=== PATIENT | female | born 1935 | race Caucasian/White ===

== ENCOUNTER → 2019-06-27 12:32 | Outpatient (CLI) | payer MEDICARE, MEDICAID, SELFPAY ==
--- NOTE | ~2019-06-27 | CT_ITS ---
EXAMINATION: CT abdomen pelvis wo con EXAM DATE: 06/27/2019 12:57 INDICATION: Right lower quadrant pain. History of colon resection. Constipation. TECHNIQUE: Spiral CT of the abdomen and pelvis was performed without contrast. Axial, coronal and s agittal images were reviewed. The dose-length product (DLP) for this examination was 960.87 mGy-cm. The exposure was tailored according to patient size (auto mA exposure control), and iterative recons truction (ASIR) was used as additional dose reduction technique. There is no prior study for compari son. FINDINGS: The liver, spleen, adrenal glands and pancreas are unremarkable. Gallbladder is unremarkab le. No biliary obstruction. There is no nephrolithiasis or hydronephrosis. The uterus is antevert ed and morphologically normal. The bladder is unremarkable. There is no retroperitoneal or pelvic lymphadenopathy. There is mild to moderate scattered arteriosclerotic disease. Anterior abdominal w all mesh. Probable cecal resection. There are surgical changes from intact gastric bypass surgery. There is e xpected amount of colonic stool. No free intraperitoneal gas. Cardiomegaly. The lung bases are u nremarkable. There are no osteoblastic or osteolytic lesions identified. Chronic L5 bilateral spondy lolysis with 50% anterolisthesis L5 on S1. Advanced thoracolumbar disc disease. Mild to moderate scol iosis. IMPRESSION: 1. No acute intra-abdominal findings. 2. Surgical changes. 3. Cardiomegaly. Reviewed, dictated and finalized at location B. RAL ASSISTANT
== END ==
PROVIDERS: Visit Provider Surgery
DX: R10.31 Right lower quadrant pain (principal); I51.7 Cardiomegaly
CPT/HCPCS: 74176

== ENCOUNTER 2019-11-05 10:40 | Outpatient (CLI) | payer MEDICARE, MEDICAID, SELFPAY ==
[2019-11-05 11:20] LABS: Hematocrit 33.3 % (37.0-47.0); Hemoglobin 11.2 g/dL (12.0-15.0); Mean Corpuscular HGB Conc 33.6 g/dl (32-36); Mean Corpuscular Hemoglobin 34.4 pg (26-34); Mean Corpuscular Volume 102.1 fl (80-100); Mean Platelet Volume 10.8 fl (7.4-10.4); Platelet Count Result 150 k/mm3 (150-375); Red Blood Count 3.26 M/mm3 (4.2-5.4); Red Cell Distribution Width 16.4 % (11.5-14.5); White Blood Count 6.3 K/mm3 (4.5-10.0)
[2019-11-05 11:32] LABS: Albumin Level 4.4 g/dL (3.5-5.1); Blood Urea Nitrogen 42 mg/dL (7-17); Calcium 9.4 mg/dL (8.4-10.2); Carbon Dioxide 28 mmol/L (22-30); Chloride 92 mmol/L (98-107); Eosinophils Absolute Manual 0.06 K/mm3 (0.02-0.5); Eosinophils Percent Manual 1 % (0-4); Estimated Glomerular Filt Rate 47; Glucose 95 mg/dL (65-105); Lymphocytes Absolute Manual 1.44 K/mm3 (1.1-4.5); Monocytes Absolute Manual 1.07 K/mm3 (0.1-0.90); Monocytes Percent Manual 17 % (3-9); Neutrophils Percent Manual 59 % (46-73); Phosphorus 3.8 mg/dL (2.5-4.5); Platelet Estimate Adequate (Adequate); Potassium 3.9 mmol/L (3.4-5.0); Sodium 129 mmol/L (137-145); Total Cells Counted 100
[2019-11-05 11:33] LABS: Hypochromasia 1+ (NORMAL); Stomatocytes 1+ (NORMAL)
[2019-11-05 11:34] LABS: Alanine Aminotransferase 25 U/L (4-35); Albumin Level 4.3 g/dL (3.5-5.1); Alkaline Phosphatase 133 U/L (38-126); Aspartate Amino Transferase 41 U/L (14-36); Bilirubin,Total 1.1 mg/dL (0.2-1.3); Blood Urea Nitrogen 45 mg/dL (7-17); Calcium 9.3 mg/dL (8.4-10.2); Carbon Dioxide 27 mmol/L (22-30); Chloride 93 mmol/L (98-107); Cholesterol 120 mg/dL (0-200); Estimated Glomerular Filt Rate 47; Glucose 94 mg/dL (65-105); HDL Direct 61 mg/dL; Magnesium 1.6 mg/dL (1.6-2.3); Sodium 129 mmol/L (137-145); Triglycerides 56 mg/dL (<150)
[2019-11-05 11:44] LABS: Parathyroid Intact 141.2 pg/mL (7.5-53.5)
[2019-11-05 11:45] LABS: LDL Cholesterol Direct 45 mg/dL
[2019-11-05 12:17] LABS: Free T4 Free Thyroxine 2.09 ng/mL (0.78-2.19); Vitamin D 25 Hydroxy 54.5 ng/mL
[2019-11-08 05:51] LABS: Ionized Calcium 4.9 mg/dL (4.8-5.6)
== END 2019-11-05 10:41 | disposition home or self-care (01) ==
PROVIDERS: PCP Family Medicine; Referring Provider Internal Medicine Cardiovascular Disease; Visit Provider Internal Medicine Endocrinology, Diabetes & Metabolism
DX: G89.29 Other chronic pain (principal); M54.5 Low back pain; I10 Essential (primary) hypertension; E03.9 Hypothyroidism, unspecified; E21.3 Hyperparathyroidism, unspecified; E83.42 Hypomagnesemia
CPT/HCPCS: 36415; 80053; 80061; 80069; 82306; 82330; 83735; 83970; 84100; 84439; 84443; 85025; 99212; G0463

== ENCOUNTER 2019-11-26 08:06 | Outpatient (CLI) | payer MEDICARE, MEDICAID, SELFPAY ==
--- NOTE | ~2019-11-26 | NM_ITS ---
EXAMINATION: NM parathyroid w imaging DATE: 11/26/2019 15:12 INDICATION: Hypothyroidism TECHNIQUE: 21.1 mCi Tc99m Cardiolite (sestamibi) was administered by intravenous route. Anterior imag es of the neck were obtained at 10 minutes and 2 hours. COMPARISON: None. FINDINGS/IMPRESSION: There is no focus of persistent activity in the area of the thyroid or mediastinum to suggest parathy roid adenoma. Reviewed, dictated and finalized at location A.
== END 2019-11-26 08:07 | disposition home or self-care (01) ==
PROVIDERS: PCP Family Medicine; Visit Provider Internal Medicine Endocrinology, Diabetes & Metabolism
DX: E03.9 Hypothyroidism, unspecified (principal); E21.3 Hyperparathyroidism, unspecified
CPT/HCPCS: 78070; A9500

== ENCOUNTER 2019-12-09 13:26 | Outpatient (CLI) | payer MEDICARE, MEDICAID, SELFPAY ==
--- NOTE | ~2019-12-09 | DEXA_ITS ---
Bone Density Report Name: Radha Knox Age: 83 Sex: Female Ethnicity: White Date of : 1935 Indication: osteopenia; monitoring treatment; hyperparathyroidism; height loss; hysterectomy; rheumatoid arthritis; postmenopausal Referring Provider: Guera Stewart Study: Bone densitometry was performed. Exam Date: December 09, 2019 Accession number: [id number] Bone Density: Region BMD T-score Z-score Classification AP Spine (L1, L2, L3) 0.919 -0.9 1.9 Normal Femoral Neck (Left) 0.557 -2.6 -0.1 Osteoporosis Total Hip (Left) 0.763 -1.5 0.9 Osteopenia Total Hip Bilateral Avg 0.746 -1.7 0.8 Osteopenia Femoral Neck (Right) 0.543 -2.8 -0.2 Osteoporosis Total Hip (Right) 0.727 -1.8 0.6 Osteopenia World Health Organization criteria for BMD impression classify patients as: Normal (T-score at or above -1.0), Osteopenia (T-score between -1.0 and -2.5), or Osteoporosis (T-score at or below -2.5). 10-year Fracture Risk: FRAX not reported because: Some T-score for Spine Total or Hip Total or Femoral Neck at or below -2.5 Treated for osteoporosis Previous Exams: Region Exam Age BMD T-score BMD Change BMD Change Date g/cm2 vs Baseline vs Previous AP Spine(L1, L2, L3) 12/09/2019 83 0.919 -0.9 0.052(6.0%)# 0.047(5.4%)# 09/07/2005 69 0.872 -1.3 0.005(0.5%) 0.005(0.5%) 12/04/2002 66 0.868 -1.4 Total Hip(Left) 12/09/2019 83 0.763 -1.5 0.002(0.3%)# 0.003(0.3%)# 09/07/2005 69 0.761 -1.5 0.000(0.0%) 0.000(0.0%) 12/04/2002 66 0.761 -1.5 Total Hip(Right) 12/09/2019 83 0.727 -1.8 -0.032(-4.2%)# 0.058(8.6%)# 09/07/2005 69 0.669 -2.2 -0.090(-11.8%) -0.090(-11.8%) 12/04/2002 66 0.759 -1.5 *Denotes significance at 95% confidence level, LSC for AP Spine = 0.022 g/cm2, LSC for Total Hip = 0.027 g/cm2 Clinical Information Provided by Patient: Has rheumatoid arthritis Is being treated for osteoporosis Has used the following medications: Fosamax (i.e. alendronate), Vitamin D, Calcium Has the following medical conditions: Hyperparathyroidism, Hysterectomy Patient maximum height was 63 Menopause Age: 49 Drinks caffeinated beverages Onset of menses at age 13 Number of children 6 Impression: The patient has osteoporosis, based on the Right Femoral Neck T-score. No significant bone loss was observed. Discussion: PATIENT UNDER TREATMENT WITH NO SIGNIFICANT BMD LOSS SINCE LAST EXAM. In an untreated patient, BMD typi
== END 2019-12-09 13:27 | disposition home or self-care (01) ==
PROVIDERS: PCP Family Medicine; Visit Provider Internal Medicine Endocrinology, Diabetes & Metabolism
DX: E21.3 Hyperparathyroidism, unspecified (principal); M81.0 Age-related osteoporosis without current pathological fracture; M85.852 Other specified disorders of bone density and structure, left thigh; M85.851 Other specified disorders of bone density and structure, right thigh
CPT/HCPCS: 77080

== ENCOUNTER 2020-02-23 10:53 | Outpatient (CLI) | payer MEDICARE, MEDICAID, SELFPAY ==
[2020-02-23 12:29] LABS: Anion Gap 7 mmol/L (8-16); Blood Urea Nitrogen 38 mg/dL (7-17); Calcium 9.5 mg/dL (8.4-10.2); Carbon Dioxide 32 mmol/L (22-30); Chloride 95 mmol/L (98-107); Estimated Glomerular Filt Rate 47; Glucose 95 mg/dL (65-105); Magnesium 1.7 mg/dL (1.6-2.3); Sodium 134 mmol/L (137-145)
== END 2020-02-23 10:54 | disposition home or self-care (01) ==
LOC: ANHLAB 11:01 → ANHVASCINF 11:10
PROVIDERS: Referring Provider Family Medicine; Visit Provider Internal Medicine Cardiovascular Disease
DX: I50.32 Chronic diastolic (congestive) heart failure (principal); E83.42 Hypomagnesemia
CPT/HCPCS: 36415; 80048; 83735; 99212; G0463

== ENCOUNTER 2020-05-10 14:16 | Outpatient (CLI) | payer MEDICARE, MEDICAID, SELFPAY ==
[2020-05-10 15:17] LABS: Anion Gap 6 mmol/L (8-16); Blood Urea Nitrogen 57 mg/dL (7-17); Calcium 9.8 mg/dL (8.4-10.2); Carbon Dioxide 32 mmol/L (22-30); Chloride 99 mmol/L (98-107); Estimated Glomerular Filt Rate 43; Glucose 89 mg/dL (65-105); Magnesium 1.9 mg/dL (1.6-2.3); Potassium 4.5 mmol/L (3.4-5.0); Sodium 137 mmol/L (137-145)
== END 2020-05-10 14:17 | disposition home or self-care (01) ==
LOC: ANHLAB 14:21
PROVIDERS: Visit Provider Internal Medicine Cardiovascular Disease
DX: I50.32 Chronic diastolic (congestive) heart failure (principal)
CPT/HCPCS: 36415; 80048; 83735

== ENCOUNTER 2020-08-24 09:18 | Inpatient (IN) | payer MEDICARE, MEDICAID, SELFPAY ==
[2020-08-24] VITALS (46 sets, daily range): BP systolic 74–126; BP diastolic 34–75; PULSE 60–94; RESP 13–21; TEMP 36.2–36.8; O2SAT 95–100; BMI 43.4
--- NOTE | ~2020-08-24 | CT_ITS ---
EXAMINATION: CT cervical spine [facility] EXAM DATE: 08/25/2020 13:37 INDICATION: Neck pain. TECHNIQUE: Spiral CT of the cervical spine was performed without contrast. Axial images were reviewe d. Coronal and sagittal reformatted images were also reviewed. The dose-length product (DLP) for thi s examination was 450.33 mGy-cm. The exposure was tailored according to patient size (auto mA exposu re control), and iterative reconstruction (ASIR) was used as additional dose reduction technique. ere is no prior study for comparison. FINDINGS: There is calcified pannus posterior to the odontoid process. The vertebral bodies are al igned in the AP dimension. There is moderate to severe loss of the disc height at C5-6 and 6-7. The odontoid process is intact. The lateral masses of C1 line up with C2. Prevertebral soft tissue a nd pre-dens space are within normal limits. There are no acute fractures identified. Level by level evaluation: C2-C3: Disc does not extend beyond the endplate margin. Uncovertebral joint arthropathy: None. Facet joint arthropathy: Moderate right, mild left. Neural foraminal stenosis: No stenosis. Central canal stenosis: No stenosis. C3-C4: Disc does not extend beyond the endplate margin. Uncovertebral joint arthropathy: None. Facet joint arthropathy: Mild to moderate bilateral. Neural foraminal stenosis: No stenosis. Central canal stenosis: No stenosis. C4-C5: There is a mild diffuse disc bulge. Uncovertebral joint arthropathy: Mild bilateral. Facet joint arthropathy: Mild to moderate bilateral. Neural foraminal stenosis: No stenosis. Central canal stenosis: No stenosis. C5-C6: There is a mild diffuse disc bulge. Uncovertebral joint arthropathy: Mild to moderate bilateral. Facet joint arthropathy: Mild to moderate bilateral. Neural foraminal stenosis: Mild to moderate right, mild left. Central canal stenosis: No stenosis. C6-C7: There is a mild diffuse disc bulge. Uncovertebral joint arthropathy: Mild to moderate bilateral. Facet joint arthropathy: Mild to moderate bilateral. Neural foraminal stenosis: Mild bilateral. Central canal stenosis: No stenosis. C7-T1: Disc does not extend beyond the endplate margin. Uncovertebral joint arthropathy: None. Facet joint arthropathy: Moderate bilateral. Neural foraminal stenosis: No stenosis. Central canal stenosis: No stenosis. IMPRESSION: 1. Cervical spondylosis most advanced C5-6 and 6-7. 2. No central canal stenosis or acute findings. Reviewed, dictated and finalized at location A.
--- NOTE | ~2020-08-24 | CT_ITS ---
EXAMINATION: CTA chest DATE: 08/24/2020 10:44 CDT INDICATION: Sudden chest pain in the arm for 3 days TECHNIQUE: Computed tomographic angiography (CTA) of the chest was performed with 100 mL Omnipaque-35 0 intravenous contrast. The dose-length product was 857.55 mGy-cm. Maximum intensity projection 3D-re constructions of the aorta and other arteries were constructed by the technologist on a separate work station. Automated exposure control and iterative reconstruction technique were employed. COMPARISON: Chest x-ray dated 10/18/2017. FINDINGS: There is no evidence for aortic aneurysm or dissection. There is atherosclerosis of the aor ta and coronary arteries. Small amount of gas in the heart, consistent with recent injection. Cardiom egaly. No significant pleural or pericardial effusion. No thoracic lymphadenopathy. No evidence for p ulmonary embolism. No endobronchial lesions. Calcified granuloma right lower lobe. Bibasilar dependen t atelectasis. No pneumothorax identified. There is dependent atelectasis. Dextroscoliosis with moder ate thoracic spondylosis. No suspicious pulmonary nodules or masses. IMPRESSION: 1. No findings to account for patient's symptoms. No evidence for aortic aneurysm, dissection or pulm onary embolism. Reviewed, dictated and finalized at location B. IMPRESSION: 1. No findings to account for patient's symptoms. No evidence for aortic aneury sm, dissection or pulmonary embolism.
--- NOTE | ~2020-08-24 | CT_ITS ---
EXAMINATION: CT thoracic spine w con DATE: 08/24/2020 17:08 INDICATION: Back pain. TECHNIQUE: Computed tomography (CT) of the thoracic spine was performed with 100 mL Omnipaque 350 int ravenous contrast. Automated exposure control and iterative reconstruction technique were employed. T he dose-length product was 858 mGy-cm. COMPARISON: None FINDINGS: There is 21 degrees dextroscoliosis of thoracic spine. There is mild chronic anterior wedgi ng of multiple vertebral bodies. No acute fracture. There is decreased disc height at multiple levels including severely decreased disc height from T2-T3 through T5-T6 and T8-T9 through L1-L2. There is a healing fracture right 11th rib. The discs are bulging from T4-T5 through T12-L1 with mild central canal stenosis. There is multilevel facet joint osteoarthritis, mild to moderate at most levels. Ther e is mild neural foraminal stenosis at multiple levels bilaterally. On the right, there is moderate n eural foraminal stenosis at T2-T3, T3-T4, and T10-T11. On the left, there is moderate neural foramina l stenosis at T2-T3 and T8-T9 and severe neural foraminal stenosis at T9-T10 and T10-T11. IMPRESSION: 1. Severe thoracic spondylosis. 2. Thoracic dextroscoliosis. Reviewed, dictated and finalized at location A.
--- NOTE | ~2020-08-24 | US_ITS ---
EXAMINATION: US venous doppler LE EXAM DATE: 08/24/2020 15:42 INDICATION: Bilateral leg edema. Swelling. TECHNIQUE: Multiple grayscale, color flow and Doppler images of the lower extremity deep venous syste ms bilaterally were obtained and reviewed. Comparison is made to prior examination from 06/11/2012. FINDINGS: Right side: The right common femoral, femoral and profunda veins demonstrate normal color flow, respi ratory variation, augmentation and compressibility. Compressibility, color flow confirmed within the right popliteal, posterior tibial, peroneal, and greater saphenous veins. Cystic mass in the poplit eal fossa measuring 2.0 x 4.8 x 2.7 cm, Sanchez's cyst. Left side: The left common femoral, femoral and profunda veins demonstrate normal color flow, respira tory variation, augmentation and compressibility. Compressibility, color flow confirmed within the l eft popliteal, posterior tibial, peroneal, and greater saphenous veins. IMPRESSION: 1. No lower extremity deep venous thrombosis bilaterally. 2. 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 Reviewed, dictated and finalized at location A.
--- NOTE | 2020-08-24 10:05 | ECG_ITS ---
Measurements Intervals [place] Rate: 86 P: DC: 0 QRS: 176 QRSD: 101 T: 9 QT: 359 QTc: 431 Interpretive Statements ATRIAL FIBRILLATION RIGHT AXIS DEVIATION INCOMPLETE RIGHT BUNDLE BRANCH BLOCK LOW VOLTAGE- PRECORDIAL LEADS CANNOT RULE OUT SEPTAL INFARCT, AGE INDETERMINATE BORDERLINE ST-T WAVE ABNORMALITY- INFERIOR LEADS BASELINE ARTIFACT- I, III, AVR, AVL, AVF, V5-V6 ABNORMAL ECG Electronically Signed On 08-24-2020 10:28:42 CDT by Jf Melvin D.O.
[2020-08-24 10:18] LABS: Basophils Percent Auto 0.7 % (0.2-1.2); Eosinophils Absolute Auto 0.1 K/mm3 (0-0.3); Eosinophils Percent Auto 1.8 % (0-4.4); Hematocrit 36.9 % (37.0-47.0); Hemoglobin 12.2 g/dL (12.0-15.0); Immature Granulocyte Absolute 0.02 K/mm3 (0.00-0.031); Immature Granulocyte Percent A 0.3 % (0-0.5); Lymphocytes Absolute Auto 2.34 K/mm3 (0.9-3.2); Lymphocytes Percent Auto 38.2 % (18.3-44.2); Mean Corpuscular HGB Conc 33.1 g/dl (32-36); Mean Corpuscular Hemoglobin 35.8 pg (26-34); Mean Corpuscular Volume 108.2 fl (80-100); Mean Platelet Volume 12.6 fl (7.4-10.4); Monocytes Absolute Auto 1.4 K/mm3 (0.1-0.6); Monocytes Percent Auto 22.7 % (2.6-8.5); Neutrophils Absolute Auto 2.2 K/mm3 (1.3-6.7); Neutrophils Percent Auto 36.3 % (45.5-73.1); Nucleated Red Blood Cells Absolute Auto 0.1 K/mm3 (0.0-0.012); Nucleated Red Blood Cells Perc 2.1 % (0.0-0.2); Platelet Count Result 114 k/mm3 (150-375); Red Blood Count 3.41 M/mm3 (4.2-5.4); Red Cell Distribution Width 18.4 % (11.5-14.5); White Blood Count 6.1 K/mm3 (4.5-10.0)
[2020-08-24 10:21] LABS: Estimated CRCL calculation 30 ml/min; Estimated Glomerular Filt Rate 39
[2020-08-24 10:28] LABS: INR 1.4; Prothrombin Time 18.1 Seconds (11.1-14.7)
[2020-08-24 10:30] LABS: Anisocytosis 1+ (NORMAL); Ovalocytes 1+ (NORMAL); Poikilocytosis 1+ (NORMAL); Stomatocytes 1+ (NORMAL); Target Cells 1+ (NORMAL)
[2020-08-24 11:08] LABS: Add Urine Microscopic? YES; Appearance Urine Cloudy (Clear); Bacteria Urine Trace /hpf; Bilirubin Urine Negative (Negative); Color Urine Yellow (Yellow); Glucose Urine UA Negative (Negative); Ketones Urine Negative (Negative); Leukocyte Esterase Ur 1+ LEU/UL (Negative); Mucus Urine Rare /lpf; Nitrate Urine Positive (Negative); Protein Urine Negative (Negative); RBC Urine 0-2 /hpf (0-2); Specific Grav Ur 1.017 (1.001-1.035); Urobilinogen Urine Negative mg/dL (<2.0)
[2020-08-24 11:15] LABS: Blood Urine Negative (Negative)
--- NOTE | 2020-08-24 11:38 | PC.NURSE ---
1115 - This Rn assumed care of patient, bedside shift report obtained from WILLIAMS Boggs. Patient reporting pain and requesting pain medicine. 1130 - Hydromorphone order cancelled due to blood pressure of 97/60 per MD. Patient requesting Tramadol as she takes this at home per her POA at bedside. MD Cheng informed.
[2020-08-24 12:03] LABS: Alanine Aminotransferase 30 U/L (4-35); Albumin Level 3.7 g/dL (3.5-5.1); Alkaline Phosphatase 125 U/L (38-126); Anion Gap 6 mmol/L (8-16); Aspartate Amino Transferase 45 U/L (14-36); Bilirubin,Total 1.2 mg/dL (0.2-1.3); Blood Urea Nitrogen 52 mg/dL (7-17); Calcium 9.2 mg/dL (8.4-10.2); Carbon Dioxide 28 mmol/L (22-30); Chloride 96 mmol/L (98-107); Estimated CRCL calculation 30 ml/min; Estimated Glomerular Filt Rate 39; Glucose 90 mg/dL (65-105); Potassium 4.9 mmol/L (3.4-5.0); Sodium 130 mmol/L (137-145)
[2020-08-24 12:13] LABS: Troponin I < 0.012 ng/mL (0.000-0.034)
[2020-08-24 12:17] LABS: NT Pro B Type Natriuretic Pept 2290 PG/ML (5-100)
[2020-08-24] MEDS: traMADol/ACETAMINOPHEN (*CRX) (ULTRACET) 37.5/325 MG TABLET 1 TAB PO (12:18)
--- NOTE | 2020-08-24 13:02 | PC.NURSE ---
1302 - Meal tray ordered for patient. sterile technician at bedside for 2 hour troponin blood draw.
--- NOTE | 2020-08-24 13:16 | PC.NURSE ---
1310 - MD Cheng informed of patient's blood pressure of 88/50, no new orders at this time. Per MD no fluids ordered due to potential fluid overload. 1315 - MD Cheng informed of patient's blood pressure of 78/56, no new orders at this time.
--- NOTE | 2020-08-24 13:37 | PC.NURSE ---
1330 -JANET Aguilera updated on patient's blood pressures. Manual blood pressure 80/60, patient remains alert but drowsy and is conversing with this RN. Family at bedside. Patient repositioned in bed and is now being assisted with eating meal tray by family.
[2020-08-24 13:41] LABS: Troponin I < 0.012 ng/mL (0.000-0.034)
--- NOTE | 2020-08-24 14:40 | PC.NURSE ---
Chrissy, Hospitalist [employer]IT[employer] REPAIRER at bedside, aware of persistent hypotension and current blood pressure of 86/52. Patient remains alert, conversing with RN. Daughter at bedside updated on plan of care by RANDY Lowe.
--- NOTE | 2020-08-24 14:45 | PC.NURSE ---
1430 - This RN checking with RANDY Lowe and MD Cheng regarding fluid order due to BLE edema and CHF hx.
--- NOTE | 2020-08-24 14:53 | ED.CHESTPAIN ---
HPI - Chest Pain General Chief Complaint: Chest Pain Stated Complaint: chest pain/leg swelling/weakness Time Seen by Provider: 08/24/20 09:25 Source: patient and family Mode of arrival: ambulatory Limitations: no limitations History of Present Illness HPI narrative: 84-year-old female Patient complains of a 3-day history of severe pain in her left upper chest She notes that this pain began suddenly while she was simply sitting and at rest and has not improved, if anything it is a little worse She does not notice anything that relieves or exacerbates this pain In addition to the pain she notes that her legs are bilaterally much more swollen than usual, and that she feels like she is urinating less than usual She does not have any particular shortness of breath, she is not diaphoretic, she does not have a cough or a fever, she does not have abdominal pain or vomiting Her past history is notable for atrial fibrillation and she takes Eliquis for this, aortic stenosis, and diastolic heart failure and is on Lasix for that Her most recent appointment with Dr. Schulz was in April, she says she has been taking her medications Related Data Home Medications Medication Instructions Recorded Confirmed apixaban 5 mg tablet 5 mg PO BID 05/29/19 08/02/20 ascorbic acid (vitamin C) 500 mg mg PO 05/29/19 08/02/20 capsule thiamine HCl (vitamin B1) 50 mg 50 mg PO BID tablet 08/27/19 08/02/20 tablet magnesium oxide 800 mg PO BID tablet 10/22/19 08/02/20 potassium chloride 10 mEq 20 meq PO DAILY tablet 01/26/20 08/02/20 tablet,extended release vitamin B complex 1 tablet PO DAILY 01/26/20 08/02/20 bumetanide 0.5 mg tablet 0.5 mg PO BID tablet 08/02/20 08/02/20 Allergies Allergy/AdvReac Type Severity Reaction Status Date / Time adhesive Allergy Unknown rash Verified 08/24/20 10:52 ciprofloxacin Allergy Unknown Upset Verified 08/24/20 10:52 stomach codeine Allergy Unknown Unknown Verified 08/24/20 10:52 diazepam Allergy Unknown Unknown Verified 08/24/20 10:52 fenoprofen Allergy Unknown Unknown Verified 08/24/20 10:52 lorazepam Allergy Unknown Unknown Verified 08/24/20 10:52 Sulfa (Sulfonamide Allergy Unknown Unknown Verified 08/24/20 10:52 Antibiotics) Review of Systems Review of Systems: All systems reviewed & are unremarkable except as noted in HPI and below Constitutional: Constitutional: Denies chills, Reports fatigue, Denies fever(s), Denies headache(s) and Reports weakness Eyes: Eyes: Reports no additional eye complaints and Denies change in vision ENT: Denies headache(s), Denies epistaxis, Denies nasal congestion and Denies sore throat Cardiovascular: Cardiovascular: Reports chest pain, Denies leg edema, Denies palpitations and Denies dyspnea Respiratory: Respiratory: Denies cough and Denies dyspnea Gastrointestinal: Gastrointestinal: Denies abdominal pain, Denies diarrhea, Denies nausea and Denies vomiting Genitourinary: Genitourinary: Denies hematuria, Denies urinary frequency and Denies dysuria Musculoskeletal: Musculoskeletal: Reports myalgias, Denies deformity, Denies arthralgias, Denies joint swelling, Denies muscle weakness and Denies numbness Integumentary/Breasts: Skin/Breast: Denies rash and Denies wounds Neurologic: Denies headache(s), Denies focal weakness, Denies numbness and Denies weakness Psychiatric: Psychiatric: Reports no additional psychiatric complaints Endocrine: Endocrine: Reports fatigue and Denies palpitations Hematologic/Lymphatic: Hematologic/Lymphatic: Denies easy bleeding and Reports easy bruising PMFSH Past Medical History Medical History Anxiety Aortic stenosis, moderate Chronic atrial fibrillation Chronic diastolic heart failure Chronic low back pain without sciatica CKD (chronic kidney disease) stage 3, GFR 30-59 ml/min Essential (primary) hypertension History of colon cancer History of colon cancer His
--- NOTE | 2020-08-24 14:59 | PM.IMHP ---
H&P: HPI History of Present Illness Date/Time: 08/24/20 14:59Thikaylin is a 84-year-old female patient with diastolic congestive heart failure, chronic atrial fibrillation. Chronic back pain. 3 day history of severe pain to the left upper chest. When I palpated her upper chest she did have a reducible pain. The patient does have severe osteoporosis without any pathological fracture. She also has osteoarthritis. The patient does take Ultram at home. The patient also has chronic renal failure and takes Bumex at home. The patient denies any shortness of breath. She stated that her a chest pain does not radiate down her left arm or upper left neck. It does not radiate to her back. She does not have any nausea vomiting. She has no fever. The patient stated that she has been taking her Eliquis. Patient's last echo was on 11/12/2018 and her EF was between 60 and 65%. Diastolic dysfunction. Severe aortic stenosis peak gradient of 44 mm/hg. Aortic Rosy appears severely restricted. Still shows no findings to account for patient's symptoms. No evidence of aortic aneurysm dissection or pulmonary embolism. Blood pressure was low at 70 8/56 and 80/60. The granddaughter also reported that the patient had low urinary output as well. The patient is also complaining of having motility issues. The patient had been given and Ultram in the emergency room for the pain. The patient has 4+ pitting edema. Services on 08/24/2020. Chief Complaint: Chest pain Review of Systems Review of Systems: All systems reviewed & are unremarkable except as noted in HPI and below Constitutional: Constitutional: Reports as per HPI and Reports no additional constitutional complaints Eyes: Eyes: Reports as per HPI and Reports no additional eye complaints ENT: Reports system reviewed and no additional complaints, except as documented and Reports Normal hearing present Cardiovascular: Cardiovascular: Reports no additional cardiovascular complaints Respiratory: Respiratory: Reports no additional respiratory complaints and Reports no additional respiratory complaints Gastrointestinal: Gastrointestinal: Reports as per HPI and Reports no additional gastrointestinal complaints Musculoskeletal: Musculoskeletal: Reports no additional musculoskeletal complaints Integumentary/Breasts: Skin/Breast: Reports system reviewed and no additional complaints, except as docu and Reports as per HPI Neurologic: Reports system reviewed and no additional complaints, except as documented, Reports as per HPI and Reports Normal hearing present Psychiatric: Psychiatric: Reports no additional psychiatric complaints and Reports as per HPI Endocrine: Endocrine: Reports no additional endocrine complaints Hematologic/Lymphatic: Hematologic/Lymphatic: Reports no additional hematologic/lymphatic complaints Allergic/Immunologic: Allergic/Immunologic: Reports no additional allergic/immunologic complaints FOR[facility]LY [facility] Past Medical History Medical History Anxiety Aortic stenosis, moderate Chronic atrial fibrillation Chronic diastolic heart failure Chronic low back pain without sciatica CKD (chronic kidney disease) stage 3, GFR 30-59 ml/min Essential (primary) hypertension History of colon cancer History of colon cancer History of small bowel obstruction Hyperparathyroidism Hypomagnesemia Hypothyroidism (acquired) Insomnia Osteoarthritis Osteoporosis without current pathological fracture RLS (restless legs syndrome) Urinary incontinence in female Vitamin D deficiency Surgical History Surgical History H/O gastric bypass (~1959) History of abdominal surgery History of x6 1953, 1955, 1958, 1960, 1962,1964 History of carpal tunnel release (~2014) History of colon resection (~2003) History of exploratory laparotomy massive adhesiolysis removal mesh foreign body release of small bowel
[2020-08-24] MEDS: SODIUM CHLORIDE 0.9% IV 1,000 ML 30 ML IV CONT (15:14)
--- NOTE | 2020-08-24 15:18 | PC.NURSE ---
1518 - NS 500 mL bolus started per MD Cheng, then infuse remaining 500mL of NS at 30/mL after reassessment of patient per MD Cheng.
--- NOTE | 2020-08-24 16:15 | PC.NURSE ---
1548 - Report called to WILLIAMS Baez by JANET Aguilera.
--- NOTE | 2020-08-24 16:27 | PM.CNCAR ---
Assessment and Plan Assessment and plan (1) Aortic stenosis, moderate: Code(s): I35.0 - Nonrheumatic aortic (valve) stenosis Status: Acute Assessment and Plan: History of moderate aortic stenosis. 2D echocardiogram with Dopplers ordered and will be reviewed. (2) Chronic atrial fibrillation: Code(s): I48.20 - Chronic atrial fibrillation, unspecified Status: Acute Assessment and Plan: On anticoagulation heart rate is controlled. Continue metoprolol for rate control as long as blood pressure allows (3) Hypotension: Code(s): I95.9 - Hypotension, unspecified Status: Acute Assessment and Plan: I have already given her verbal order for 500 cc fluid bolus with some improvement in her blood pressure. Avoid over use of pain medications. Hold lisinopril for now. (4) Nonspecific chest pain: Code(s): R07.9 - Chest pain, unspecified Status: Acute Assessment and Plan: Her chest pain is constant in nature and severe. It is radiating to her back and her back pain is highly reproducible by pushing on her spine. She also has sub mammary left-sided chest pain which is also reproducible by pushing on her chest. The fact her troponins are negative despite this longstanding and severe chest pain most likely indicates that this is not coronary in etiology. Other possibilities are most likely musculoskeletal or even GI/ulcer disease versus other (5) Chronic anticoagulation: Code(s): Z79.01 - senior care (current) use of anticoagulants Status: Acute Assessment and Plan: On Eliquis I did discuss this case over with Wendi Oliver. Consider CT scan of abdomen or other evaluation of her thoracic spine with a plain x-ray to ensure there is no fracture. History of Present Illness History of Present Illness Consult date/time: 08/24/20 16:27 Requesting physician: Antwon Cheng MD Consult reason: chest pain Reason For Visit: chf, atypical chest pain Narrative: Date of service 08/24/2020 Reason for consultation chest pain History patient is an 84-year-old female who has a history of aortic stenosis. She follows with Dr. Schulz for her aortic stenosis as well as her atrial fibrillation. She came to hospital because of severe epigastric/chest pain which radiating to the left and right sides and into the back. Her symptoms started about 4 days ago and has essentially been constant throughout that entire time frame. Initially her granddaughter states that it did wax and wane initially but has become essentially constant. Improved with Librium and tramadol. She has been able to sleep a little bit here there with these medications. She describes it as a heaviness and a pressure sensation. She denies any shortness of breath but does have dyspnea with activity. No syncope, presyncope, palpitations, paroxysmal nocturnal dyspnea or orthopnea. She came to the hospital because of these symptoms and a CT scan of chest was performed. CT scan did not show any aortic dissection or any pulmonary embolism. Her chest pain is not pleuritic. She was also hypotensive in the emergency department but she was receiving tramadol and pain medications although this isn't new for her and typically she is not hypotensive. Her swelling is worse than usual. Review of Systems Review of Systems: All systems reviewed & are unremarkable except as noted in HPI and below Constitutional: Constitutional: Reports weakness Eyes: Eyes: Denies blurry vision ENT: Reports Normal hearing present Cardiovascular: Cardiovascular: Reports chest pain, Reports pedal edema and Reports leg edema Respiratory: Respiratory: Reports dyspnea on exertion Gastrointestinal: Gastrointestinal: Denies abdominal pain and Reports melena Genitourinary: Genitourinary: Denies flank pain Musculoskeletal: Musculoskeletal: Reports back pain Integumentary/Breasts: Skin/Breast: Reports dry skin Neurologic: Denies
[2020-08-24 17:17] LABS: Troponin I < 0.012 ng/mL (0.000-0.034)
--- NOTE | 2020-08-24 17:23 | ADMGEN ---
This patient, Radha Knox, was admitted to IMU Room 206-02 at 1555. Patient/family oriented to hospital policies and general routines including ID bracelet, bed and alarms, visiting hours, pain management, procedures, bathroom and other care routines, personal items, smoking policy, room service/diet, and visiting hours. Information on how to activate the Rapid Response Team has been discussed. Patient/Family are encouraged to report perceived risks to care and to ask questions if they do not understand what they are told or what they should do.
[2020-08-24] MEDS: HYDROcodone/acetaminophen (*CRX) 5-325 MG TABLET 1 TAB PO (21:08)
[2020-08-25] VITALS (10 sets, daily range): BP systolic 100–122; BP diastolic 60–82; PULSE 64–86; RESP 12–18; TEMP 35.9–36.6; O2SAT 94–100
[2020-08-25] MEDS: HYDROcodone/acetaminophen (*CRX) 5-325 MG TABLET 1 TAB PO ×3 (01:29→12:58)
[2020-08-25 06:00] LABS: Basophils Percent Auto 0.5 % (0.2-1.2); Eosinophils Absolute Auto 0.1 K/mm3 (0-0.3); Eosinophils Percent Auto 1.6 % (0-4.4); Hematocrit 35.3 % (37.0-47.0); Hemoglobin 11.6 g/dL (12.0-15.0); Immature Granulocyte Absolute 0.03 K/mm3 (0.00-0.031); Immature Granulocyte Percent A 0.5 % (0-0.5); Lymphocytes Absolute Auto 1.69 K/mm3 (0.9-3.2); Lymphocytes Percent Auto 27.6 % (18.3-44.2); Mean Corpuscular HGB Conc 32.9 g/dl (32-36); Mean Corpuscular Hemoglobin 34.9 pg (26-34); Mean Corpuscular Volume 106.3 fl (80-100); Mean Platelet Volume 12.4 fl (7.4-10.4); Monocytes Absolute Auto 1.5 K/mm3 (0.1-0.6); Monocytes Percent Auto 24.1 % (2.6-8.5); Neutrophils Absolute Auto 2.8 K/mm3 (1.3-6.7); Neutrophils Percent Auto 45.7 % (45.5-73.1); Nucleated Red Blood Cells Absolute Auto 0.2 K/mm3 (0.0-0.012); Nucleated Red Blood Cells Perc 3.1 % (0.0-0.2); Platelet Count Result 103 k/mm3 (150-375); Red Blood Count 3.32 M/mm3 (4.2-5.4); White Blood Count 6.1 K/mm3 (4.5-10.0)
--- NOTE | 2020-08-25 06:00 | ECHO_ITS ---
Patient Info Name: Radha Knox Age: 84 years : 1935 Gender: Female Ht: 59 in Wt: 214 lbs BSA: 2.07 m2 HR: 77 bpm BP: 104 / 77 mmHg Heart Rhythm: Atrial Fibrillation Technical Quality: Good Exam Date: 08/25/2020 10:27 AM Exam Location: [facility] Patient Status: Inpatient Admit Date: 08/24/2020 Staff Ordering Physician: Antwon Cheng MD Saute Chef: Saud Davenport RDCS, RT Attending Provider: Myla Hendrix MD Referring Physician: Prosper RAMIREZ; Exam Type: CA echo doppler color flow Study Info Indications I50.9 - Heart failure, unspecified Complete two-dimensional, color flow and Doppler transthoracic echocardiogram is performed. Summary 1. Complete two-dimensional, color flow and Doppler transthoracic echocardiogram is performed. 2. Left ventricular chamber dimension is normal. 3. Left ventricular systolic function is normal, estimated at 60-65%. 4. There is mildly increased left ventricular wall thickness. 5. The left ventricular diastolic function is abnormal. 6. Right ventricular chamber dimension is mildly enlarged. 7. There is severe aortic valve stenosis with a peak velocity of 378 cm/s, mean gradient of 29 mmHg, and aortic valve area of 0.4 cm2. 8. There is moderate aortic valve regurgitation. 9. There is severe aortic valve calcification. 10. There is severe aortic stenosis but I think the calculated aortic valve area of 0.4 centimeters squared is more stenotic than it really is. 11. The mitral valve has thickened leaflets and calcified annulus. 12. There is moderate mitral valve regurgitation. 13. There is moderate tricuspid valve regurgitation. 14. Moderate pulmonary hypertension, estimated pulmonary arterial systolic pressure is 54 mmHg. 15. There is mild pulmonic regurgitation. Left Ventricle Left ventricular chamber dimension is normal. Left ventricular systolic function is normal, estimated at 60-65%. There is mildly increased left ventricular wall thickness. The left ventricular diastolic function is abnormal. Right Ventricle Right ventricular chamber dimension is mildly enlarged. Right ventricular systolic function is normal. Left Atria Left atrial chamber dimension is severely enlarged. Right Atria Right atrial chamber dimension is severely enlarged. Atrial Septum Intact interatrial septum visualized by color flow imaging. Aortic Valve The aortic valve is trileaflet. There is severe aortic valve stenosis with a peak velocity of 378 cm/s, mean gradient of 29 mmHg, and aortic valve area of 0.4 cm2. There is moderate aortic valve regurgitation. There is severe aortic valve calcification. There is severe aortic stenosis but I think the calculated aortic valve area of 0.4 centimeters squared is more stenotic than it really is. Pulmonic Valve The pulmonic valve is normal. There is no pulmonic valve stenosis. There is mild pulmonic regurgitation. Mitral Valve The mitral valve has thickened leaflets and calcified annulus. There is no mitral valve stenosis. There is moderate mitral valve regurgitation. Tricuspid Valve The tricuspid valve leaflets are normal. There is no significant tricuspid valve stenosis. There is moderate tricuspid valve regurgitation. Moderate pulmonary hypertension, estimated pulmonary arterial systolic pressure is 54 mmHg. Pericardium/Pleural The pericardium appears normal. There is no pericardial effusion. Inferior Vena Cava Dilated inferior vena cava with <50% collapse
[2020-08-25 06:02] LABS: Alanine Aminotransferase 33 U/L (4-35); Alkaline Phosphatase 121 U/L (38-126); Anion Gap 6 mmol/L (8-16); Aspartate Amino Transferase 47 U/L (14-36); Bilirubin,Total 1.3 mg/dL (0.2-1.3); Blood Urea Nitrogen 46 mg/dL (7-17); Calcium 9.4 mg/dL (8.4-10.2); Carbon Dioxide 29 mmol/L (22-30); Chloride 98 mmol/L (98-107); Estimated Glomerular Filt Rate 43; Glucose 85 mg/dL (65-105); Magnesium 2.1 mg/dL (1.6-2.3); Potassium 5.2 mmol/L (3.4-5.0); Sodium 133 mmol/L (137-145)
[2020-08-25 06:34] LABS: Anisocytosis 1+ (NORMAL); Macrocytosis 1+ (NORMAL); Stomatocytes 1+ (NORMAL); Target Cells 1+ (NORMAL)
[2020-08-25 06:38] LABS: Thyroid Stimulating Hormone Reflex 0.335 uIU/mL (0.465-4.68)
[2020-08-25 07:22] LABS: Free T4 Free Thyroxine Reflex 1.48 ng/dL (0.78-2.19)
[2020-08-25 08:32] LABS: Total Triiodothyronine (T3) 0.67 NG/ML (0.97-1.69)
[2020-08-25] MEDS: SODIUM CHLORIDE 0.9% IV 1,000 ML 30 ML IV CONT (08:55)
[2020-08-25] MEDS: traMADol/ACETAMINOPHEN (*CRX) (ULTRACET) 37.5/325 MG TABLET 1 TAB PO ×2 (10:35→16:52)
[2020-08-25] MEDS: METOPROLOL SUCCINATE EXT REL 100 MG TABCR PO (10:36)
[2020-08-25] MEDS: BUMETANIDE 1 MG TABLET PO (10:37)
[2020-08-25] MEDS: LEVOTHYROXINE SODIUM 100 MCG TABLET PO (10:37)
[2020-08-25] MEDS: lisinopriL 10 MG TABLET PO (10:37)
[2020-08-25] MEDS: PERFLUTREN LIPID MICROSPHERES 1.5 ML VIAL DILUTED TO 10 ML TOTAL VOLUME IV PUSH (11:07)
--- NOTE | 2020-08-25 12:24 | PM.PNCARD ---
Progress Note: A&P Assessment and Plan (1) Aortic stenosis, moderate: Code(s): I35.0 - Nonrheumatic aortic (valve) stenosis Status: Acute Assessment and Plan: History of moderate aortic stenosis. 2D echocardiogram is pending (2) Chronic atrial fibrillation: Code(s): I48.20 - Chronic atrial fibrillation, unspecified Status: Acute Assessment and Plan: On anticoagulation heart rate is controlled. Continue metoprolol for rate control as long as blood pressure allows (3) Hypotension: Code(s): I95.9 - Hypotension, unspecified Status: Acute Assessment and Plan: stable . Will DC IV fluids now. (4) Nonspecific chest pain: Code(s): R07.9 - Chest pain, unspecified Status: Acute Assessment and Plan: chest pain is noncardiac. (5) Chronic anticoagulation: Code(s): Z79.01 - in process inspector (current) use of anticoagulants Status: Acute Assessment and Plan: On Eliquis Subjective Date/time seen: 08/25/20 12:24 Interval history: 84-year-old with chest pain, back pain Date of service 08/25/2020: Her symptoms are much better with pain medications. She states that her daughter was not giving her pain pills . No shortness of breath or chest pain at this point Review of Systems Review of Systems: All systems reviewed & are unremarkable except as noted in HPI and below Constitutional: Constitutional: Denies fatigue, Denies headache(s) and Reports weakness Eyes: Eyes: Denies blurry vision ENT: Reports Normal hearing present and Denies headache(s) Cardiovascular: Cardiovascular: Reports chest pain, Reports pedal edema, Reports leg edema and Reports dyspnea on exertion Respiratory: Respiratory: Reports dyspnea on exertion Gastrointestinal: Gastrointestinal: Denies abdominal pain and Reports melena Genitourinary: Genitourinary: Denies flank pain Musculoskeletal: Musculoskeletal: Reports back pain Integumentary/Breasts: Skin/Breast: Reports dry skin Neurologic: Reports Normal hearing present, Denies confusion, Denies headache(s) and Reports weakness Psychiatric: Psychiatric: Denies anxiety and Denies confusion Endocrine: Endocrine: Denies fatigue Hematologic/Lymphatic: Hematologic/Lymphatic: Denies easy bleeding Allergic/Immunologic: Allergic/Immunologic: Denies GI upset with certain foods Exam Narrative: Exam Narrative: Patient is awake alert. Appears to be in distress. Appears stated age Const: General: in distress and uncomfortable; No confusion Orientation/consciousness: No confusion HENMT: General nose exam: Normal nares present Eyes: Sclera: sclerae normal Neck: Neck: supple and no JVD Chest: Other: Patient has reproducible left sided chest pain as well as reproducible pain to palpate over her spine in her mid thorax Resp: Auscultation: diminished lung sounds Cardio: Rate: regular rate Rhythm: regular rhythm Heart sounds: Murmur heart sound present (2/6 systolic ejection murmur) Skin: General skin exam: normal color Neuro: General: No confusion Cranial nerves: Yes Normal hearing present Cognition (Neuro): normal cognition Speech: normal speech Extrem: General: edema (3+ bilateral lower extremity edema) Psych: Mental Status: mental status grossly normal Objective Data Vital Signs Vital Signs: Vital Signs - 24 hr 08/24/20 12:41 08/24/20 12:45 08/24/20 12:46 Temperature Pulse Rate 75 68 69 Respiratory Rate 21 H 20 18 Blood Pressure 90/53 L Pulse Oximetry 08/24/20 13:00 08/24/20 13:01 08/24/20 13:03 Temperature Pulse Rate 63 63 69 Respiratory Rate 17 16 17 Blood Pressure 88/34 L Pulse Oximetry 08/24/20 13:07 08/24/20 13:16 08/24/20 13:17 Temperature Pulse Rate 71 68 63 Respiratory Rate 17 16 16 Blood Pressure 87/58 L 78/56 L 80/60 L Pulse Oximetry 08/24/20 13:23 08/24/20 13:24 08/24/20 13:40 Temperature Pulse Rate 63 60 75 Respirat
[2020-08-25] MEDS: PANTOPRAZOLE 40 MG TABLET PO (12:58)
[2020-08-25] MEDS: rOPINIRole HCL 1 MG TABLET PO ×2 (12:58→18:09)
--- NOTE | 2020-08-25 14:41 | PM.IMPN ---
Progress Note: A&P Assessment and Plan (1) Chest pain: Code(s): R07.9 - Chest pain, unspecified Status: Acute Assessment and Plan: Pain is reproduced by palpation Cardiology has been consulted Echocardiogram has been reviewed Does not seem to be acute coronary syndrome (2) Localized swelling of both lower legs: Code(s): R22.43 - Localized swelling, mass and lump, lower limb, bilateral Status: Acute Assessment and Plan: Likely secondary to peripheral venous insufficiency Compression stockings (3) Essential (primary) hypertension: Code(s): I10 - Essential (primary) hypertension Status: Acute Assessment and Plan: Continue home meds (4) Osteoporosis without current pathological fracture: Qualifiers: Osteoporosis type: unspecified Qualified Code(s): M81.0 - Age-related osteoporosis without current pathological fracture Code(s): M81.0 - Age-related osteoporosis without current pathological fracture Status: Acute Assessment and Plan: CT of cervical and thoracic spine with no acute fractures On alendronate (5) Osteoarthritis: Qualifiers: Osteoarthritis location: unspecified site Osteoarthritis type: unspecified Qualified Code(s): M19.90 - Unspecified osteoarthritis, unspecified site Code(s): M19.90 - Unspecified osteoarthritis, unspecified site Status: Acute Assessment and Plan: Continue tramadol (6) Hypothyroidism (acquired): Code(s): E03.9 - Hypothyroidism, unspecified Status: Acute Assessment and Plan: Continue levothyroxine Stable (7) Chronic diastolic heart failure: Code(s): I50.32 - Chronic diastolic (congestive) heart failure Status: Acute Assessment and Plan: Appears to be compensated Will obtain a brain natriuretic peptide Echocardiogram has been reviewed (8) Chronic atrial fibrillation: Code(s): I48.20 - Chronic atrial fibrillation, unspecified Status: Acute Assessment and Plan: Anticoagulant Rate controlled (9) Aortic stenosis, moderate: Code(s): I35.0 - Nonrheumatic aortic (valve) stenosis Status: Acute Assessment and Plan: Severe aortic stenosis Continue to monitor (10) Nonspecific chest pain: Code(s): R07.9 - Chest pain, unspecified Status: Acute Assessment and Plan: Doubtful of acute coronary syndrome Reproducible on physical exam with palpation Subjective Date/time seen: 08/25/20 14:41 I FEEL FINE Review of Systems Review of Systems: Narrative: Patient has been in her usual state of health she was brought to the hospital after she had muscle spasm and sharp chest pain Constitutional: Comments: No fevers no rigors no chills ENT: Comments: No nasal congestion, no ear ache,no throat pain Cardiovascular: Comments: Sharp chest pain Respiratory: Comments: No cough no shortness of breath no sputum present Gastrointestinal: Comments: No nausea no vomiting no diarrhea no abdominal pain Musculoskeletal: Comments: Back spasm Integumentary/Breasts: Comments: No rashes Neurologic: Comments: Patient has bilateral carpal tunnel decreased sensation in fingers i,ii,iii bilateraly Exam Narrative: Exam Narrative: Sitting in chair Const: General: comfortable, no acute distress, well developed, alert and awake Nutritional Appearance: overweight Orientation/consciousness: patient oriented x3 HENMT: Head: normal to inspection, normocephalic and atraumatic Ears: hearing grossly normal bilaterally Face and sinus: normal facial exam Eyes: General: appearance normal, both eyes and all related structures Pupils: Equal, round and reactive pupils present EOM: EOMs intact bilaterally Neck: Neck: full ROM, no lymphadenopathy and no JVD Thyroid: thyroid normal Lymphatic: no lymphadenopathy noted Resp: Effort & Inspection: normal respiratory effort and able to speak in complete sent
[2020-08-25] MEDS: HYDROcodone/acetaminophen (*CRX) 10-325 MG TABLET 1 TAB PO ×2 (18:02→22:02)
[2020-08-25] MEDS: APIXABAN 5 MG TABLET PO (18:10)
[2020-08-25] MEDS: MAGNESIUM OXIDE 400 MG TABLET 800 MG PO (18:10)
--- NOTE | 2020-08-25 21:27 | PC.NURSE ---
This patient, Radha Knox, was transferred to [ ] on 08/25/20 at 2128. Personal belongings sent with patient. Report given to [3rd ]. Appropriate documentation sent with patient.
[2020-08-25] MEDS: ZOLPIDEM TARTRATE (*CRX) 5 MG TABLET 10 MG PO (22:02)
[2020-08-26] MEDS: HYDROcodone/acetaminophen (*CRX) 10-325 MG TABLET 1 TAB PO (02:14)
[2020-08-26 05:46] VITALS: BP 94/72; PULSE 84; RESP 20; TEMP 36.7; O2SAT 95
[2020-08-26] MEDS: LEVOTHYROXINE SODIUM 100 MCG TABLET PO (06:51)
[2020-08-26] MEDS: APIXABAN 5 MG TABLET PO ×2 (08:30→16:36)
[2020-08-26 08:31] VITALS: PULSE 68
[2020-08-26] MEDS: MAGNESIUM OXIDE 400 MG TABLET 800 MG PO ×2 (08:31→16:36)
[2020-08-26] MEDS: BUMETANIDE 0.5 MG TABLET 1.5 MG PO (08:31)
[2020-08-26] MEDS: lisinopriL 10 MG TABLET PO (08:31)
[2020-08-26] MEDS: METOPROLOL SUCCINATE EXT REL 100 MG TABCR PO (08:31)
[2020-08-26] MEDS: TIZANIDINE HCL 2 MG TABLET BY MOUTH (08:33)
[2020-08-26] MEDS: POTASSIUM CHLORIDE 10 MEQ TABLET.ER 20 MEQ PO (08:33)
[2020-08-26] MEDS: PANTOPRAZOLE 40 MG TABLET PO (08:33)
[2020-08-26] MEDS: rOPINIRole HCL 1 MG TABLET PO ×3 (08:33→16:36)
--- NOTE | 2020-08-26 13:23 | PM.PNCARD ---
Progress Note: A&P Assessment and Plan (1) Aortic stenosis, moderate: Code(s): I35.0 - Nonrheumatic aortic (valve) stenosis Status: Acute Assessment and Plan: Now severe aortic stenosis. Gentle diuresis. Will give 20 mg IV furosemide x1 (2) Chronic atrial fibrillation: Code(s): I48.20 - Chronic atrial fibrillation, unspecified Status: Acute Assessment and Plan: On anticoagulation heart rate is controlled. Continue metoprolol for rate control as long as blood pressure allows (3) Hypotension: Code(s): I95.9 - Hypotension, unspecified Status: Acute Assessment and Plan: stable . (4) Nonspecific chest pain: Code(s): R07.9 - Chest pain, unspecified Status: Acute Assessment and Plan: chest pain is noncardiac. (5) Chronic anticoagulation: Code(s): Z79.01 - USP (current) use of anticoagulants Status: Acute Assessment and Plan: On Eliquis Subjective Date/time seen: 08/26/20 13:23 Interval history: 84-year-old with chest pain, back pain Date of service 08/25/2020: Her symptoms are much better with pain medications. She states that her daughter was not giving her pain pills . No shortness of breath or chest pain at this point Date of service 08/26/2020: She is still somnolent. She has less pain though. Swelling is still present but a little better. No shortness of breath. Review of Systems Review of Systems: All systems reviewed & are unremarkable except as noted in HPI and below Constitutional: Constitutional: Denies fatigue, Denies headache(s) and Reports weakness Eyes: Eyes: Denies blurry vision ENT: Reports Normal hearing present and Denies headache(s) Cardiovascular: Cardiovascular: Reports chest pain, Reports pedal edema, Reports leg edema and Reports dyspnea on exertion Respiratory: Respiratory: Reports dyspnea on exertion Gastrointestinal: Gastrointestinal: Denies abdominal pain and Reports melena Genitourinary: Genitourinary: Denies flank pain Musculoskeletal: Musculoskeletal: Reports back pain Integumentary/Breasts: Skin/Breast: Reports dry skin Neurologic: Reports Normal hearing present, Denies confusion, Denies headache(s) and Reports weakness Psychiatric: Psychiatric: Denies anxiety and Denies confusion Endocrine: Endocrine: Denies fatigue Hematologic/Lymphatic: Hematologic/Lymphatic: Denies easy bleeding Allergic/Immunologic: Allergic/Immunologic: Denies GI upset with certain foods Exam Narrative: Exam Narrative: Patient is awake alert. Appears to be in distress. Appears stated age Const: General: in distress and uncomfortable; No confusion Orientation/consciousness: No confusion HENMT: General nose exam: Normal nares present Eyes: Sclera: sclerae normal Neck: Neck: supple and no JVD Chest: Other: Patient has reproducible left sided chest pain as well as reproducible pain to palpate over her spine in her mid thorax Resp: Auscultation: diminished lung sounds Cardio: Rate: regular rate Rhythm: regular rhythm Heart sounds: Murmur heart sound present (2/6 systolic ejection murmur) Skin: General skin exam: normal color Neuro: General: No confusion Cranial nerves: Yes Normal hearing present Cognition (Neuro): normal cognition Speech: normal speech Extrem: General: edema (3+ bilateral lower extremity edema) Psych: Mental Status: mental status grossly normal Objective Data Vital Signs Vital Signs: Vital Signs - 24 hr 08/25/20 16:00 08/25/20 20:16 08/25/20 22:05 Temperature 35.9 C L 36.6 C 36.4 C Pulse Rate 82 79 82 Respiratory Rate 17 16 18 Blood Pressure 113/72 122/68 104/60 Pulse Oximetry 94 96 97 08/26/20 05:46 08/26/20 08:31 Temperature 36.7 C Pulse Rate 84 68 Respiratory Rate 20 Blood Pressure 94/72 L Pulse Oximetry 95 Intake/Output Intake/Output: Intake & Output 08/23/20 08/24/20 08/25/20 08/26/20 23:59 23:59 23:59
[2020-08-26 14:00] VITALS: BP 95/46; PULSE 62; RESP 20; TEMP 36.3; O2SAT 97
[2020-08-26] MEDS: FUROSEMIDE INJ 40 MG/4 ML VIAL 20 MG IV PUSH (14:19)
--- NOTE | 2020-08-26 16:30 | PM.IMPN ---
Progress Note: A&P Assessment and Plan (1) Chest pain: Code(s): R07.9 - Chest pain, unspecified Status: Acute Assessment and Plan: patient denied any chest pain stated that it was her back hurting doubt acute coronary syndrome continue to monitor (2) Essential (primary) hypertension: Code(s): I10 - Essential (primary) hypertension Status: Acute Assessment and Plan: continue home meds continue to monitor (3) RLS (restless legs syndrome): Code(s): G25.81 - Restless legs syndrome Status: Acute Assessment and Plan: continue her ropinirole (4) Hypothyroidism (acquired): Code(s): E03.9 - Hypothyroidism, unspecified Status: Acute Assessment and Plan: continue levothyroxine continue to monitor (5) Chronic low back pain without sciatica: Qualifiers: Back pain laterality: unspecified Qualified Code(s): M54.5 - Low back pain; G89.29 - Other chronic pain Code(s): M54.5 - Low back pain; G89.29 - Other chronic pain Status: Acute Assessment and Plan: continue pain management caution with overly sedating patient (6) Chronic diastolic heart failure: Code(s): I50.32 - Chronic diastolic (congestive) heart failure Status: Acute Assessment and Plan: gentle diuresis appreciate cardiology Note (7) Chronic atrial fibrillation: Code(s): I48.20 - Chronic atrial fibrillation, unspecified Status: Acute Assessment and Plan: rate control anticoagulated (8) CKD (chronic kidney disease) stage 3, GFR 30-59 ml/min: Code(s): N18.3 - Chronic kidney disease, stage 3 (moderate) Status: Acute Assessment and Plan: continue to monitor (9) Aortic stenosis, moderate: Code(s): I35.0 - Nonrheumatic aortic (valve) stenosis Status: Acute Assessment and Plan: on beta-blockade continue to monitor (10) Localized swelling of both lower legs: Code(s): R22.43 - Localized swelling, mass and lump, lower limb, bilateral Status: Acute Assessment and Plan: likely component of peripheral vascular venous insufficiency compression stockings Subjective Date/time seen: 08/26/20 16:30 I'm getting very sleepy Review of Systems Review of Systems: Narrative: patient states that she is getting very sleepy due to her pain medication Exam Narrative: Exam Narrative: patient is sitting in bed Const: General: comfortable, no acute distress, well developed, alert, awake and other ( drowsy) Nutritional Appearance: overweight Orientation/consciousness: patient oriented x3 HENMT: Head: normal to inspection, normocephalic and atraumatic Ears: hearing grossly normal bilaterally Face and sinus: normal facial exam Eyes: General: appearance normal, both eyes and all related structures Pupils: Equal, round and reactive pupils present EOM: EOMs intact bilaterally Neck: Neck: full ROM, no lymphadenopathy and no JVD Thyroid: thyroid normal Lymphatic: no lymphadenopathy noted Resp: Effort & Inspection: normal respiratory effort and able to speak in complete sentences Auscultation: clear to auscultation bilaterally Cardio: Jugular venous distension: no JVD Rate: regular rate Rhythm: regular rhythm Heart sounds: S1 normal heart sound present and S2 normal heart sound present GI: GI Palp: Yes Soft to palpation and Yes No hepatosplenomegaly present : General: Yes deferred Skin: Rashes: no rashes Wounds: no wounds Neuro: General: patient oriented x3 and CN's II-XI intact bilaterally Cranial nerves: Yes CN's II-XII intact bilaterally and Yes Equal, round and reactive pupils present Cognition (Neuro): normal cognition Speech: normal speech Gait exam (Neuro): Normal gait present Motor exam (neuro): 5/5 motor strength present throughout Extrem: General: normal to inspection, full ROM, no joint enlargement and no pedal edema Objective D
[2020-08-26] MEDS: traMADol/ACETAMINOPHEN (*CRX) (ULTRACET) 37.5/325 MG TABLET 1 TAB PO (16:35)
[2020-08-26] MEDS: ZOLPIDEM TARTRATE (*CRX) 5 MG TABLET 10 MG PO (20:54)
[2020-08-26] MEDS: ACETAMINOPHEN 325 MG TABLET 650 MG PO (20:54)
[2020-08-26 21:51] VITALS: BP 106/58; PULSE 86; RESP 20; TEMP 36.2; O2SAT 91
[2020-08-27] MEDS: traMADol/ACETAMINOPHEN (*CRX) (ULTRACET) 37.5/325 MG TABLET 1 TAB PO ×2 (01:05→09:33)
[2020-08-27 05:47] VITALS: BP 100/49; PULSE 60; RESP 20; TEMP 36.4; O2SAT 96
[2020-08-27] MEDS: LEVOTHYROXINE SODIUM 100 MCG TABLET PO (05:51)
[2020-08-27] MEDS: ACETAMINOPHEN 325 MG TABLET 650 MG PO (06:15)
[2020-08-27 06:41] LABS: Potassium 4.8 mmol/L (3.4-5.0)
[2020-08-27 09:13] VITALS: PULSE 61
[2020-08-27] MEDS: APIXABAN 5 MG TABLET PO ×2 (09:16→16:54)
[2020-08-27] MEDS: MAGNESIUM OXIDE 400 MG TABLET 800 MG PO ×2 (09:16→16:54)
[2020-08-27] MEDS: PANTOPRAZOLE 40 MG TABLET PO (09:16)
[2020-08-27] MEDS: rOPINIRole HCL 1 MG TABLET PO ×3 (09:16→16:54)
[2020-08-27] MEDS: TIZANIDINE HCL 2 MG TABLET BY MOUTH (09:17)
[2020-08-27] MEDS: POTASSIUM CHLORIDE 10 MEQ TABLET.ER 20 MEQ PO (09:17)
[2020-08-27] MEDS: BUMETANIDE 1 MG TABLET PO (09:18)
[2020-08-27 09:27] LABS: Basophils Percent Auto 0.9 % (0.2-1.2); Eosinophils Absolute Auto 0.2 K/mm3 (0-0.3); Eosinophils Percent Auto 3.3 % (0-4.4); Hemoglobin 11.6 g/dL (12.0-15.0); Immature Granulocyte Absolute 0.02 K/mm3 (0.00-0.031); Immature Granulocyte Percent A 0.4 % (0-0.5); Immature Platelet Fraction Pct 6.7 % (0.9-11.2); Lymphocytes Absolute Auto 1.33 K/mm3 (0.9-3.2); Lymphocytes Percent Auto 29.3 % (18.3-44.2); Mean Corpuscular HGB Conc 33.1 g/dl (32-36); Mean Corpuscular Hemoglobin 35.4 pg (26-34); Mean Corpuscular Volume 106.7 fl (80-100); Mean Platelet Volume 11.3 fl (7.4-10.4); Monocytes Absolute Auto 1.1 K/mm3 (0.1-0.6); Monocytes Percent Auto 23.3 % (2.6-8.5); Neutrophils Absolute Auto 1.9 K/mm3 (1.3-6.7); Neutrophils Percent Auto 42.8 % (45.5-73.1); Nucleated Red Blood Cells Absolute Auto 0.1 K/mm3 (0.0-0.012); Nucleated Red Blood Cells Perc 2.6 % (0.0-0.2); Platelet Count Result 96 k/mm3 (150-375); Red Blood Count 3.28 M/mm3 (4.2-5.4); Red Cell Distribution Width 17.9 % (11.5-14.5); White Blood Count 4.5 K/mm3 (4.5-10.0)
[2020-08-27 09:41] LABS: Anion Gap 5 mmol/L (8-16); Blood Urea Nitrogen 46 mg/dL (7-17); Calcium 9.4 mg/dL (8.4-10.2); Carbon Dioxide 29 mmol/L (22-30); Chloride 97 mmol/L (98-107); Estimated Glomerular Filt Rate 36; Glucose 79 mg/dL (65-105); Potassium 4.9 mmol/L (3.4-5.0); Sodium 131 mmol/L (137-145)
--- NOTE | 2020-08-27 11:15 | PM.PNCARD ---
Progress Note: A&P Assessment and Plan (1) Aortic stenosis, moderate: Code(s): I35.0 - Nonrheumatic aortic (valve) stenosis Status: Acute Assessment and Plan: Now severe aortic stenosis. Gentle diuresis. Furosemide 20 mg IV x1 (2) Chronic atrial fibrillation: Code(s): I48.20 - Chronic atrial fibrillation, unspecified Status: Acute Assessment and Plan: On anticoagulation heart rate is controlled. Continue metoprolol for rate control as long as blood pressure allows (3) Hypotension: Code(s): I95.9 - Hypotension, unspecified Status: Acute Assessment and Plan: stable . (4) Nonspecific chest pain: Code(s): R07.9 - Chest pain, unspecified Status: Acute Assessment and Plan: chest pain is noncardiac. (5) Chronic anticoagulation: Code(s): Z79.01 - rat exterminator (current) use of anticoagulants Status: Acute Assessment and Plan: On [employer] DC planning Subjective Date/time seen: 08/27/20 11:15 Interval history: 84-year-old with chest pain, back pain Date of service 08/25/2020: Her symptoms are much better with pain medications. She states that her daughter was not giving her pain pills . No shortness of breath or chest pain at this point Date of service 08/26/2020: She is still somnolent. She has less pain though. Swelling is still present but a little better. No shortness of breath. Date of service 08/27/2020: She is working with therapy. Denies any chest pain, back pain, shortness of breath. Still has swelling but seems a little better than yesterday. Review of Systems Review of Systems: All systems reviewed & are unremarkable except as noted in HPI and below Constitutional: Constitutional: Denies fatigue, Denies headache(s) and Reports weakness Eyes: Eyes: Denies blurry vision ENT: Reports Normal hearing present and Denies headache(s) Cardiovascular: Cardiovascular: Reports chest pain, Reports pedal edema, Reports leg edema and Reports dyspnea on exertion Respiratory: Respiratory: Reports dyspnea on exertion Gastrointestinal: Gastrointestinal: Denies abdominal pain and Reports melena Genitourinary: Genitourinary: Denies flank pain Musculoskeletal: Musculoskeletal: Reports back pain Integumentary/Breasts: Skin/Breast: Reports dry skin Neurologic: Reports Normal hearing present, Denies confusion, Denies headache(s) and Reports weakness Psychiatric: Psychiatric: Denies anxiety and Denies confusion Endocrine: Endocrine: Denies fatigue Hematologic/Lymphatic: Hematologic/Lymphatic: Denies easy bleeding Allergic/Immunologic: Allergic/Immunologic: Denies GI upset with certain foods Exam Narrative: Exam Narrative: Patient is awake alert. Appears to be in distress. Appears stated age Const: General: in distress and uncomfortable; No confusion Orientation/consciousness: No confusion HENMT: General nose exam: Normal nares present Eyes: Sclera: sclerae normal Neck: Neck: supple and no JVD Chest: Other: Patient has reproducible left sided chest pain as well as reproducible pain to palpate over her spine in her mid thorax Resp: Auscultation: diminished lung sounds Cardio: Rate: regular rate Rhythm: regular rhythm Heart sounds: Murmur heart sound present (2/6 systolic ejection murmur) Skin: General skin exam: normal color Neuro: General: No confusion Cranial nerves: Yes Normal hearing present Cognition (Neuro): normal cognition Speech: normal speech Extrem: General: edema (3+ bilateral lower extremity edema) Psych: Mental Status: mental status grossly normal Objective Data Vital Signs Vital Signs: Vital Signs - 24 hr 08/26/20 14:00 08/26/20 21:51 08/27/20 05:47 Temperature 36.3 C L 36.2 C L 36.4 C L Pulse Rate 62 86 60 Respiratory Rate 20 20 20 Blood Pressure 95/46 L 106/58 L 100/49 L Pulse Oximetry 97 91 96 08/27/20 09:13 Temperature Pulse Rate 61 Respiratory Ra
[2020-08-27] MEDS: FUROSEMIDE INJ 40 MG/4 ML VIAL 20 MG IV PUSH (12:08)
[2020-08-27] MEDS: SODIUM CHLORIDE 0.9% IV 500 ML 999 ML IV CONT (13:36)
[2020-08-27 14:00] VITALS: BP 83/39; PULSE 55; RESP 18; TEMP 36.9; O2SAT 96
[2020-08-27 17:55] VITALS: BP 97/35
--- NOTE | 2020-08-27 18:01 | PM.IMPN ---
Progress Note: A&P Assessment and Plan (1) Hypotension: Code(s): I95.9 - Hypotension, unspecified Status: Acute Assessment and Plan: patient received a bolus of NS blood pressure is better continue to monitor (2) Edema: Code(s): R60.9 - Edema, unspecified Status: Acute Assessment and Plan: will do Lucian wraps to bilateral lower extremities (3) Essential (primary) hypertension: Code(s): I10 - Essential (primary) hypertension Status: Acute Assessment and Plan: holding BP meds due to low blood pressure (4) RLS (restless legs syndrome): Code(s): G25.81 - Restless legs syndrome Status: Acute Assessment and Plan: continue ropinirole (5) Chronic low back pain without sciatica: Qualifiers: Back pain laterality: unspecified Qualified Code(s): M54.5 - Low back pain; G89.29 - Other chronic pain Code(s): M54.5 - Low back pain; G89.29 - Other chronic pain Status: Acute Assessment and Plan: continue tramadol caution with over-sedation and hypotension (6) Chronic diastolic heart failure: Code(s): I50.32 - Chronic diastolic (congestive) heart failure Status: Acute Assessment and Plan: stable continue to monitor on beta blockade (7) Chronic atrial fibrillation: Code(s): I48.20 - Chronic atrial fibrillation, unspecified Status: Acute Assessment and Plan: on beta-blockade anticoagulated (8) UTI (urinary tract infection): Code(s): N39.0 - Urinary tract infection, site not specified Status: Acute Assessment and Plan: continue Rocephin urinalysis culture growing E coli sensitive to Rocephin Subjective Date/time seen: 08/27/20 18:01 I feel fine Review of Systems Review of Systems: Narrative: the patient denies any issues at this time Exam Narrative: Exam Narrative: patient is sitting in bed eating dinner Const: General: comfortable, no acute distress, well developed, alert and awake Nutritional Appearance: average body habitus Orientation/consciousness: patient oriented x3 HENMT: Head: normal to inspection, normocephalic and atraumatic Ears: hearing grossly normal bilaterally Face and sinus: normal facial exam Eyes: General: appearance normal, both eyes and all related structures Pupils: Equal, round and reactive pupils present EOM: EOMs intact bilaterally Neck: Neck: full ROM, no lymphadenopathy and no JVD Thyroid: thyroid normal Lymphatic: no lymphadenopathy noted Resp: Effort & Inspection: normal respiratory effort and able to speak in complete sentences Auscultation: clear to auscultation bilaterally Cardio: Jugular venous distension: no JVD Rate: regular rate Rhythm: regular rhythm Heart sounds: S1 normal heart sound present and S2 normal heart sound present GI: GI Palp: Yes Soft to palpation and Yes No hepatosplenomegaly present : General: Yes deferred Skin: Rashes: no rashes Wounds: no wounds Neuro: General: patient oriented x3 and CN's II-XI intact bilaterally Cranial nerves: Yes CN's II-XII intact bilaterally and Yes Equal, round and reactive pupils present Cognition (Neuro): normal cognition Speech: normal speech Gait exam (Neuro): Normal gait present Motor exam (neuro): 5/5 motor strength present throughout Extrem: General: normal to inspection, full ROM, no joint enlargement and pedal edema bilaterally 3+ Objective Data Vital Signs Vital Signs: Vital Signs - 24 hr 08/26/20 21:51 08/27/20 05:47 08/27/20 09:13 Temperature 97.2 F L 97.5 F L Pulse Rate 86 60 61 Respiratory Rate 20 20 Blood Pressure 106/58 L 100/49 L Pulse Oximetry 91 96 08/27/20 14:00 08/27/20 17:55 Temperature 98.4 F Pulse Rate 55 L Respiratory Rate 18 Blood Pressure 83/39 L 97/35 L Pulse Oximetry 96 Intake/Output Intake/Output: Intake & Output 08/24/20 08/25/20 08/26/20 08/27/20 23:59 23:59 23:59 23:59 I
[2020-08-27] MEDS: chlordiazePOXIDE (*CRX) 10 MG CAPSULE PO (18:36)
[2020-08-27 20:30] VITALS: PULSE 77; RESP 18; O2SAT 98
[2020-08-27] MEDS: ZOLPIDEM TARTRATE (*CRX) 5 MG TABLET 10 MG PO (21:51)
[2020-08-27 22:00] VITALS: BP 128/60; PULSE 77; RESP 18; TEMP 35.8; O2SAT 98
[2020-08-28] MEDS: HYDROcodone/acetaminophen (*CRX) 10-325 MG TABLET 1 TAB PO ×2 (02:05→23:53)
[2020-08-28 06:00] VITALS: BP 92/46; PULSE 80; RESP 18; TEMP 35.9; O2SAT 98
[2020-08-28] MEDS: LEVOTHYROXINE SODIUM 100 MCG TABLET PO (06:34)
[2020-08-28 06:49] VITALS: BP 115/62
[2020-08-28] MEDS: traMADol/ACETAMINOPHEN (*CRX) (ULTRACET) 37.5/325 MG TABLET 1 TAB PO ×2 (06:52→16:50)
[2020-08-28 08:00] VITALS: PULSE 80; RESP 18; O2SAT 98
[2020-08-28] MEDS: APIXABAN 5 MG TABLET PO ×2 (09:19→16:53)
[2020-08-28] MEDS: MAGNESIUM OXIDE 400 MG TABLET 800 MG PO ×2 (09:19→16:53)
[2020-08-28] MEDS: rOPINIRole HCL 1 MG TABLET PO ×3 (09:19→16:53)
[2020-08-28] MEDS: lisinopriL 10 MG TABLET PO (09:19)
[2020-08-28] MEDS: BUMETANIDE 0.5 MG TABLET 1.5 MG PO (09:19)
[2020-08-28] MEDS: TIZANIDINE HCL 2 MG TABLET BY MOUTH (09:20)
[2020-08-28] MEDS: PANTOPRAZOLE 40 MG TABLET PO (09:20)
[2020-08-28] MEDS: POTASSIUM CHLORIDE 10 MEQ TABLET.ER 20 MEQ PO (09:20)
--- NOTE | 2020-08-28 13:33 | PM.PNCARD ---
Progress Note: A&P Additional Plan 84-year-old lady presenting with noncardiac chest pain. She does have critical aortic valve stenosis for which she has declined to consider aggressive treatment in the way of either surgical or catheter based aortic valve replacement. As stated when Dr. Olivera is notes her chief complaint that brought her into the hospital is not really related to her valve disease and at this point I do not see any further need for cardiac follow-up during this hospitalization. I will see that Dr. Keller has follow-up with her in the office whenever she is discharged. Disposition is per the primary team. Daquan Valderrama MD [facility] Subjective Date/time seen: Date of service: 08/28/20 13:33 Interval history: 84-year-old with chest pain, back pain Date of service 08/25/2020: Her symptoms are much better with pain medications. She states that her daughter was not giving her pain pills . No shortness of breath or chest pain at this point Date of service 08/26/2020: She is still somnolent. She has less pain though. Swelling is still present but a little better. No shortness of breath. Date of service 08/27/2020: She is working with therapy. Denies any chest pain, back pain, shortness of breath. Still has swelling but seems a little better than yesterday. Date of service 08/28/2020: Patient is very somnolent appears to have been sedated or treated with analgesics. Upon awakening offers no cardiovascular symptoms. The patient states that she and Dr. Katz have discussed her aortic valve disease in the past and she has elected not to pursue any treatment of this because of her advanced age and frail condition. Exam Narrative: Exam Narrative: Patient is awake alert. Appears to be in distress. Appears stated age Const: General: in distress and uncomfortable; No confusion Orientation/consciousness: No confusion HENMT: General nose exam: Normal nares present Eyes: Sclera: sclerae normal Neck: Neck: supple and no JVD Chest: Other: Patient has reproducible left sided chest pain as well as reproducible pain to palpate over her spine in her mid thorax Resp: Auscultation: diminished lung sounds Cardio: Rate: regular rate Rhythm: regular rhythm Heart sounds: Murmur heart sound present (2/6 systolic ejection murmur) Skin: General skin exam: normal color Neuro: General: No confusion Cranial nerves: Yes Normal hearing present Cognition (Neuro): normal cognition Speech: normal speech Extrem: General: edema (3+ bilateral lower extremity edema) Psych: Mental Status: mental status grossly normal Objective Data Vital Signs Vital Signs: Vital Signs - 24 hr 08/27/20 14:00 08/27/20 17:55 08/27/20 20:30 Temperature 36.9 C Pulse Rate 55 L 77 Respiratory Rate 18 18 Blood Pressure 83/39 L 97/35 L Pulse Oximetry 96 98 08/27/20 22:00 08/28/20 06:00 08/28/20 06:49 Temperature 35.8 C L 35.9 C L Pulse Rate 77 80 Respiratory Rate 18 18 Blood Pressure 128/60 92/46 L 115/62 Pulse Oximetry 98 98 08/28/20 08:00 Temperature Pulse Rate 80 Respiratory Rate 18 Blood Pressure Pulse Oximetry 98 Intake/Output Intake/Output: Intake & Output 08/25/20 08/26/20 08/27/20 08/28/20 23:59 23:59 23:59 23:59 Intake Total 0326 675 1887 240 Output Total 3921 695 6374 1000 Balance 650 -185 60 -760 Meds/Results Medications: Active Medications Generic Name Dose Route Start Last Admin Trade Name Freq PRN Reason Stop Dose Admin Acetaminophen 650 mg 08/24/20 14:20 08/27/20 06:15 Acetaminophen 325 Mg Tablet PO 650 mg Q4H PRN Administration Mild Pain (1-3) or Fever Hydrocodone Bitart/Acetaminophen 1 tab 08/25/20 17:18 08/28/20 02:05 Hydrocodone/Acetaminophen (*Crx) 10-325 Mg Tablet PO 1 tab Q4H PRN Administration Pain Rated 7-10 Apixaban 5 mg 08/25/20 17:00 08/28/20 09:19 Apixaban 5 Mg Tablet PO 5 mg BID SYBIL Administration Bumetanide 1
--- NOTE | 2020-08-28 13:45 | PM.IMPN ---
Progress Note: A&P Assessment and Plan (1) UTI (urinary tract infection): Code(s): N39.0 - Urinary tract infection, site not specified Status: Acute Assessment and Plan: currently on ceftriaxone urine culture growing E coli sensitive to it supportive care continue to monitor (2) Essential (primary) hypertension: Code(s): I10 - Essential (primary) hypertension Status: Acute Assessment and Plan: patient with episode of hypotension currently holding BP meds continue to monitor (3) RLS (restless legs syndrome): Code(s): G25.81 - Restless legs syndrome Status: Acute Assessment and Plan: continue ropinirole (4) Hypothyroidism (acquired): Code(s): E03.9 - Hypothyroidism, unspecified Status: Acute Assessment and Plan: continue levothyroxine (5) Chronic low back pain without sciatica: Qualifiers: Back pain laterality: unspecified Qualified Code(s): M54.5 - Low back pain; G89.29 - Other chronic pain Code(s): M54.5 - Low back pain; G89.29 - Other chronic pain Status: Acute Assessment and Plan: Tylenol p.r.n. (6) Chronic atrial fibrillation: Code(s): I48.20 - Chronic atrial fibrillation, unspecified Status: Acute Assessment and Plan: rate control anticoagulated (7) CKD (chronic kidney disease) stage 3, GFR 30-59 ml/min: Code(s): N18.3 - Chronic kidney disease, stage 3 (moderate) Status: Acute Assessment and Plan: continue to monitor (8) Aortic stenosis, moderate: Code(s): I35.0 - Nonrheumatic aortic (valve) stenosis Status: Acute Assessment and Plan: stable continue to monitor (9) Localized swelling of both lower legs: Code(s): R22.43 - Localized swelling, mass and lump, lower limb, bilateral Status: Acute Assessment and Plan: status post Lucian wrap bilateral (10) CHF (congestive heart failure): Code(s): I50.9 - Heart failure, unspecified Status: Acute Assessment and Plan: appears to be compensated use Lasix as needed caution with diuretics Subjective Date/time seen: 08/28/20 13:45 I feel much better Review of Systems Review of Systems: Narrative: denies any complaints at this time Constitutional: Comments: no rigors no chills no fevers Cardiovascular: Comments: no chest pain no PND no orthopnea Respiratory: Comments: no shortness of breath no cough no sputum production Gastrointestinal: Comments: no nausea no vomiting no diarrhea Genitourinary: Comments: no pain or burning with urination Musculoskeletal: Comments: pedal edema Integumentary/Breasts: Comments: no rashes Neurologic: Comments: no sensorimotor deficit Exam Narrative: Exam Narrative: patient is sitting in bed eating breakfast Const: General: comfortable, no acute distress, well developed, alert and awake Nutritional Appearance: average body habitus Orientation/consciousness: patient oriented x3 HENMT: Head: normal to inspection, normocephalic and atraumatic Ears: hearing grossly normal bilaterally Face and sinus: normal facial exam Eyes: General: appearance normal, both eyes and all related structures Pupils: Equal, round and reactive pupils present EOM: EOMs intact bilaterally Neck: Neck: full ROM, no lymphadenopathy and no JVD Thyroid: thyroid normal Lymphatic: no lymphadenopathy noted Resp: Effort & Inspection: normal respiratory effort and able to speak in complete sentences Auscultation: clear to auscultation bilaterally Cardio: Jugular venous distension: no JVD Rate: regular rate Rhythm: regular rhythm Heart sounds: S1 normal heart sound present and S2 normal heart sound present GI: GI Palp: Yes Soft to palpation and Yes No hepatosplenomegaly present : General: Yes deferred Skin: Rashes: no rashes Wounds: no wounds Neuro: General: patient oriented x3 and CN's II-XI intact bi
[2020-08-28 14:00] VITALS: BP 92/56; PULSE 73; RESP 20; TEMP 36.3; O2SAT 98
[2020-08-28 20:00] VITALS: PULSE 68; RESP 20; O2SAT 100
[2020-08-28] MEDS: ZOLPIDEM TARTRATE (*CRX) 5 MG TABLET 10 MG PO (20:37)
[2020-08-28 22:00] VITALS: BP 108/68; PULSE 68; RESP 20; TEMP 35.8; O2SAT 100
[2020-08-28] MEDS: BISACODYL 5 MG TABLET EC PO (22:50)
[2020-08-29] MEDS: LEVOTHYROXINE SODIUM 100 MCG TABLET PO (05:44)
[2020-08-29] MEDS: traMADol/ACETAMINOPHEN (*CRX) (ULTRACET) 37.5/325 MG TABLET 1 TAB PO ×2 (05:51→14:28)
[2020-08-29 06:00] VITALS: BP 101/59; PULSE 84; RESP 18; TEMP 36.3; O2SAT 96
[2020-08-29 06:18] LABS: Potassium 4.9 mmol/L (3.4-5.0)
[2020-08-29] MEDS: lisinopriL 10 MG TABLET PO (09:04)
[2020-08-29] MEDS: POTASSIUM CHLORIDE 10 MEQ TABLET.ER 20 MEQ PO (09:04)
[2020-08-29] MEDS: APIXABAN 5 MG TABLET PO (09:04)
[2020-08-29] MEDS: TIZANIDINE HCL 2 MG TABLET BY MOUTH (09:04)
[2020-08-29] MEDS: rOPINIRole HCL 1 MG TABLET PO ×2 (09:04→14:27)
[2020-08-29] MEDS: BUMETANIDE 1 MG TABLET PO (09:04)
[2020-08-29] MEDS: PANTOPRAZOLE 40 MG TABLET PO (09:04)
[2020-08-29 09:05] VITALS: PULSE 92
[2020-08-29] MEDS: METOPROLOL SUCCINATE EXT REL 100 MG TABCR PO (09:05)
[2020-08-29] MEDS: MAGNESIUM OXIDE 400 MG TABLET 800 MG PO (09:05)
[2020-08-29] MEDS: ALENDRONATE SODIUM 70 MG TABLET PO (11:43)
--- NOTE | 2020-08-29 11:53 | PM.DS ---
DS: Admitting Diagnosis Admitting Diagnosis Admitting Diagnosis: (1) Chest pain: (2) CHF (congestive heart failure): (3) Edema: (4) Essential (primary) hypertension: (5) Hypothyroidism (acquired): (6) Aortic stenosis, moderate: (7) CKD (chronic kidney disease) stage 3, GFR 30-59 ml/min: (8) Chronic atrial fibrillation: (9) Chronic diastolic heart failure: (10) Anxiety: DS: Discharge Diagnosis Discharge Diagnosis (1) UTI (urinary tract infection): Code(s): N39.0 - Urinary tract infection, site not specified Status: Acute Assessment and Plan: pansensitive will complete 4 days of ciprofloxacin (2) Chronic anticoagulation: Code(s): Z79.01 - FPC (current) use of anticoagulants Status: Acute Assessment and Plan: continue anticoagulation (3) Hypotension: Code(s): I95.9 - Hypotension, unspecified Status: Acute Assessment and Plan: resolved likely a combination of pain medication and dehydration (4) Chest pain: Code(s): R07.9 - Chest pain, unspecified Status: Acute (5) Localized swelling of both lower legs: Code(s): R22.43 - Localized swelling, mass and lump, lower limb, bilateral Status: Acute Assessment and Plan: Lucian wraps as needed (6) Essential (primary) hypertension: Code(s): I10 - Essential (primary) hypertension Status: Acute Assessment and Plan: continue home med continue to monitor (7) Vitamin D deficiency: Code(s): E55.9 - Vitamin D deficiency, unspecified Status: Acute Assessment and Plan: continue vitamin (8) RLS (restless legs syndrome): Code(s): G25.81 - Restless legs syndrome Status: Acute Assessment and Plan: continue ropinirole (9) Chronic atrial fibrillation: Code(s): I48.20 - Chronic atrial fibrillation, unspecified Status: Acute Assessment and Plan: rate controlled anticoagulated (10) Chronic diastolic heart failure: Code(s): I50.32 - Chronic diastolic (congestive) heart failure Status: Acute Assessment and Plan: stable follow-up in the outpatient setting (11) Chronic low back pain without sciatica: Qualifiers: Back pain laterality: unspecified Qualified Code(s): M54.5 - Low back pain; G89.29 - Other chronic pain Code(s): M54.5 - Low back pain; G89.29 - Other chronic pain Status: Acute Assessment and Plan: Tylenol as needed DS: Summary Hospital Course Reason for hospitalization: chest pain Hospital Course: this is an 84-year-old female with past medical history significant for atrial free we fibrillation chronic back pain degenerative joint disease osteoporosis hypertension restless leg seems. Patient presented to the emergency room after she had received chest pain upon further interrogation patient is stresses that is actually her back what is hurting, preliminary studies were significant for urinary tract infection patient has been treated with IV antibiotics for the urinalysis culture was significant for E coli pansensitive. Patient was ruled out for acute PE as well. patient was seen in consultation with Cardiology for severe aortic stenosis patient has declined aggressive management of these in the past and will follow-up in the outpatient setting. patient participated with PT OT in therapy sessions. consults obtained: Cardiology procedures done: No perceived Status at Discharge Cognitive/behavioral status at discharge: AAOX3 Functional status at discharge: uses cane/walker Overall status at discharge: patient is progressing back to baseline Time Spent with Patient Time attestation: Total time spent providing and/or coordinating discharge services: Time spent: Greater than 30 minutes DS: Data Data Completed and Pending Labs on day of discharge: Labs
[2020-08-29 14:00] VITALS: BP 132/53; PULSE 68; RESP 20; TEMP 36.2; O2SAT 98
[2020-08-29] MEDS: WITCH HAZEL 40 PADS 1 PAD TOPICAL (15:24)
--- NOTE | 2020-08-29 15:59 | PC.NURSE ---
08-29-[address] Mullen patient had been straining to have a bowel movement and was not dripping bright red blood when attempting to continue to have a bm as well as when ambulating back to bed. Dr Mullen stated patient was okay to still discharge and to have her return to the ED if the bleeding continued or worsened.
== END 2020-08-29 16:15 | disposition home health service (06) | DRG 690 ==
LOC: ANHED 15:06 → ANHIMU 15:51 → ANH3MEDSUR 08-26 15:20 → ANH2MED 08-31 12:47 → ANH3MEDSUR 08-31 12:47 → ANHIMU 08-31 12:47
PROVIDERS: Nurse Practitioner; Admitting Provider Family Medicine; Emergency Provider Emergency Medicine; PCP Family Medicine; Visit Provider Internal Medicine
DX: N39.0 Urinary tract infection, site not specified (principal); I13.0 Hypertensive heart and chronic kidney disease with heart failure and stage 1 through stage 4 chronic kidney disease, or unspecified chronic kidney disease; I50.32 Chronic diastolic (congestive) heart failure; I48.20 Chronic atrial fibrillation, unspecified; B96.20 Unspecified Escherichia coli [E. coli] as the cause of diseases classified elsewhere; R07.89 Other chest pain; I95.9 Hypotension, unspecified; N18.30 Chronic kidney disease, stage 3 unspecified; I35.0 Nonrheumatic aortic (valve) stenosis; E03.9 Hypothyroidism, unspecified; G25.81 Restless legs syndrome; M54.5 Low back pain; G89.29 Other chronic pain; R22.43 Localized swelling, mass and lump, lower limb, bilateral; E55.9 Vitamin D deficiency, unspecified; M81.0 Age-related osteoporosis without current pathological fracture; M19.90 Unspecified osteoarthritis, unspecified site; F41.9 Anxiety disorder, unspecified; Z28.21 Immunization not carried out because of patient refusal; Z79.01 Long term (current) use of anticoagulants; Z79.899 Other long term (current) drug therapy; Z85.038 Personal history of other malignant neoplasm of large intestine
CPT/HCPCS: 36415; 71275; 72125; 72129; 80048; 80053; 81001; 83735; 83880; 84132; 84439; 84443; 84480; 84484; 85025; 85055; 85610; 87077; 87086; 87088; 87186; 93005; 93970; 97110; 97116; 97161; 97165; 97530; 97535; 99285; A9270; C8929; J0696; J1940; J7030; Q9957; Q9967

== ENCOUNTER 2020-09-18 16:39 | Emergency (ER) | payer MEDICARE, MEDICAID, SELFPAY ==
--- NOTE | ~2020-09-18 | CT_ITS ---
EXAMINATION: CT brain wo con DATE: 09/18/2020 17:42 INDICATION: Status post fall. Headache. TECHNIQUE: Computed tomography (CT) of the head was performed without intravenous contrast. The dose- length product was 681.00 mGy-cm. The mA was adjusted according to patient size. Iterative reconstruction technique was employed. COMPARISON: None FINDINGS: There is a right frontal scalp hematoma. Mild generalized atrophy. There are scattered mild periventricular and subcortical white matter changes, most likely related to small vessel ischemic d isease (microangiopathy). No ventriculomegaly or midline shift. No acute intracranial hemorrhage, inf arction, mass or mass effect. No depressed skull fractures. Paranasal sinuses are unremarkable. Masto ids are pneumatized. IMPRESSION: 1. No acute intracranial abnormality. Reviewed, dictated and finalized at location A.
--- NOTE | ~2020-09-18 | CT_ITS ---
EXAMINATION: CT facial & cervical spine wo DATE: 09/18/2020 17:42 INDICATION: Status post fall. Facial and neck pain. TECHNIQUE: Computed tomography (CT) of the maxillofacial region and cervical spine was performed with out intravenous contrast. The dose-length product was 418.47 mGy-cm. Automated exposure control and i terative reconstruction technique were employed. COMPARISON: CT cervical spine dated 08/25/2020 FINDINGS: MAXILLOFACIAL CT: No acute maxillofacial fracture. Orbits and paranasal sinuses intact. There is a right frontal scalp hematoma. No depressed skull fracture. There is carotid atherosclerosis. Osteopenia. CERVICAL SPINE CT: Straightening of cervical lordosis. There is disc narrowing at C5-6 and C6-7. Odontoid process within normal limits. There is degenerative anterolisthesis at C2-3. There are chronic fracture deformities of the T1 and T2 spinous processes. Craniovertebral junction is normal. No acute fracture or traumat ic malalignment. IMPRESSION: 1. No acute abnormality of the facial bones or cervical spine. Reviewed, dictated and finalized at location A.
[2020-09-18 16:46] VITALS: BP 149/77; PULSE 90; RESP 17; TEMP 36.8; O2SAT 96
[2020-09-18 18:19] LABS: Basophils Percent Auto 0.7 % (0.2-1.2); Eosinophils Absolute Auto 0.2 K/mm3 (0-0.3); Eosinophils Percent Auto 2.6 % (0-4.4); Hematocrit 35.9 % (37.0-47.0); Hemoglobin 11.8 g/dL (12.0-15.0); Immature Granulocyte Absolute 0.04 K/mm3 (0.00-0.031); Immature Granulocyte Percent A 0.7 % (0-0.5); Lymphocytes Absolute Auto 1.56 K/mm3 (0.9-3.2); Lymphocytes Percent Auto 27.5 % (18.3-44.2); Mean Corpuscular HGB Conc 32.9 g/dl (32-36); Mean Corpuscular Hemoglobin 36.2 pg (26-34); Mean Corpuscular Volume 110.1 fl (80-100); Mean Platelet Volume 12.1 fl (7.4-10.4); Monocytes Absolute Auto 1.5 K/mm3 (0.1-0.6); Monocytes Percent Auto 26.5 % (2.6-8.5); Neutrophils Absolute Auto 2.4 K/mm3 (1.3-6.7); Nucleated Red Blood Cells Absolute Auto 0.2 K/mm3 (0.0-0.012); Nucleated Red Blood Cells Perc 3.5 % (0.0-0.2); Platelet Count Result 134 k/mm3 (150-375); Red Blood Count 3.26 M/mm3 (4.2-5.4); Red Cell Distribution Width 18.5 % (11.5-14.5); White Blood Count 5.7 K/mm3 (4.5-10.0)
[2020-09-18 18:31] LABS: Anion Gap 8 mmol/L (8-16); Blood Urea Nitrogen 55 mg/dL (7-17); Calcium 9.9 mg/dL (8.4-10.2); Carbon Dioxide 34 mmol/L (22-30); Chloride 97 mmol/L (98-107); Estimated Glomerular Filt Rate 36; Glucose 88 mg/dL (65-105); Sodium 139 mmol/L (137-145)
[2020-09-18 20:04] LABS: Add Urine Microscopic? NO; Appearance Urine Clear (Clear); Bilirubin Urine Negative (Negative); Blood Urine Negative (Negative); Color Urine Yellow (Yellow); Glucose Urine UA Negative (Negative); Ketones Urine Negative (Negative); Leukocyte Esterase Ur Negative LEU/UL (Negative); Nitrate Urine Negative (Negative); Protein Urine Negative (Negative); Specific Grav Ur 1.011 (1.001-1.035); Urobilinogen Urine Negative mg/dL (<2.0)
--- NOTE | 2020-09-18 20:23 | ED.GENADULT ---
HPI - General Adult General Chief complaint: Fall Stated complaint: Fall Sunday, Request Head CT Time Seen by Provider: 09/18/20 16:49 History of Present Illness HPI narrative: Patient is a 4-year-old female who presents ER with bruising to her face. Patient fell 5 days ago while sitting in her rolling chair. She struck her face on the ground. This actually woke her up from sleep and she did not actually lose consciousness. She takes Coumadin. She has developed a lot of bruising since then. Patient has had no decline in mental status according to family. Patient has waxing waning orientation thinks she gets confused at times which is why she is moved into the assisted living center. Patient has no reports of pain. Related Data Home Medications Medication Instructions Recorded Confirmed apixaban 5 mg tablet 5 mg PO BID 05/29/19 08/24/20 ascorbic acid (vitamin C) 500 mg 500 mg PO DAILY 05/29/19 08/24/20 capsule thiamine HCl (vitamin B1) 50 mg 50 mg PO BID tablet 08/27/19 08/24/20 tablet magnesium oxide 800 mg PO BID tablet 10/22/19 08/24/20 potassium chloride 10 mEq 20 meq PO DAILY tablet 01/26/20 08/24/20 tablet,extended release bumetanide 0.5 mg tablet 0.5 mg PO DAILY tablet 08/02/20 08/24/20 levothyroxine 100 mcg PO DAILY 08/24/20 08/24/20 metoprolol succinate 100 mg PO DAILY 08/24/20 08/24/20 omeprazole 20 mg PO DAILY 08/24/20 08/24/20 ropinirole 1 mg PO TID 08/24/20 08/24/20 Allergies Allergy/AdvReac Type Severity Reaction Status Date / Time adhesive Allergy Unknown rash Verified 09/18/20 16:50 ciprofloxacin Allergy Unknown Upset Verified 09/18/20 16:50 stomach codeine Allergy Unknown Chest Pain Verified 09/18/20 16:50 diazepam Allergy Unknown Not Verified 09/18/20 16:50 Entered,Anxiety fenoprofen Allergy Unknown Unknown Verified 09/18/20 16:50 lorazepam Allergy Unknown Anxiety Verified 09/18/20 16:50 Sulfa (Sulfonamide Allergy Unknown THROAT Verified 09/18/20 16:50 Antibiotics) SWELLING , RASH,Hives escitalopram [From Lexapro] AdvReac Mild Nausea Verified 09/18/20 16:50 Review of Systems Review of Systems: All systems reviewed & are unremarkable except as noted in HPI and below Constitutional: Constitutional: Denies chills, Denies fever(s) and Denies weakness ENT: Denies nasal congestion and Denies sore throat Cardiovascular: Cardiovascular: Denies chest pain and Denies radiating jaw, neck or arm pain Respiratory: Respiratory: Denies cough and Denies dyspnea Musculoskeletal: Musculoskeletal: Denies back pain, Denies myalgias, Denies arthralgias and Denies joint swelling Integumentary/Breasts: Comments: Ecchymosis of the face [facility] Past Medical History Medical History (Updated 09/18/20 @ 20:29 by Petar Post MD) Anxiety Aortic stenosis, moderate Chronic anticoagulation Chronic atrial fibrillation Chronic diastolic heart failure Chronic low back pain without sciatica CKD (chronic kidney disease) stage 3, GFR 30-59 ml/min Essential (primary) hypertension History of colon cancer History of colon cancer History of small bowel obstruction Hyperparathyroidism Hypomagnesemia Hypothyroidism (acquired) Insomnia Osteoarthritis Osteoporosis without current pathological fracture RLS (restless legs syndrome) Urinary incontinence in female Vitamin D deficiency Surgical History Surgical History H/O gastric bypass (~1959) History of abdominal surgery History of x6 3, 5, 8, 1960, 1962,1964 History of carpal tunnel release (~2015) History of colon resection (~2003) History of exploratory laparotomy massive adhesiolysis removal mesh foreign body release of small bowel obstruction History of gastric stapling (~1957) History of surgical procedure on eye proper using laser (~06/2020) History of ventral hernia repair (~2004) Hx of appendectomy (~1958) Hx of cholecystectomy (~1958) Family History
[2020-09-18 20:52] VITALS: BP 105/65; PULSE 80; RESP 16; O2SAT 99
== END 2020-09-18 20:53 ==
PROVIDERS: Emergency Provider Emergency Medicine; PCP Family Medicine
DX: S00.83XA Contusion of other part of head, initial encounter (principal); S00.33XA Contusion of nose, initial encounter; S00.12XA Contusion of left eyelid and periocular area, initial encounter; S00.11XA Contusion of right eyelid and periocular area, initial encounter; I48.20 Chronic atrial fibrillation, unspecified; Z79.01 Long term (current) use of anticoagulants; I13.0 Hypertensive heart and chronic kidney disease with heart failure and stage 1 through stage 4 chronic kidney disease, or unspecified chronic kidney disease; N18.30 Chronic kidney disease, stage 3 unspecified; I50.32 Chronic diastolic (congestive) heart failure; Z85.038 Personal history of other malignant neoplasm of large intestine; E21.3 Hyperparathyroidism, unspecified; E03.9 Hypothyroidism, unspecified; M19.90 Unspecified osteoarthritis, unspecified site; M81.0 Age-related osteoporosis without current pathological fracture; G25.81 Restless legs syndrome; E55.9 Vitamin D deficiency, unspecified; Z98.84 Bariatric surgery status; Z90.49 Acquired absence of other specified parts of digestive tract; W05.0XXA Fall from non-moving wheelchair, initial encounter
CPT/HCPCS: 36415; 51701; 70450; 70486; 72125; 80048; 81003; 85025; 99284

== ENCOUNTER 2020-09-21 00:46 | Observation (INO) | payer MEDICARE, MEDICAID, SELFPAY ==
[2020-09-21] VITALS (16 sets, daily range): BP systolic 91–118; BP diastolic 47–69; PULSE 54–79; RESP 16–20; TEMP 35.7–36.6; O2SAT 91–98; BMI 40.5
--- NOTE | ~2020-09-21 | CT_ITS ---
EXAMINATION: CT facial & cervical spine wo DATE: 09/21/2020 01:39 INDICATION: Face and neck injury. TECHNIQUE: Computed tomography (CT) of the maxillofacial region and cervical spine was performed with out intravenous contrast. Automated exposure control and iterative reconstruction technique were empl oyed. The dose-length product was 442.77 mGy-cm. COMPARISON: CT maxillofacial and cervical spine 09/18/2020 FINDINGS: MAXILLOFACIAL CT: There is a right frontal scalp hematoma. There are likely changes of ocular lens replacement surgerie s. Bone alignment is normal. No fracture. CERVICAL SPINE CT: There is 2 mm retrolisthesis of C5 on C6. Vertebral body heights are normal. There is mildly decrease d disc height at C4-C5, severely decreased disc height at C5-C6 and C6-C7, and mildly decreased disc height at C7-T1. The following disc levels are specifically discussed: C2-C3: There is no uncovertebral joint osteoarthritis. There is severe right and mild left facet join t osteoarthritis. There is no neural foraminal stenosis. There is no central canal stenosis. C3-C4: There is no uncovertebral joint osteoarthritis. There is mild bilateral facet joint osteoarthr itis. There is no neural foraminal stenosis. There is no central canal stenosis. C4-C5: There is no uncovertebral joint osteoarthritis. There is no facet joint osteoarthritis. There is no neural foraminal stenosis. There is no central canal stenosis. C5-C6: There is severe bilateral uncovertebral joint osteoarthritis. There is mild bilateral facet itzel int osteoarthritis. There is mild bilateral neural foraminal stenosis. There is mild central canal st enosis. C6-C7: There is severe bilateral uncovertebral joint osteoarthritis. There is moderate bilateral face t joint osteoarthritis. There is mild bilateral neural foraminal stenosis. There is no central canal stenosis. C7-T1: There is no uncovertebral joint osteoarthritis. There is severe bilateral facet joint osteoart hritis. There is no neural foraminal stenosis. There is no central canal stenosis. IMPRESSION: 1. No fracture. 2. Severe cervical spondylosis. Reviewed, dictated and finalized at location A.
--- NOTE | ~2020-09-21 | XR_ITS ---
EXAMINATION: XR chest 1V DATE: 09/21/2020 01:41 INDICATION: Weakness. TECHNIQUE: A single frontal view of the chest was obtained. COMPARISON: Chest single view 10/18/2017 FINDINGS: Again seen is discoid atelectasis in left midlung zone. No pleural effusion or pneumothorax . Cardiomegaly is noted. There are surgical clips and staple lines in right abdomen. IMPRESSION: 1. Discoid atelectasis in left midlung zone. 2. Cardiomegaly. Reviewed, dictated and finalized at location A.
--- NOTE | ~2020-09-21 | CT_ITS ---
EXAMINATION: CT brain wo con DATE: 09/21/2020 01:39 INDICATION: Head injury. Loss of consciousness. TECHNIQUE: Computed tomography (CT) of the head was performed without intravenous contrast. The mA wa s adjusted according to patient size. Iterative reconstruction technique was employed. The dose-lengt h product was 681.00 mGy-cm. COMPARISON: Head CT 09/18/2020 FINDINGS: There are scattered areas of low attenuation in the cerebral white matter. There is no intr acranial hemorrhage, acute infarction, or abnormal intracranial mass lesion. The ventricles are henny l in size. There is a right frontal scalp hematoma. There are likely changes of ocular lens replaceme nt surgeries. The paranasal sinuses are clear. The mastoid air cells are normal. IMPRESSION: 1. Mild nonspecific cerebral white matter disease, which likely represents chronic small vessel ische federico disease. Reviewed, dictated and finalized at location A. IMPRESSION: 1. Mild nonspecific cerebral white matter disease, which likely represents retail reset merchandiser fay small vessel ischemic disease.
[2020-09-21 00:53] LABS: Glucose Point of Care 32 (65-105)
--- NOTE | 2020-09-21 00:55 | ECG_ITS ---
Measurements Intervals [place] Rate: 70 P: [place]: 0 QRS: 169 QRSD: 117 T: 4 QT: 435 QTc: 471 Interpretive Statements ATRIAL FIBRILLATION RIGHT AXIS DEVIATION INCOMPLETE RIGHT BUNDLE BRANCH BLOCK POOR R WAVE PROGRESSION, ANTERIOR LEADS CONSIDER INFERIOR INFARCT, AGE INDETERMINATE BASELINE ARTIFACT- II, III, AVR, AVL, AVF, V1, V3-V5 ABNORMAL ECG Electronically Signed On 09-21-2020 6:56:52 CDT by Jf Melvin D.O.
[2020-09-21 01:17] LABS: Alveolar/Arterial O2 Gradient 21.8 mmHg; Base Excess ABG 3.8 mEq/l (+/-2.0); Fractional Inspired Oxygen 21 %; HCO3 ABG 28.9 mEq/l (22.0-26.0); Oxygen Content ABG 15.8 %vol (16.0-22.0); Oxygen Saturation ABG 94.9 % (95.0-100.0); Oxyhemoglobin 92.5 % THb (90.0-100.0); PCO2 ABG 45.5 mmHg (35.0-45.0); PO2 ABG 73.4 mmHg (80.0-100.0); Total Hemoglobin 12.1 g/dL (12.0-18.0)
[2020-09-21 01:18] LABS: Device ROOM AIR; Modified Allen's Test Pass; Site Drawn RIGHT RADIAL
[2020-09-21 01:22] LABS: Hematocrit 34.6 % (37.0-47.0); Hemoglobin 11.2 g/dL (12.0-15.0); Mean Corpuscular HGB Conc 32.4 g/dl (32-36); Mean Corpuscular Hemoglobin 35.4 pg (26-34); Mean Corpuscular Volume 109.5 fl (80-100); Platelet Count Result 140 k/mm3 (150-375); Red Blood Count 3.16 M/mm3 (4.2-5.4); Red Cell Distribution Width 18.4 % (11.5-14.5); White Blood Count 4.9 K/mm3 (4.5-10.0)
[2020-09-21] MEDS: DEXTROSE 50% 25 GM/50 ML SYRINGE (01:22)
[2020-09-21 01:25] LABS: Glucose Point of Care 261 (65-105)
[2020-09-21 01:29] LABS: Alanine Aminotransferase 23 U/L (4-35); Albumin Level 3.9 g/dL (3.5-5.1); Alkaline Phosphatase 100 U/L (38-126); Anion Gap 8 mmol/L (8-16); Aspartate Amino Transferase 41 U/L (14-36); Bilirubin,Total 1.6 mg/dL (0.2-1.3); Blood Urea Nitrogen 50 mg/dL (7-17); Calcium 9.1 mg/dL (8.4-10.2); Carbon Dioxide 30 mmol/L (22-30); Chloride 97 mmol/L (98-107); Estimated Glomerular Filt Rate 36; Glucose 319 mg/dL (65-105); Lactic Acid Reflex 1.2 mmol/L (0.7-2.1); Magnesium 2.4 mg/dL (1.6-2.3); Potassium 3.9 mmol/L (3.4-5.0); Sodium 135 mmol/L (137-145)
[2020-09-21 01:35] LABS: Prothrombin Time 22.9 Seconds (11.1-14.7)
[2020-09-21 01:40] LABS: Troponin I < 0.012 ng/mL (0.000-0.034)
[2020-09-21 01:52] LABS: Anisocytosis 1+ (NORMAL); Eosinophils Absolute Manual 0.04 K/mm3 (0.02-0.5); Eosinophils Percent Manual 1 % (0-4); Lymphocytes Absolute Manual 1.37 K/mm3 (1.1-4.5); Monocytes Absolute Manual 0.83 K/mm3 (0.1-0.90); Monocytes Percent Manual 17 % (3-9); Neutrophils Percent Manual 54 % (46-73); Platelet Estimate Adequate (Adequate); Total Cells Counted 100
[2020-09-21 02:17] LABS: Add Urine Microscopic? YES; Appearance Urine Clear (Clear); Bilirubin Urine Negative (Negative); Blood Urine Negative (Negative); Color Urine Yellow (Yellow); Glucose Urine UA 1+ mg/dL (Negative); Ketones Urine Negative (Negative); Leukocyte Esterase Ur Negative LEU/UL (Negative); Mucus Urine Rare /lpf; Nitrate Urine Negative (Negative); Protein Urine 1+ mg/dL (Negative); RBC Urine 0-2 /hpf (0-2); Specific Grav Ur 1.017 (1.001-1.035); Urobilinogen Urine Negative mg/dL (<2.0); WBC Urine 0-3 /hpf
[2020-09-21 02:58] LABS: Glucose Point of Care 128 (65-105)
--- NOTE | 2020-09-21 03:14 | ED.GENADULT ---
HPI - General Adult General Chief complaint: Fall Stated complaint: fall Time Seen by Provider: 09/21/20 00:48 History of Present Illness HPI narrative: Patient is a 84-year-old female who presents the emergency department with chief complaint of altered mental status. Per the EMS service the patient was brought in from a local [facility] after she was found unresponsive. Initial Accu-Chek showed a blood sugar of 65 upon arrival to the emergency department she had an Accu-Chek of 35 that was treated with IV dextrose. The patient did respond somewhat after receiving dextrose but is still confused worse than her baseline. Patient was seen in the emergency department recently after she had had a ground-level fall and a large forehead contusion. The patient is currently on an anticoagulant being on apixaban. Patient has no prior history of diabetes and is not on insulin. Per the patient's family a face timed with her on Sunday and had a phone conversation with her on Sunday. 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 Related Data Home Medications Medication Instructions Recorded Confirmed apixaban 5 mg tablet 5 mg PO BID 05/29/19 08/24/20 ascorbic acid (vitamin C) 500 mg 500 mg PO DAILY 05/29/19 08/24/20 capsule thiamine HCl (vitamin B1) 50 mg 50 mg PO BID tablet 08/27/19 08/24/20 tablet magnesium oxide 800 mg PO BID tablet 10/22/19 08/24/20 potassium chloride 10 mEq 20 meq PO DAILY tablet 01/26/20 08/24/20 tablet,extended release bumetanide 0.5 mg tablet 0.5 mg PO DAILY tablet 08/02/20 08/24/20 levothyroxine 100 mcg PO DAILY 08/24/20 08/24/20 metoprolol succinate 100 mg PO DAILY 08/24/20 08/24/20 omeprazole 20 mg PO DAILY 08/24/20 08/24/20 ropinirole 1 mg PO TID 08/24/20 08/24/20 Allergies Allergy/AdvReac Type Severity Reaction Status Date / Time adhesive Allergy Unknown rash Verified 09/18/20 16:50 ciprofloxacin Allergy Unknown Upset Verified 09/18/20 16:50 stomach codeine Allergy Unknown Chest Pain Verified 09/18/20 16:50 diazepam Allergy Unknown Not Verified 09/18/20 16:50 Entered,Anxiety fenoprofen Allergy Unknown Unknown Verified 09/18/20 16:50 lorazepam Allergy Unknown Anxiety Verified 09/18/20 16:50 Sulfa (Sulfonamide Allergy Unknown THROAT Verified 09/18/20 16:50 Antibiotics) SWELLING , RASH,Hives escitalopram [From Lexapro] AdvReac Mild Nausea Verified 09/18/20 16:50 Review of Systems Review of Systems: Narrative: A 10 system review of systems was completed on the patient and is negative except for what is stated in the HPI. Nursing and ancillary documentation was reviewed. [facility] Past Medical History Medical History Anxiety Aortic stenosis, moderate Chronic anticoagulation Chronic atrial fibrillation Chronic diastolic heart failure Chronic low back pain without sciatica CKD (chronic kidney disease) stage 3, GFR 30-59 ml/min Essential (primary) hypertension History of colon cancer History of colon cancer History of small bowel obstruction Hyperparathyroidism Hypomagnesemia Hypothyroidism (acquired) Insomnia Osteoarthritis Osteoporosis without current pathological fracture RLS (restless legs syndrome) Urinary incontinence in female Vitamin D deficiency Surgical History Surgical History H/O gastric bypass (~1959) History of abdominal surgery History of x6 1953, 1955, 1958, 1960, 1962,1964 History of carpal tunnel release (~2015) History of colon resection (~2003) History of exploratory laparotomy massive adhesiolysis removal mesh foreign body release of small bowel obstruction History of gastric stapling (~1957) History of surgical procedure on eye proper using laser (~06/2020) History of ventral hernia repair (~2004) Hx of appende
[2020-09-21] MEDS: SODIUM CHLORIDE 0.9% IV 1,000 ML 999 ML IV CONT (03:35)
[2020-09-21] MEDS: SODIUM CHLORIDE 0.9% IV 1,000 ML 125 ML IV CONT (05:04)
[2020-09-21 05:27] LABS: Glucose Point of Care 81 (65-105)
--- NOTE | 2020-09-21 05:37 | ADMGEN ---
This patient, Radha Knox, was admitted to Medical Room 245-01. Patient/family oriented to hospital policies and general routines including ID bracelet, bed and alarms, visiting hours, pain management, procedures, bathroom and other care routines, personal items, smoking policy, room service/diet, and visiting hours. Information on how to activate the Rapid Response Team has been discussed. Patient/Family are encouraged to report perceived risks to care and to ask questions if they do not understand what they are told or what they should do. Admit time [id number]
[2020-09-21 06:53] LABS: Troponin I < 0.012 ng/mL (0.000-0.034)
[2020-09-21] MEDS: DEXTROSE 5%/0.45% SOD CHL 1,000 ML 75 ML IV CONT (07:38)
[2020-09-21 08:18] LABS: Anion Gap 10 mmol/L (8-16); Blood Urea Nitrogen 50 mg/dL (7-17); Calcium 9.4 mg/dL (8.4-10.2); Carbon Dioxide 30 mmol/L (22-30); Chloride 101 mmol/L (98-107); Estimated Glomerular Filt Rate 36; Glucose 86 mg/dL (65-105); Sodium 141 mmol/L (137-145)
[2020-09-21 08:34] LABS: Cortisol Random 8.31 ug/dL
[2020-09-21] MEDS: GLUCOSE ORAL GEL 15 GM OF GLUCSE IN 37.5 GM TUBE PO (09:26)
[2020-09-21] MEDS: ASCORBIC ACID 500 MG TABLET PO (09:30)
[2020-09-21] MEDS: METOPROLOL SUCCINATE EXT REL 100 MG TABCR PO (09:30)
[2020-09-21] MEDS: LEVOTHYROXINE SODIUM 100 MCG TABLET PO (09:30)
[2020-09-21] MEDS: THIAMINE HCL 50 MG TABLET PO ×2 (09:30→17:04)
[2020-09-21] MEDS: CHOLECALCIFEROL 1,000 UNITS TABLET 2000 UNITS PO (09:31)
[2020-09-21 09:44] LABS: Troponin I < 0.012 ng/mL (0.000-0.034)
--- NOTE | 2020-09-21 10:21 | PM.IMHP ---
H&P: HPI History of Present Illness Date/Time: 09/21/20 10:21 Chief Complaint: Poor responsiveness Narrative: Date of admission: 09/21/2020 Date of service: 09/21/2020 Angie Knox is an 84-year-old female with history of atrial fibrillation on chronic anticoagulation, diastolic heart failure, stage 3 chronic kidney disease, hypertension, remote history of colon cancer s/p colon resection, hypothyroidism, and several other comorbidities who presented to the emergency department on 09/21/2020 after being found down at her assisted living facility. The patient herself is a fair historian, but states that she cannot recall why she came to the hospital. I spoke with her granddaughter who provided most of the history. Her granddaughter states that she was found face down on the floor in her room at her assisted living facility. It is assumed that she fell out of her wheelchair. The fall was unwitnessed and it is unclear if there was any loss of consciousness. Unknown how long she was down for. When staff found her, she was poorly responsive and unable to answer any questions, therefore she was transferred to the emergency department. Upon presentation, she was oriented to self only, blood pressure was slightly decreased at 118/50 with additional vital signs stable, her blood sugar was 35, H&H slightly decreased, BUN and creatinine slightly elevated with additional electrolytes stable, troponin negative, head CT negative for acute findings, CXR with discoid atelectasis and cardiomegaly, and maxillofacial CT demonstrated right frontal scalp hematoma with no evidence of fracture. Her granddaughter also notes that approximately 1 week ago, she also fell out of her wheelchair. At that time there was no loss of consciousness. She was evaluated in the ED several days later with a negative head CT. She is being admitted for observation to the hospitalist service. Supervising physician for this history and physical is Dr. Myla Hendrix. Review of Systems Review of Systems: Narrative: All systems reviewed with pertinent positives and negatives as per HPI. Additionally, patient states that her appetite has been very poor lately and she has barely eaten over the past week. She feels that she has slowly lost weight over the past couple of months due to poor intake. She also complains of constipation, which is a chronic issue for her. Her last bowel movement was 2-3 days ago. Denies melena or hematochezia. She denies dysphagia. She has occasional GERD symptoms. Denies chest pain or palpitations. She recently had cataract surgery. She denies any visual changes at this time. She does complain of pain in her legs related to her rather severe restless leg syndrome. She denies any urinary symptoms. She denies headache or body aches. She denies confusion. She does have trouble recalling some of the details regarding her hospitalization and states that she can be forgetful. Her granddaughter notes that she has been more somnolent lately, and they actually had a PCP appointment scheduled for today to discuss adjusting her sedating medications. [facility] Past Medical History Medical History (Updated 09/21/20 @ 11:25 by Nai White PA-C) Anxiety Aortic stenosis, moderate Chronic anticoagulation Chronic atrial fibrillation Chronic diastolic heart failure Chronic low back pain without sciatica CKD (chronic kidney disease) stage 3, GFR 30-59 ml/min Essential (primary) hypertension History of colon cancer History of small bowel obstruction Hyperparathyroidism Hypomagnesemia Hypothyroidism (acquired) Insomnia Osteoarthritis Osteoporosis without current pathological fracture RLS (restless legs syndrome) Urinary incontinence in female Vitamin D deficiency Surgical History Surgical History H/O gastric bypass (~1959) History of abdominal surgery History of x6 3, 1954, 1957, 196
[2020-09-21 10:55] LABS: Creatine Kinase 31 U/L (30-135)
[2020-09-21 11:55] LABS: Glucose Point of Care 62 (65-105)
[2020-09-21 11:55] LABS: Glucose Point of Care 92 (65-105)
[2020-09-21 12:23] LABS: Folic Acid > 20.0 ng/mL (2.76->20); Vitamin B12 > 1000.0 pg/mL (239-931)
--- NOTE | 2020-09-21 12:24 | PC.NURSE ---
On 09/21/20, the student, [MADDIE MENDOSA], provided care and completed [facility] documentation on this patient. I have reviewed the student's documentation and agree with the findings.
--- NOTE | 2020-09-21 12:24 | PC.NURSE ---
On 09/21/20, the student, [AMY MORRISON], provided care and completed [facility] documentation on this patient. I have reviewed the student's documentation and agree with the findings.
[2020-09-21 12:49] LABS: Free T4 Free Thyroxine Reflex 1.75 ng/dL (0.78-2.19)
[2020-09-21] MEDS: rOPINIRole HCL 1 MG TABLET PO ×3 (13:03→20:25)
[2020-09-21] MEDS: polyethylene glycoL 3350 17 GM POWD.PACK PO (13:10)
--- NOTE | 2020-09-21 14:59 | PCPTNOTE ---
Attempted PT eval. Daughter refused due to low BP and pt in bed sleeping. Will try again tomorrow.
[2020-09-21 17:14] LABS: Glucose Point of Care 86 (65-105)
[2020-09-21 20:20] LABS: Glucose Point of Care 94 (65-105)
[2020-09-21] MEDS: SENNA/DOCUSATE SODIUM TABLET 1 TAB PO (20:24)
[2020-09-21] MEDS: DOCUSATE SODIUM 100 MG CAPSULE PO (20:25)
--- NOTE | 2020-09-21 21:19 | PC.NURSE ---
Pt very confused and states she will not take medicine because the nurse turned off the phone. Dialed phone for pt and she spoke with her daughter, pt very paranoid and states if she takes her meds she will not be here in the morning. Family finally talked pt into taking her medication. Will continue to observe pt closely, pt remains on the phone with her family.
[2020-09-21 23:33] LABS: Glucose Point of Care 103 (65-105)
[2020-09-22] VITALS (7 sets, daily range): BP systolic 114–142; BP diastolic 64–92; PULSE 59–92; RESP 16–22; TEMP 36.3–37; O2SAT 96–99; BMI 40.5
[2020-09-22] MEDS: HALOPERIDOL LACTATE 5 MG/ML VIAL IM
--- NOTE | 2020-09-22 04:57 | PC.NURSE ---
Pt very agitated and screaming for nurse multiple nurses in room Pt remains very suspicious and yells we are going to kill her. Hospitalist called and received orders for Haldol.
[2020-09-22] MEDS: LEVOTHYROXINE SODIUM 100 MCG TABLET PO (05:44)
[2020-09-22 05:47] LABS: Basophils Percent Auto 0.4 % (0.2-1.2); Eosinophils Absolute Auto 0.1 K/mm3 (0-0.3); Eosinophils Percent Auto 0.7 % (0-4.4); Hematocrit 39.2 % (37.0-47.0); Hemoglobin 12.7 g/dL (12.0-15.0); Immature Granulocyte Absolute 0.04 K/mm3 (0.00-0.031); Immature Granulocyte Percent A 0.6 % (0-0.5); Lymphocytes Absolute Auto 1.29 K/mm3 (0.9-3.2); Lymphocytes Percent Auto 18.7 % (18.3-44.2); Mean Corpuscular HGB Conc 32.4 g/dl (32-36); Mean Corpuscular Hemoglobin 35.4 pg (26-34); Mean Corpuscular Volume 109.2 fl (80-100); Monocytes Absolute Auto 1.4 K/mm3 (0.1-0.6); Monocytes Percent Auto 19.6 % (2.6-8.5); Neutrophils Absolute Auto 4.1 K/mm3 (1.3-6.7); Nucleated Red Blood Cells Absolute Auto 0.1 K/mm3 (0.0-0.012); Nucleated Red Blood Cells Perc 1.7 % (0.0-0.2); Platelet Count Result 144 k/mm3 (150-375); Red Blood Count 3.59 M/mm3 (4.2-5.4); Red Cell Distribution Width 18.6 % (11.5-14.5); White Blood Count 6.9 K/mm3 (4.5-10.0)
[2020-09-22 05:55] LABS: Anion Gap 8 mmol/L (8-16); Blood Urea Nitrogen 42 mg/dL (7-17); Carbon Dioxide 29 mmol/L (22-30); Chloride 99 mmol/L (98-107); Estimated Glomerular Filt Rate 43; Glucose 114 mg/dL (65-105); Potassium 4.2 mmol/L (3.4-5.0); Sodium 136 mmol/L (137-145)
[2020-09-22 08:22] LABS: Glucose Point of Care 95 (65-105)
[2020-09-22] MEDS: rOPINIRole HCL 1 MG TABLET PO ×2 (08:58→12:19)
[2020-09-22] MEDS: THIAMINE HCL 50 MG TABLET PO ×2 (08:58→16:30)
[2020-09-22] MEDS: METOPROLOL SUCCINATE EXT REL 100 MG TABCR PO (08:58)
[2020-09-22] MEDS: DOCUSATE SODIUM 100 MG CAPSULE PO ×2 (08:58→20:04)
[2020-09-22] MEDS: CHOLECALCIFEROL 1,000 UNITS TABLET 2000 UNITS PO (08:59)
[2020-09-22] MEDS: ASCORBIC ACID 500 MG TABLET PO (08:59)
[2020-09-22] MEDS: polyethylene glycoL 3350 17 GM POWD.PACK PO (08:59)
--- NOTE | 2020-09-22 13:15 | PM.IMPN ---
Progress Note: A&P Assessment and Plan (1) Frequent falls: Code(s): R29.6 - Repeated falls Status: Acute Assessment and Plan: Fall from wheelchair at assisted living facility on 09/13/20 without LOC. She struck her head. Head CT 09/18 negative. Another fall at facility on 09/20, unwitnessed, unclear if LOC. Found face down on floor for unknown duration and was subsequently poorly responsive. CK wnl. Fall precautions in place Appreciate PT/OT eval Care coordination following. She may benefit from SNF placement given frequent falls. (2) Hypoglycemia: Code(s): E16.2 - Hypoglycemia, unspecified Status: Acute Assessment and Plan: Blood sugar upon arrival was 65. Prior to that she had reported Accu-Chek of 35, for which she was treated with dextrose. She has no history of diabetes. I suspect this episode was due to lack of PO intake. This was likely the reason for her poor responsiveness at presentation, which has improved and her mental status is at baseline. Cortisol is wnl. Blood sugars stable today. Accuchecks and hypoglycemic protocol Continue dietary supplements TID and encourage adequate PO intake. (3) Chronic anticoagulation: Code(s): Z79.01 - rat exterminator (current) use of anticoagulants Status: Acute Assessment and Plan: Patient is on Eliquis for atrial fibrillation. She is established with change management expert Dr. Schulz. She is a high fall risk. She has significant facial bruising from prior fall. [id number] score is 5. HASBLED score is 2. Resume eliquis. Risks vs benefits discussed with granddaughter/POA and she verbalizes understanding. Patient has an upcoming appointment with Dr. Schulz and granddaughter plans to discuss need for continuation of anticoagulation. (4) Essential (primary) hypertension: Code(s): I10 - Essential (primary) hypertension Status: Acute Assessment and Plan: Blood pressure reviewed and are stable. Last BP 130/64. Resume lisinopril Continue metoprolol succinate Monitor BP daily (5) Chronic atrial fibrillation: Code(s): I48.20 - Chronic atrial fibrillation, unspecified Status: Acute Assessment and Plan: Rate is controlled. Telemetry reviewed. Continue metoprolol succinate Resume eliquis Discontinue telemetry (6) CKD (chronic kidney disease) stage 3, GFR 30-59 ml/min: Code(s): N18.3 - Chronic kidney disease, stage 3 (moderate) Status: Acute Assessment and Plan: Baseline creatinine appears to be around 1.2-1.4. Creatinine is remaining consistent with baseline. Monitor renal function closely. Renally dose medications and avoid nephrotoxins. (7) Hematoma of frontal scalp: Code(s): S00.03XA - Contusion of scalp, initial encounter Status: Acute Assessment and Plan: Secondary to fall. Maxillofacial CT on 09/18 and 09/21 was negative for any fracture. Right frontal scalp hematoma noted on imaging and is apparent on physical exam. Area is nontender. H&H is stable. Analgesics available as needed for pain Monitor clinically (8) RLS (restless legs syndrome): Code(s): G25.81 - Restless legs syndrome Status: Acute Assessment and Plan: Patient complains of leg pain. Her granddaughter notes that ropinirole makes her drowsy and has been less helpful. Discontinue ropinirole Transition to pramipexole. Start at 0.125 mg 2-3 hours before bed. She will likely need further uptitration. Will continue this dose for 14 days (based on renal function) prior to any titration. Supportive care (9) Agitation: Code(s): R45.1 - Restlessness and agitation Status: Acute Assessment and Plan: She was noted to be agitated and restless last night. She stated she had a bad dream and als felt that hospital staff was planning to harm her. Unclear etiology for this. May be related to being hospitalized or medication ad
--- NOTE | 2020-09-22 13:36 | PC.NURSE ---
On 09/22/20, the student, [Mynor Bowser ], provided care and completed [facility] documentation on this patient. I have reviewed the student's documentation and agree with the findings.
[2020-09-22] MEDS: traMADol HCL (*CRX) 25 MG TABLET PO (14:33)
[2020-09-22 16:59] LABS: Glucose Point of Care 110 (65-105)
[2020-09-22] MEDS: SENNA/DOCUSATE SODIUM TABLET 1 TAB PO (20:04)
[2020-09-22] MEDS: ZOLPIDEM TARTRATE (*CRX) 5 MG TABLET PO (20:04)
[2020-09-22] MEDS: PRAMIPEXOLE 0.125 MG TABLET PO (20:04)
[2020-09-22] MEDS: APIXABAN 5 MG TABLET PO (20:04)
[2020-09-22 21:25] LABS: Glucose Point of Care 110 (65-105)
[2020-09-22] MEDS: chlordiazePOXIDE (*CRX) 5 MG CAPSULE PO (22:57)
[2020-09-23 05:04] VITALS: BP 128/64; PULSE 98; RESP 20; TEMP 36.6; O2SAT 93
[2020-09-23] MEDS: LEVOTHYROXINE SODIUM 100 MCG TABLET PO (05:26)
[2020-09-23 06:03] LABS: Hematocrit 38.8 % (37.0-47.0); Hemoglobin 12.6 g/dL (12.0-15.0); Mean Corpuscular HGB Conc 32.5 g/dl (32-36); Mean Corpuscular Hemoglobin 35.2 pg (26-34); Mean Corpuscular Volume 108.4 fl (80-100); Platelet Count Result 138 k/mm3 (150-375); Red Blood Count 3.58 M/mm3 (4.2-5.4); Red Cell Distribution Width 18.6 % (11.5-14.5)
[2020-09-23 06:46] LABS: Anion Gap 9 mmol/L (8-16); Blood Urea Nitrogen 35 mg/dL (7-17); Calcium 9.3 mg/dL (8.4-10.2); Carbon Dioxide 28 mmol/L (22-30); Chloride 98 mmol/L (98-107); Estimated Glomerular Filt Rate 53; Glucose 102 mg/dL (65-105); Potassium 4.4 mmol/L (3.4-5.0); Sodium 135 mmol/L (137-145)
[2020-09-23] MEDS: lisinopriL 10 MG TABLET PO (09:02)
[2020-09-23] MEDS: ASCORBIC ACID 500 MG TABLET PO (09:02)
[2020-09-23] MEDS: THIAMINE HCL 50 MG TABLET PO (09:02)
[2020-09-23] MEDS: DOCUSATE SODIUM 100 MG CAPSULE PO (09:02)
[2020-09-23] MEDS: CHOLECALCIFEROL 1,000 UNITS TABLET 2000 UNITS PO (09:02)
[2020-09-23 09:03] VITALS: PULSE 98
[2020-09-23] MEDS: METOPROLOL SUCCINATE EXT REL 100 MG TABCR PO (09:03)
[2020-09-23] MEDS: APIXABAN 5 MG TABLET PO (09:03)
[2020-09-23] MEDS: BUMETANIDE 0.5 MG TABLET 1.5 MG PO (09:04)
[2020-09-23] MEDS: polyethylene glycoL 3350 17 GM POWD.PACK PO (09:04)
[2020-09-23] MEDS: chlordiazePOXIDE (*CRX) 5 MG CAPSULE PO (13:09)
--- NOTE | 2020-09-23 14:35 | PM.DS ---
DS: Admitting Diagnosis Admitting Diagnosis Admitting Diagnosis: Fall, hypoglycemia DS: Discharge Diagnosis Discharge Diagnosis (1) Frequent falls: Code(s): R29.6 - Repeated falls Status: Acute Assessment and Plan: Fall from wheelchair at assisted living facility on 09/13/20 without LOC. She struck her head. Head CT 09/18 negative. Another fall at facility on 09/20, unwitnessed, unclear if LOC. Found face down on floor for unknown duration and was subsequently poorly responsive. CK wnl. Fall precautions discussed. She was evaluated by PT/OT. (2) Hypoglycemia: Code(s): E16.2 - Hypoglycemia, unspecified Status: Acute Assessment and Plan: Blood sugar upon arrival was 65. Prior to that she had reported Accu-Chek of 35, for which she was treated with dextrose and blood sugars stabilized. She has no history of diabetes. I suspect this episode was due to lack of PO intake. Cortisol is wnl. Blood sugars remained stable throughout admission. Discussed with her need for regular PO intake with dietary supplements tid to maintain stable glucose levels. (3) Chronic anticoagulation: Code(s): Z79.01 - penitentiary (current) use of anticoagulants Status: Acute Assessment and Plan: Patient is on Eliquis for atrial fibrillation. She is established with model maker plastic Dr. Schulz. She is a high fall risk. She has significant facial bruising from prior fall. [id number] score is 5. HASBLED score is 2. Discussed risks versus benefits of continue anticoagulation therapy. Patient and family agree to continue with Eliquis at this time and have upcoming appointment established with Dr. Schulz to discuss need for continuation of anticoagulation. (4) Essential (primary) hypertension: Code(s): I10 - Essential (primary) hypertension Status: Acute Assessment and Plan: Blood pressure reviewed and remained stable. Continue lisinopril and metoprolol succinate (5) Chronic atrial fibrillation: Code(s): I48.20 - Chronic atrial fibrillation, unspecified Status: Acute Assessment and Plan: Rate controlled. Telemetry reviewed. Continue metoprolol succinate. Continue Eliquis (6) CKD (chronic kidney disease) stage 3, GFR 30-59 ml/min: Code(s): N18.3 - Chronic kidney disease, stage 3 (moderate) Status: Acute Assessment and Plan: Baseline creatinine appears to be around 1.2-1.4. Creatinine was consistent with baseline. (7) Hematoma of frontal scalp: Code(s): S00.03XA - Contusion of scalp, initial encounter Status: Acute Assessment and Plan: Secondary to fall. Maxillofacial CT on 09/18 and 09/21 was negative for any fracture. Right frontal scalp hematoma noted on imaging and is apparent on physical exam. Area is nontender. H&H remained stable. (8) RLS (restless legs syndrome): Code(s): G25.81 - Restless legs syndrome Status: Acute Assessment and Plan: Patient complains of leg pain. Her granddaughter notes that ropinirole makes her drowsy and has not been effective. Ropinirole was discontinued and she was transitioned to pramipexole started at 0.125 mg 2-3 hours before bed. She will likely need further uptitration. Will continue this dose for 14 days (based on renal function) and she can follow up with PCP for further uptitration as needed. (9) Agitation: Code(s): R45.1 - Restlessness and agitation Status: Acute Assessment and Plan: She was noted to be agitated and restless overnight on 09/21. She stated she had a bad dream and also felt that hospital staff was planning to harm her. Unclear etiology for this. May be hospital induced delirium. No signs of underlying infection. Head CT negative. Her granddaughter states she has never had such episodes in the past. During my evaluation, she remained calm and cooperative but was anxious. Her librium was adjusted to 5 mg q6h PRN (previously 10
== END 2020-09-23 15:35 | disposition home or self-care (01) ==
LOC: ANHED 01:24 → ANH2MED 03:41
PROVIDERS: Admitting Provider Family Medicine; Emergency Provider Emergency Medicine; PCP Family Medicine; Visit Provider Physician Assistant
DX: R29.6 Repeated falls (principal); S00.03XA Contusion of scalp, initial encounter; E16.2 Hypoglycemia, unspecified; I13.0 Hypertensive heart and chronic kidney disease with heart failure and stage 1 through stage 4 chronic kidney disease, or unspecified chronic kidney disease; I48.20 Chronic atrial fibrillation, unspecified; G25.81 Restless legs syndrome; R45.1 Restlessness and agitation; N18.30 Chronic kidney disease, stage 3 unspecified; I50.30 Unspecified diastolic (congestive) heart failure; Z79.01 Long term (current) use of anticoagulants; Z85.038 Personal history of other malignant neoplasm of large intestine
CPT/HCPCS: 36415; 36600; 70450; 70486; 71045; 72125; 80048; 80053; 81001; 82533; 82550; 82607; 82746; 82805; 82948; 83605; 83735; 84439; 84443; 84480; 84484; 85025; 85027; 85055; 85610; 85730; 93005; 96361; 96372; 96374; 96375; 96376; 97110; 97116; 97161; 97165; 97535; 99285; A9270; G0378; J0131; J1630; J7030

== ENCOUNTER 2020-10-08 22:55 | Inpatient (IN) | payer MEDICARE, MEDICAID, SELFPAY ==
--- NOTE | ~2020-10-08 | XR_ITS ---
EXAMINATION: XR ankle RT min 3V EXAM DATE: 10/08/2020 23:31 INDICATION: Swelling of the right ankle. Syncope. TECHNIQUE: Right ankle frontal, lateral and oblique projections obtained and reviewed. There is no p rior study for comparison. FINDINGS: The right ankle mortise appears intact. Bones are osteopenic. Please note that osteopeni a limits sensitivity for detecting fractures by radiographs. There is a fracture at the neck of the right 5th metatarsal bone. This could be a chronic finding, please check for point tenderness and if present, recommend right foot x-ray. Finding has been indicated on the lateral projection There are a rterial calcifications, arteriosclerosis. IMPRESSION: Age indeterminate right 5th metatarsal neck fracture; clinical correlation. Reviewed, dictated and finalized at location G. IMPRESSION: Age indeterminate right 5th metatarsal neck fracture; clinical ursula elation.
--- NOTE | ~2020-10-08 | CT_ITS ---
EXAMINATION: CT facial & cervical spine wo EXAM DATE: 10/08/2020 23:39 INDICATION: Syncope, falls, facial bruising. Head injury. Neck pain. TECHNIQUE: Spiral CT of the facial bones was acquired in the axial plane. Coronal reformatted images were also reviewed. Spiral CT of the cervical spine was performed without contrast. Axial images we re reviewed. Coronal and sagittal reformatted images were also reviewed. The dose-length product (DL P) for this examination was 467.18 mGy-cm. The exposure was tailored according to patient size, and iterative reconstruction (ASIR) was used as additional dose reduction technique. Comparison is made t o prior examination from 09/18/2020. FINDINGS: FACIAL CT: There are no displaced acute nasal bone fractures. The mandible, sinuses and orbits are i ntact. The orbits, globes and extraocular muscles are unremarkable. Bilateral cataract surgery. The visualized sinuses and mastoid air cells are well aerated. There is right frontal scalp hematoma. CERVICAL CT: There is indeterminate right suprahilar opacity, incompletely imaged but measuring about 2 cm on image portion. Nonspecific, but recommend follow-up chest CT to exclude possibility of lung cancer. There is no evidence of acute cervical fracture. The odontoid process is intact. Pre-dens s pace is normal. Prevertebral soft tissue is normal. There are no soft tissue abnormalities identifi ed. There is no disc space widening or traumatic vertebral body subluxation suspected. Moderate to severe loss of the C5-6 and 6-7 disc height. Overall mild to moderate cervical arthropathy A detaile d level by level evaluation of spondylosis can be added as addendum if requested. IMPRESSION: 1. Incidental right suprahilar medially located opacity, incompletely imaged; follow-up nonemergent chest CT recommended to evaluate possibility of lung cancer. 2. Frontal scalp hematoma. 3. No acute facial or cervical findings. Reviewed, dictated and finalized at location G. IMPRESSION: 1. Incidental right suprahilar medially located opacity, incompletely imaged; follow-up nonemergent chest CT recommended to evaluate possibility of lung canc er. 2. Frontal scalp hematoma. 3. No acute facial or cervical findings.
--- NOTE | ~2020-10-08 | CT_ITS ---
EXAMINATION: CT brain wo con EXAM DATE: 10/08/2020 23:39 INDICATION: Syncope, falls, facial bruising. Head injury. TECHNIQUE: Spiral CT of the head was performed without contrast. Axial, coronal and sagittal images were reviewed. The dose-length product (DLP) for this examination was 681.00 mGy-cm. The exposure w as tailored according to patient size, and iterative reconstruction (ASIR) was used as additional dos e reduction technique. Comparison is made to prior examination from 09/21/2020. FINDINGS: There is no acute intraparenchymal hemorrhage. No evidence of intraparenchymal brain mass lesion. No evidence of acute infarction. Please note that initial head CT has limited sensitivity f or small or acute infarctions. There is mild periventricular and subcortical hypodensity, nonspecific but probably related to small vessel ischemic disease. There is moderate prominence of the sulci a nd ventricles related to cerebral atrophy. There is intracranial carotid arteriosclerosis. There a re no extra-axial collections. There is no mass effect or midline shift. Patient has had bilateral ocular lens surgery. There is right frontal scalp hematoma. The visualized sinuses and mastoid air c ells are well aerated. IMPRESSION: 1. No acute intracranial findings. 2. Chronic age related findings. 3. Right frontal scalp hematoma. Reviewed, dictated and finalized at location G.
--- NOTE | ~2020-10-08 | XR_ITS ---
EXAMINATION: XR chest 1V portable EXAM DATE: 10/08/2020 23:31 INDICATION: Weakness, leg swelling. History of falls, atrial fibrillation. TECHNIQUE: Portable AP frontal chest x-ray was obtained. Comparison is made to prior examination from 09/21/2020, 10/18/2017. FINDINGS: Linear left midlung zone scarring, unchanged compared to 2018. The lungs are otherwise deion r. Low lung volume, poor inspiration. There are no pleural effusions. The cardiomediastinal silhouett e is prominent but magnified on this AP technique. There is no pneumothorax suspected. There are bony degenerative changes. IMPRESSION: No acute cardiopulmonary findings. Reviewed, dictated and finalized at location G.
--- NOTE | ~2020-10-08 | CT_ITS ---
EXAMINATION: CT chest abdomen pelvis wo con EXAM DATE: 10/09/2020 13:10 INDICATION: Suprahilar opacity f/o cervical CT. Kidney disease. TECHNIQUE: Spiral CT of the chest, abdomen and pelvis was performed without contrast. Axial, rivera l and sagittal images chest, abdomen and pelvis were reviewed. Coronal maximum intensity pixel image s of chest reviewed. The dose-length product (DLP) for this examination was 1620.59 mGy-cm. The exp osure was tailored according to patient size (auto mA exposure control), and iterative reconstruction (ASIR) was used as additional dose reduction technique. Comparison is made to prior examination from 08/24/2020, 06/27/2019. FINDINGS: CHEST: Basilar subsegmental atelectasis. Small right pleural effusion. Tracheobronchial tree is pa tent. There is no mediastinal, hilar or axillary lymphadenopathy. There is no pneumothorax. The re is cardiomegaly and dense mitral annular and aortic valve calcification. The main, central pulmona ry arteries are dilated which can indicate elevated pulmonary arterial pressure, pulmonary arterial h ypertension. Pulmonary vascular congestion. There is moderate coronary arterial calcification, arteri al sclerosis. ABDOMEN PELVIS: Small amount of perihepatic ascites. There is nonspecific fat stranding extending fr om the gallbladder fossa, down the right-sided retroperitoneum in the colic gutter into the pelvis. T here is also generalized anasarca. Liver, spleen, adrenal glands and pancreas are unremarkable. Gall bladder not identified, patient likely has had cholecystectomy. There is no nephrolithiasis or hydro nephrosis. The uterus is anteverted and morphologically normal. The bladder is collapsed with Fol ey catheter balloon anchor inside. There is no retroperitoneal or pelvic lymphadenopathy. There is mild to moderate scattered arteriosclerotic disease. Pericecal surgical changes, probable cecal resection. There are surgical changes from intact gastric bypass surgery. There is expected amount of colonic stool. No free intraperitoneal gas. There ar e no osteoblastic or osteolytic lesions identified. IMPRESSION: 1. No acute chest, abdomen or pelvis findings. Large azygos vein, no suprahilar mass. 2. Anasarca. Small ascites. Nonspecific fat stranding in the right side of abdomen and retroperitone um into pelvis. 3. Small right pleural effusion. Basilar subsegmental atelectasis. 4. Cardiomegaly, dilated pulmonary arteries and pulmonary vascular congestion. Reviewed, dictated and finalized at location A. IMPRESSION: 1. No acute chest, abdomen or pelvis findings. Large azygos vein, no suprahila r mass. 2. Anasarca. Small ascites. Nonspecific fat stranding in the right side of abd omen and retroperitoneum into pelvis. 3. Small right pleural effusion. Basilar subsegmental atelectasis. 4. Cardiomegaly, dilated pulmonary arteries and pulmonary vascular congestion.
--- NOTE | ~2020-10-08 | XR_ITS ---
EXAMINATION: XR chest 1V portable INDICATION: Shortness of breath TECHNIQUE: Portable AP chest at 1710 hours COMPARISON: 10/08/2020 FINDINGS: Cardiomegaly is noted. There is a mild diffuse interstitial pattern. The lung volumes are l ow. No pleural effusion or pneumothorax is identified. IMPRESSION: 1. Cardiomegaly with likely mild pulmonary edema. Reviewed, dictated and finalized at location A.
--- NOTE | ~2020-10-08 | CT_ITS ---
EXAMINATION: CT abdomen pelvis w con EXAM DATE: 10/14/2020 13:39 INDICATION: Hypotension back pain TECHNIQUE: Spiral CT of the abdomen and pelvis was performed following intravenous injection of 100 m L Omnipaque 350. Axial, coronal and sagittal images of the abdomen and pelvis were reviewed. The do se-length product (DLP) for this examination was 1393.38 mGy-cm. The exposure was tailored according to patient size (auto mA exposure control), and iterative reconstruction (ASIR) was used as addition al dose reduction technique. Comparison is made to prior examination from 10/09/2020. FINDINGS: Again there is generalized anasarca. There is improvement or resolution of previously seen small ascites and nonspecific right colic and retroperitoneal fat stranding. Liver, spleen, adrenal glands and pancreas are unremarkable. Gallbladder not identified, patient likely has had cholecystec grayson. Portal and splenic veins are patent. Kidneys enhance symmetrically. There is no hydronephros is. The uterus is unremarkable. The bladder is unremarkable. There is no retroperitoneal or pelv ic lymphadenopathy. There is mild to moderate scattered arteriosclerotic disease. Pericecal surgical changes, probable cecal resection. There are surgical changes from intact gastric bypass surgery. Low-density colonic fluid, correlate for possible diarrhea. No free intraperitonea l gas. There are no osteoblastic or osteolytic lesions identified. Mild thoracolumbar dextroscolios is, lumbar levoscoliosis. Small bilateral pleural effusions. There is cardiomegaly and bibasilar subs egmental atelectasis. IMPRESSION: 1. Resolution of previously seen small ascites, nonspecific retroperitoneal and right colic gutter f at stranding. Persistent generalized body wall edema. 2. Small pleural effusions and bibasilar subsegmental atelectasis. 3. Low-density loose colonic stool, possible diarrhea. 4. Cardiomegaly. Reviewed, dictated and finalized at location A. IMPRESSION: 1. Resolution of previously seen small ascites, nonspecific retroperitoneal an d right colic gutter fat stranding. Persistent generalized body wall edema. 2. Small pleural effusions and bibasilar subsegmental atelectasis. 3. Low-density loose colonic stool, possible diarrhea. 4. Cardiomegaly.
--- NOTE | ~2020-10-08 | CT_ITS ---
EXAMINATION: CTA chest PE protocol DATE: 10/13/2020 20:12 INDICATION: Shortness of breath and hypoxia TECHNIQUE: Computed tomography angiography (CTA) of the chest was performed with 100 mL Omnipaque-350 intravenous contrast timed to evaluate the pulmonary arteries. Coronal maximum intensity projection 3D-reconstructions were created by the technologist. The dose-length product (DLP) was 909.89 mGy-cm. Automated exposure control and iterative reconstruction technique were employed. COMPARISON: 10/09/2020 FINDINGS: The pulmonary arteries are well-opacified. No pulmonary embolism is identified although sen sitivity is slightly limited by motion artifact. Cardiomegaly is noted. There are small pleural effus ions, right greater than left. Although limited by respiratory motion, there appear to be patchy grou ndglass opacities and smooth interlobular septal thickening. There is dependent atelectasis of the lo wer lobes. There is no pneumothorax. No pathologically enlarged thoracic lymph nodes are identified. There is bursal fluid at the right glenohumeral joint. Diffuse anasarca is noted. There is severe tho racic spondylosis. A stable compression fracture is noted at T6. IMPRESSION: 1. No pulmonary embolism identified, sensitivity slightly limited by motion artifact. 2. Cardiomegaly with mild pulmonary edema. 3. Small pleural effusions. Reviewed, dictated and finalized at location A. IMPRESSION: 1. No pulmonary embolism identified, sensitivity slightly limited by motion art ifact. 2. Cardiomegaly with mild pulmonary edema. 3. Small pleural effusions.
[2020-10-08 23:05] VITALS: BP 95/67; PULSE 77; RESP 16; TEMP 36.4; O2SAT 97
--- NOTE | 2020-10-08 23:12 | ECG_ITS ---
Measurements Intervals [place] Rate: 77 P: [place]: 0 QRS: -76 QRSD: 99 T: 4 QT: 392 QTc: 444 Interpretive Statements ATRIAL FIBRILLATION INCOMPLETE RIGHT BUNDLE BRANCH BLOCK POOR R WAVE PROGRESSION, ANTERIOR LEADS BORDERLINE T WAVE ABNORMALITY- INFERIOR LEADS ABNORMAL ECG Electronically Signed On 10-09-2020 6:55:46 CDT by Jf Melvin D.O.
[2020-10-08 23:28] LABS: Basophils Percent Auto 0.3 % (0.2-1.2); Eosinophils Absolute Auto 0.1 K/mm3 (0-0.3); Eosinophils Percent Auto 1.3 % (0-4.4); Hematocrit 32.5 % (37.0-47.0); Hemoglobin 10.5 g/dL (12.0-15.0); Immature Granulocyte Absolute 0.03 K/mm3 (0.00-0.031); Immature Granulocyte Percent A 0.5 % (0-0.5); Lymphocytes Percent Auto 22.5 % (18.3-44.2); Mean Corpuscular HGB Conc 32.3 g/dl (32-36); Mean Corpuscular Hemoglobin 35.4 pg (26-34); Mean Corpuscular Volume 109.4 fl (80-100); Mean Platelet Volume 11.7 fl (7.4-10.4); Monocytes Absolute Auto 1.1 K/mm3 (0.1-0.6); Monocytes Percent Auto 17.5 % (2.6-8.5); Neutrophils Absolute Auto 3.6 K/mm3 (1.3-6.7); Neutrophils Percent Auto 57.9 % (45.5-73.1); Nucleated Red Blood Cells Absolute Auto 0.1 K/mm3 (0.0-0.012); Nucleated Red Blood Cells Perc 1.3 % (0.0-0.2); Platelet Count Result 158 k/mm3 (150-375); Red Blood Count 2.97 M/mm3 (4.2-5.4); Red Cell Distribution Width 18.6 % (11.5-14.5); White Blood Count 6.2 K/mm3 (4.5-10.0)
[2020-10-08 23:38] LABS: INR 1.4; Prothrombin Time 18.2 Seconds (11.1-14.7)
[2020-10-08 23:49] LABS: Alanine Aminotransferase 32 U/L (4-35); Alkaline Phosphatase 226 U/L (38-126); Anion Gap 9 mmol/L (8-16); Aspartate Amino Transferase 46 U/L (14-36); Bilirubin,Total 0.8 mg/dL (0.2-1.3); Blood Urea Nitrogen 99 mg/dL (7-17); Calcium 9.2 mg/dL (8.4-10.2); Carbon Dioxide 24 mmol/L (22-30); Chloride 99 mmol/L (98-107); Estimated CRCL calculation 18 ml/min; Estimated Glomerular Filt Rate 21; Glucose 94 mg/dL (65-105); Potassium 5.6 mmol/L (3.4-5.0); Sodium 132 mmol/L (137-145)
[2020-10-09] VITALS (21 sets, daily range): BP systolic 75–114; BP diastolic 34–91; PULSE 56–85; RESP 16–24; TEMP 35.8–36.2; O2SAT 90–99; BMI 41.6
[2020-10-09 00:01] LABS: Troponin I < 0.012 ng/mL (0.000-0.034)
[2020-10-09] MEDS: SODIUM CHLORIDE 0.9% IV 1,000 ML 999 ML IV CONT ×3 (00:46→04:29)
[2020-10-09 01:04] LABS: Add Urine Microscopic? YES; Appearance Urine Cloudy (Clear); Bacteria Urine Trace /hpf; Bilirubin Urine Negative (Negative); Blood Urine Negative (Negative); Color Urine Amber (Yellow); Glucose Urine UA Negative (Negative); Hyaline Casts Urine 50+ /lpf; Ketones Urine Negative (Negative); Leukocyte Esterase Ur Negative LEU/UL (Negative); Mucus Urine Rare /lpf; Nitrate Urine Negative (Negative); Protein Urine 1+ mg/dL (Negative); RBC Urine 0-2 /hpf (0-2); Specific Grav Ur 1.018 (1.001-1.035); Squamous Epithelial Cell Urine Occasional /hpf (Few); Urobilinogen Urine Negative mg/dL (<2.0); WBC Urine 0-3 /hpf
--- NOTE | 2020-10-09 05:25 | ED.GENADULT ---
HPI - General Adult General Chief complaint: Syncope Stated complaint: weakness Time Seen by Provider: 10/08/20 23:05 History of Present Illness HPI narrative: Patient 84-year-old female presents the emergency department with chief complaint of generalized weakness. Per the EMS report the patient had a near syncopal episode and may have actually passed out. Patient has had multiple falls recently and was admitted to the hospital with altered mental status and had falls and contusions to her face. The patient is on anticoagulant therapy and is covered with multiple bruises throughout her body. The patient reports that she feels extremely weak and extremely tired. The patient currently lives at an assisted living facility Related Data Home Medications Medication Instructions Recorded Confirmed alendronate 70 mg tablet 70 mg PO WEEKLY tablet 09/29/20 09/29/20 apixaban 5 mg tablet 5 mg PO BID 09/29/20 ascorbic acid (vitamin C) 500 mg 500 mg PO DAILY 09/29/20 capsule bumetanide 0.5 mg tablet 0.5 mg PO DAILY tablet 09/29/20 levothyroxine 100 mcg tablet 100 mcg PO QAM tablet 09/29/20 09/29/20 lisinopril 10 mg tablet 10 mg PO DAILY 09/29/20 magnesium oxide 800 mg PO BID tablet 09/29/20 metoprolol succinate 100 mg 100 mg PO DAILY 09/29/20 tablet,extended release 24 hr omeprazole 20 mg capsule,delayed 20 mg PO DAILY 09/29/20 release potassium chloride 10 mEq 20 meq PO DAILY tablet 09/29/20 tablet,extended release thiamine HCl (vitamin B1) 50 mg 50 mg PO DAILY tablet 09/29/20 tablet Allergies Allergy/AdvReac Type Severity Reaction Status Date / Time ropinirole Allergy Mild Hallucinati Verified 10/09/20 04:21 ng adhesive Allergy Unknown rash Verified 10/09/20 04:21 codeine Allergy Unknown Chest Pain Verified 10/09/20 04:21 diazepam Allergy Unknown Not Verified 10/09/20 04:21 Entered,Anxiety fenoprofen Allergy Unknown Unknown Verified 10/09/20 04:21 lorazepam Allergy Unknown Anxiety, Verified 10/09/20 04:21 Hallucinations Sulfa (Sulfonamide Allergy Unknown THROAT Verified 10/09/20 04:21 Antibiotics) SWELLING , RASH,Hives escitalopram [From Lexapro] AdvReac Mild Nausea Verified 10/09/20 04:21 ciprofloxacin AdvReac Unknown Upset Verified 10/09/20 04:21 stomach Review of Systems Review of Systems: Narrative: A 10 system review of systems was completed on the patient and is negative except for what is stated in the HPI. Nursing and ancillary documentation was reviewed. [facility] Past Medical History Medical History Anxiety Aortic stenosis, moderate Chronic anticoagulation Chronic atrial fibrillation Chronic diastolic heart failure Chronic low back pain without sciatica CKD (chronic kidney disease) stage 3, GFR 30-59 ml/min Essential (primary) hypertension History of colon cancer History of small bowel obstruction Hyperparathyroidism Hypomagnesemia Hypothyroidism (acquired) Insomnia Osteoarthritis Osteoporosis without current pathological fracture RLS (restless legs syndrome) Urinary incontinence in female Vitamin D deficiency Surgical History Surgical History H/O gastric bypass (~1959) History of abdominal surgery History of x6 3, 1955, 1958, 1960, 1962,1964 History of carpal tunnel release (~2014) History of colon resection (~2003) History of exploratory laparotomy massive adhesiolysis removal mesh foreign body release of small bowel obstruction History of gastric stapling (~1957) History of surgical procedure on eye proper using laser (~06/2020) History of ventral hernia repair (~2004) Hx of appendectomy (~1958) Hx of cholecystectomy (~1958) Family History Family History Father Family history of cardiovascular disease Cerebrovascular accident Mother
[2020-10-09] MEDS: SODIUM CHLORIDE 0.9% IV 1,000 ML 125 ML IV CONT (06:06)
--- OUTSIDE RECORDS SUMMARY | 2020-10-09 06:29 | XMS_ITS ---
:1935 Author Care Team Providers Name Role Phone DR. MELVIN CHOU Primary Care Provider [phone] MELVIN CHOU Referring Provider [phone] Allergies Code Code System Name Reaction Severity Status Onset 20231204 RxNorm Ativan ? ? Active ? 2670 RxNorm Codeine ? ? Active ? Sulfa ? ? Active ? (Sulfonamide Antibiotics) 20231127 RxNorm Valium ? ? Active ? Medications Name Status Start Date Stop Date ? ? alendronate 70 mg tablet Active ? Not macy ilable TAKE 1 TABLET BY MOUTH ONCE PER WEEK bumetanide 0.5 mg tablet Active ? Not macy ilable TAKE 3 TABLETS BY MOUTH EVERY DAY celecoxib 200 mg capsule Completed ? 020 cephalexin 500 mg capsule Completed ? 2019 chlordiazepoxide 10 mg capsule Active ? N ot available TAKE 1 CAPSULE BY MOUTH EVERY 8 HOURS NEEDED ANXIETY clindamycin HCl 300 mg capsule Active ? N ot available TAKE 1 CAPSULE BY MOUTH EVERY 6 HOURS FOR 7 DAYS clobetasol 0.05 % cream -gauze 4 Active 05/07/2020 Not available X 4 -silicone adhesive topical kit cyclobenzaprine 5 mg tablet Completed ? 01/26 Eliquis 5 mg tablet Active ? Not availabl e escitalopram 10 mg tablet Active ? Not av ailable famotidine 20 mg tablet Active ? Not avai lable Kenalog 10 mg/mL suspension for injection Active ? Not available In office injection administered by the provider
--- OUTSIDE RECORDS SUMMARY | 2020-10-09 06:29 | XMS_ITS | Encounter Summary ---
:1935 Author Care Team Providers Name Role Phone Dr. El Hernandez Primary Care Provider [phone] El Hernandez Referring Provider [phone] Reason for Visit Left Knee Problem/Pain Assessment and Plan Assessment Note Patient has advanced medial compar tment arthritis in the left knee. She continues to get some benefit from the i njections. She is not a surgical candidate given her age as well as her cardiac sta tus. We will plan on seeing back in 3 months repeat injection. 1. Osteoarthritis of knee ? Kenalog 10 mg/mL suspensio n for injection ? lidocaine (PF) 10 mg/mL (1 %) injection solution ? injection/aspiration joint /bursa (PROC) Discussion Note: None recorded.Patient educational handouts: No information available. Plan of Care Reminders Provider Appointments Any 5 11/05/2020 Moe macias MD 10:30AM Lab None ? ? recorded. Referral None ? ? recorded. Procedures 08/06/2020 ? Injection/aspiratio n Joint/bursa (PROC) Surgeries None ? ? recorded. Imaging None ? ? recorded. Medications Name Start Date ? ? alendronate 70 mg tablet ? TAKE 1 TABLET BY MOUTH ONCE PER WEEK bumetanide 0.5
--- NOTE | 2020-10-09 07:01 | PC.NURSE ---
This patient, Radha Knox, was admitted to IMU Room 206-01. Patient/family oriented to hospital policies and general routines including ID bracelet, bed and alarms, visiting hours, pain management, procedures, bathroom and other care routines, personal items, smoking policy, room service/diet, and visiting hours. Information on how to activate the Rapid Response Team has been discussed. Patient/Family are encouraged to report perceived risks to care and to ask questions if they do not understand what they are told or what they should do.
--- NOTE | 2020-10-09 09:07 | PM.IMHP ---
H&P: HPI History of Present Illness Date/Time: 10/09/20 09:07 Chief Complaint: Fall Narrative: Date of admission: 10/09/20 Date of service: 10/09/20 Angie Knox is an 84-year-old female with history of atrial fibrillation on chronic anticoagulation, diastolic heart failure, stage 3 chronic kidney disease, hypertension, remote history of colon cancer s/p colon resection, hypothyroidism, several other comorbidities, and recent hospital admission from 09/21- due to falls who presented to the emergency department from her assisted living facility after reportedly having a fall with concerns for syncope. She tells me she fell but is unable to recall the details of this event. She does not believe she hit her head. She denies any new injuries or pain, including head pain or pain in extremities. She states that for the past 2-3 days, she had not been feeling well and was not eating or drinking much. She did not have nausea, vomiting, diarrhea, or abdominal pain, but simply reports poor appetite and feeling poorly. With further investigation following discussion with retirement staff, they report she did not fall or have any episode of syncope and was brought in because her blood pressure was found to be low. Upon presentation to the ED, her blood pressure was 95/67 with additional vital signs stable, H&H slightly decreased, sodium 132, potassium 5.6, BUN 99, Cr 2.2, mag 3.0, additional electrolytes stable, lactic 1.0, UA without concerns for infection, head CT negative, facial and cervical spine CT negative for acute findings with evidence of frontal scalp hematoma sustained from prior fall. Upon my evaluation, she is feeling well and her only complaint is that she is cold. She is being admitted to the hospitalist service. Supervising physician for this history and physical is Dr. Cabrera Schofield. Review of Systems Review of Systems: Narrative: All systems reviewed with pertinent positives and negatives as per HPI. She is upset that her children are not present and is tearful. She denies dizziness or lightheadedness. She notes she has been having difficulty getting around due to chronic discomfort in her legs from her RLS, which seems to be worsening. She uses a walker or wheelchair. She denies shortness of breath, cough, chest pain, palpitations, or wheezing. Denies lower extremity swelling. She reports typically being constipated but cannot recall when her last BM was. She denies numbness or tingling in her extremities. Reports general malaise. Denies nausea, vomiting, fever, chills. No abdominal pain. Denies diarrhea. No unilateral weakness. No weight changes. Denies headache. No confusion. She has been urinating without difficulty and denies dysuria, hematuria, urgency, or frequency. [facility] Past Medical History Medical History (Updated 10/09/20 @ 09:36 by Nai White PA-C) Anxiety Aortic stenosis, moderate Chronic anticoagulation Eliquis for atrial fibrillation Chronic atrial fibrillation Chronic diastolic heart failure Chronic low back pain without sciatica CKD (chronic kidney disease) stage 3, GFR 30-59 ml/min Essential (primary) hypertension History of colon cancer History of small bowel obstruction Hyperparathyroidism Hypomagnesemia Hypothyroidism (acquired) Insomnia Osteoarthritis Osteoporosis without current pathological fracture RLS (restless legs syndrome) Urinary incontinence in female Vitamin D deficiency Surgical History Surgical History H/O gastric bypass (~1959) History of abdominal surgery History of x6 3, 1955, 8, 1960, 1962,1964 History of carpal tunnel release (~2015) History of colon resection (~2003) History of exploratory laparotomy massive adhesiolysis removal mesh foreign body release of small bowel obstruction History of gastric stapling (~1957) History of surgical procedure on eye proper using laser (~06/2020) History
[2020-10-09 09:35] LABS: Hematocrit 30.6 % (37.0-47.0); Mean Corpuscular HGB Conc 32.7 g/dl (32-36); Mean Corpuscular Hemoglobin 35.6 pg (26-34); Mean Corpuscular Volume 108.9 fl (80-100); Mean Platelet Volume 11.4 fl (7.4-10.4); Platelet Count Result 142 k/mm3 (150-375); Red Blood Count 2.81 M/mm3 (4.2-5.4); Red Cell Distribution Width 18.5 % (11.5-14.5); White Blood Count 5.8 K/mm3 (4.5-10.0)
[2020-10-09 09:40] LABS: Anion Gap 9 mmol/L (8-16); Blood Urea Nitrogen 91 mg/dL (7-17); Calcium 8.2 mg/dL (8.4-10.2); Carbon Dioxide 20 mmol/L (22-30); Chloride 104 mmol/L (98-107); Estimated CRCL calculation 20 ml/min; Estimated Glomerular Filt Rate 24; Glucose 75 mg/dL (65-105); Potassium 5.4 mmol/L (3.4-5.0); Sodium 133 mmol/L (137-145)
[2020-10-09 10:13] LABS: Magnesium 2.8 mg/dL (1.6-2.3)
[2020-10-09] MEDS: MIDODRINE HCL 2.5 MG TABLET 5 MG PO ×2 (11:15→17:13)
[2020-10-09] MEDS: THIAMINE HCL 50 MG TABLET PO (11:15)
[2020-10-09] MEDS: LEVOTHYROXINE SODIUM 100 MCG TABLET PO (11:15)
[2020-10-09] MEDS: SODIUM CHLORIDE 0.9% IV 1,000 ML 100 ML IV CONT (14:38)
[2020-10-09] MEDS: APIXABAN 5 MG TABLET PO (17:13)
[2020-10-09] MEDS: ACETAMINOPHEN 325 MG TABLET 650 MG PO (22:30)
[2020-10-09] MEDS: PRAMIPEXOLE 0.125 MG TABLET PO (22:32)
[2020-10-10] VITALS (16 sets, daily range): BP systolic 96–131; BP diastolic 36–77; PULSE 66–97; RESP 14–24; TEMP 35.6–36.8; O2SAT 93–100
[2020-10-10] MEDS: ACETAMINOPHEN 325 MG TABLET 650 MG PO ×3 (05:13→12:31)
[2020-10-10] MEDS: MIDODRINE HCL 10 MG TABLET PO ×3 (05:14→12:32)
[2020-10-10] MEDS: LEVOTHYROXINE SODIUM 100 MCG TABLET PO (05:15)
[2020-10-10 07:20] LABS: Basophils Percent Auto 0.4 % (0.2-1.2); Eosinophils Absolute Auto 0.1 K/mm3 (0-0.3); Eosinophils Percent Auto 1.2 % (0-4.4); Hematocrit 31.3 % (37.0-47.0); Hemoglobin 10.5 g/dL (12.0-15.0); Immature Granulocyte Absolute 0.08 K/mm3 (0.00-0.031); Immature Granulocyte Percent A 1.4 % (0-0.5); Lymphocytes Absolute Auto 1.05 K/mm3 (0.9-3.2); Lymphocytes Percent Auto 18.6 % (18.3-44.2); Mean Corpuscular HGB Conc 33.5 g/dl (32-36); Mean Corpuscular Hemoglobin 35.7 pg (26-34); Mean Corpuscular Volume 106.5 fl (80-100); Mean Platelet Volume 11.7 fl (7.4-10.4); Monocytes Percent Auto 17.2 % (2.6-8.5); Neutrophils Absolute Auto 3.5 K/mm3 (1.3-6.7); Neutrophils Percent Auto 61.2 % (45.5-73.1); Nucleated Red Blood Cells Absolute Auto 0.2 K/mm3 (0.0-0.012); Platelet Count Result 151 k/mm3 (150-375); Red Blood Count 2.94 M/mm3 (4.2-5.4); Red Cell Distribution Width 18.6 % (11.5-14.5); White Blood Count 5.7 K/mm3 (4.5-10.0)
[2020-10-10 07:35] LABS: Anion Gap 7 mmol/L (8-16); Blood Urea Nitrogen 84 mg/dL (7-17); Calcium 8.6 mg/dL (8.4-10.2); Carbon Dioxide 19 mmol/L (22-30); Chloride 108 mmol/L (98-107); Estimated CRCL calculation 24 ml/min; Estimated Glomerular Filt Rate 31; Glucose 60 mg/dL (65-105); Magnesium 2.9 mg/dL (1.6-2.3); Potassium 5.3 mmol/L (3.4-5.0); Sodium 134 mmol/L (137-145)
[2020-10-10] MEDS: polyethylene glycoL 3350 17 GM POWD.PACK PO (08:40)
[2020-10-10] MEDS: APIXABAN 5 MG TABLET PO ×2 (08:40→18:08)
[2020-10-10] MEDS: THIAMINE HCL 50 MG TABLET PO (08:40)
--- NOTE | 2020-10-10 10:18 | PM.IMPN ---
Progress Note: A&P Assessment and Plan (1) Hypotension: Code(s): I95.9 - Hypotension, unspecified Status: Inactive Assessment and Plan: BP as low as 75/34. Likely secondary to acute dehydration in setting of poor PO intake and diuretics. She is asymptomatic and tolerating low pressures. Cortisol, TSH levels reviewed. BP improving and SBP has been >90 today. Last BP 116/74 Monitor BP closely with goal SBP >90 and MAP >65 Continue midodrine 10 mg TID. Plan to decrease as BP improves MADELIN hose IV fluids have been discontinued. BP stable off fluids. Check orthostatic blood pressures Antihypertensives are on hold (2) Acute dehydration: Code(s): E86.0 - Dehydration Status: Acute Assessment and Plan: Secondary to poor PO intake and diuretics. Encourage PO intake Blood cultures pending. Doubt acute infection. Monitor volume status closely with I&Os. Hall catheter initiated in ED, presumably for I&O monitoring. Continue at this time. (3) Acute on chronic kidney failure: Code(s): N17.9 - Acute kidney failure, unspecified; N18.9 - Chronic kidney disease, unspecified Status: Acute Assessment and Plan: Creatinine elevated at 2.2 at presentation. Baseline around 1.2-1.4. Likely pre-renal secondary to acute dehydration. Improving. Monitor renal function closely and avoid nephrotoxic agents (4) Electrolyte abnormality: Code(s): E87.8 - Other disorders of electrolyte and fluid balance, not elsewhere classified Status: Acute Assessment and Plan: Improving. Potassium and magnesium slightly elevated with downward trend. Potassium 5.3 today. Sodium minimally decreased. [place] to be secondary to acute dehydration and has improved with rehydration. Oral potassium and magnesium on hold Monitor BMP and mag daily Continue telemetry. Reviewed (5) Chronic atrial fibrillation: Code(s): I48.20 - Chronic atrial fibrillation, unspecified Status: Acute Assessment and Plan: Rate is controlled. Continue eliquis Hold metoprolol given her low BP (6) CHF (congestive heart failure): Qualifiers: Heart failure type: diastolic Heart failure chronicity: chronic Qualified Code(s): I50.32 - Chronic diastolic (congestive) heart failure Code(s): I50.9 - Heart failure, unspecified Status: Acute Assessment and Plan: Chronic. Chest CT showed cardiomegaly with pulmonary vascular congestion and anasarca. She is asymptomatic and respiratory status is stable. IV fluids have been discontinued Bumex on hold given hypotension. Resume when clinically appropriate. Monitor volume status closely. (7) Abnormal finding on CT scan: Code(s): R93.89 - Abnormal findings on diagnostic imaging of other specified body structures Status: Acute Assessment and Plan: Head/cervical CT demonstrated incidental finding of right suprahilar medially located opacity, incompletely imaged with recommendations for follow-up nonemergent chest CT for further eval. Follow up chest CT showed large azygos vein with no evidence of suprahilar mass. No further evaluation warranted. Additional Plan PT/OT eval Subjective Date/time seen: 10/10/20 10:18 Interval history: Date of service: 10/10/2020 Angie Knox is an 84-year-old female with history of atrial fibrillation on chronic anticoagulation, diastolic heart failure, stage 3 chronic kidney disease, hypertension, remote history of colon cancer s/p colon resection, hypothyroidism, several other comorbidities who is seen in follow-up for hypotension. She is feeling well today. She denies dyspnea, cough, chest pain, or palpitations. Denies dizziness or lightheadedness. No nausea, vomiting, fever, chills, abdominal pain. She reports feeling constipated. No issues with her Hall catheter. She complains of discomfort in her lower extremities related to her
[2020-10-10] MEDS: MIDODRINE HCL 2.5 MG TABLET 5 MG PO (18:08)
[2020-10-10] MEDS: CHOLECALCIFEROL 1,000 UNITS TABLET 2000 UNITS PO (18:08)
[2020-10-10] MEDS: PRAMIPEXOLE 0.125 MG TABLET PO (18:08)
[2020-10-10] MEDS: DOCUSATE SODIUM 100 MG CAPSULE PO (20:02)
[2020-10-10] MEDS: chlordiazePOXIDE (*CRX) 5 MG CAPSULE PO (20:02)
[2020-10-11] VITALS (17 sets, daily range): BP systolic 111–133; BP diastolic 75–86; PULSE 63–135; RESP 16–24; TEMP 35.8–36.9; O2SAT 94–99
[2020-10-11] MEDS: ACETAMINOPHEN 325 MG TABLET 650 MG PO ×2 (03:59→18:23)
[2020-10-11 05:21] LABS: Hematocrit 30.3 % (37.0-47.0); Mean Corpuscular Hemoglobin 35.1 pg (26-34); Mean Corpuscular Volume 106.3 fl (80-100); Mean Platelet Volume 11.9 fl (7.4-10.4); Platelet Count Result 159 k/mm3 (150-375); Red Blood Count 2.85 M/mm3 (4.2-5.4); Red Cell Distribution Width 18.5 % (11.5-14.5); White Blood Count 5.4 K/mm3 (4.5-10.0)
[2020-10-11 05:40] LABS: Anion Gap 7 mmol/L (8-16); Blood Urea Nitrogen 79 mg/dL (7-17); Calcium 9.2 mg/dL (8.4-10.2); Carbon Dioxide 20 mmol/L (22-30); Chloride 107 mmol/L (98-107); Estimated CRCL calculation 29 ml/min; Estimated Glomerular Filt Rate 39; Glucose 79 mg/dL (65-105); Magnesium 2.8 mg/dL (1.6-2.3); Potassium 5.2 mmol/L (3.4-5.0); Sodium 134 mmol/L (137-145)
[2020-10-11] MEDS: LEVOTHYROXINE SODIUM 100 MCG TABLET PO (06:01)
[2020-10-11] MEDS: polyethylene glycoL 3350 17 GM POWD.PACK PO (06:36)
[2020-10-11] MEDS: APIXABAN 5 MG TABLET PO ×2 (08:16→18:26)
[2020-10-11] MEDS: DOCUSATE SODIUM 100 MG CAPSULE PO ×2 (08:16→22:10)
[2020-10-11] MEDS: chlordiazePOXIDE (*CRX) 5 MG CAPSULE PO ×2 (08:16→15:01)
[2020-10-11] MEDS: SERTRALINE HCL 25 MG TABLET PO (08:17)
[2020-10-11] MEDS: MIDODRINE HCL 2.5 MG TABLET PO ×3 (08:17→17:49)
[2020-10-11] MEDS: THIAMINE HCL 50 MG TABLET PO (08:17)
--- NOTE | 2020-10-11 10:40 | P.PNIM_ITS ---
Progress Note: A&P Assessment and Plan (1) Hypotension: Code(s): I95.9 - Hypotension, unspecified Status: Inactive Assessment and Plan: Improving. BP as low as 75/34 a presentation. Likely secondary to acute d ehydration in setting of poor PO intake and diuretics.. Cortisol, TSH levels reviewed. BP improving and SBP has been >110 today. Last BP 128/81 * Monitor BP closely with goal SBP >90 and MAP >65 * Decrease midodrine to 2.5 mg TID. Plan to discontinue if BP remains stable. * MADELIN hose * Check orthostatic blood pressures * Antihypertensives are on hold. (2) Acute dehydration: Code(s): E86.0 - Dehydration Status: Acute Assessment and Plan: Secondary to poor PO intake and diuretics. * Encourage PO intake * Blood cultures pending. Doubt acute infection. * Monitor volume status closely with I&Os. * Hall catheter initiated in ED presumably for I&O monitoring can be discontinued. Voiding trial today. (3) Acute on chronic kidney failure: Code(s): N17.9 - Acute kidney failure, unspecified; N18.9 - Chronic kidney disease, unspecified Status: Acute Assessment and Plan: Creatinine elevated at 2.2 at presentation. Baseline around 1.2-1.4. Likely pre- renal secondary to acute dehydration. Renal function is back to her baseline * Monitor renal function closely and avoid nephrotoxic agents (4) Electrolyte abnormality: Code(s): E87.8 - Other disorders of electrolyte and fluid balance, not elsewhere classified Status: Acute Assessment and Plan: Improving. Potassium and magnesium slightly elevated with downward trend. Potassium 5.2 today. Sodium minimally decreased. [place] to be secondary to acute dehydration and has improved with rehydration. * Oral potassium and magnesium on hold * Monitor BMP and mag daily * Continue telemetry. Reviewed (5) Chronic atrial fibrillation: Code(s): I48.20 - Chronic atrial fibrillation, unspecified Status: Acute Assessment and Plan: Rate is controlled. * Continue eliquis * Metoprolol on hold given hypotension. Will plan to resume at lower dose tomorrow if BP remains stable (6) CHF (congestive heart failure): Qualifiers: Heart failure chronicity: chronic Heart failure type: diastolic Qualified Code(s): I50.32 - Chronic diastolic (congestive) heart failure Code(s): I50.9 - Heart failure, unspecified Status: Acute Assessment and Plan: Chronic. Chest CT showed cardiomegaly with pulmonary vascular congestion and anasarca. She is asymptomatic and respiratory status is stable. * IV fluids have been discontinued * Bumex on hold given hypotension. Resume when clinically appropriate. * Monitor volume status closely. (7) Abnormal finding on CT scan: Code(s): R93.89 - Abnormal findings on diagnostic imaging of other specified body structures Status: Acute Assessment and Plan: Head/cervical CT demonstrated incidental finding of right suprahilar medially located opacity, incompletely imaged with recommendations for follow-up nonemergent chest CT for further eval. Follow up chest CT showed large azygos vein with no evidence of suprahilar mass. No further evaluation warranted. Additional Plan Given stable blood pressures, she can be downgraded from IMU to medical floor with telemetry. Subjective Date/time seen: 10/11/20 10:40 Interval history: Date of service: 10/11/2020 Angie Knox is an 84-year-old female wi
--- NOTE | 2020-10-11 10:40 | PM.IMPN ---
Progress Note: A&P Assessment and Plan (1) Hypotension: Code(s): I95.9 - Hypotension, unspecified Status: Inactive Assessment and Plan: Improving. BP as low as 75/34 a presentation. Likely secondary to acute dehydration in setting of poor PO intake and diuretics.. Cortisol, TSH levels reviewed. BP improving and SBP has been >110 today. Last BP 128/81 Monitor BP closely with goal SBP >90 and MAP >65 Decrease midodrine to 2.5 mg TID. Plan to discontinue if BP remains stable. MADELIN brown Check orthostatic blood pressures Antihypertensives are on hold. (2) Acute dehydration: Code(s): E86.0 - Dehydration Status: Acute Assessment and Plan: Secondary to poor PO intake and diuretics. Encourage PO intake Blood cultures pending. Doubt acute infection. Monitor volume status closely with I&Os. Hall catheter initiated in ED presumably for I&O monitoring can be discontinued. Voiding trial today. (3) Acute on chronic kidney failure: Code(s): N17.9 - Acute kidney failure, unspecified; N18.9 - Chronic kidney disease, unspecified Status: Acute Assessment and Plan: Creatinine elevated at 2.2 at presentation. Baseline around 1.2-1.4. Likely pre-renal secondary to acute dehydration. Renal function is back to her baseline Monitor renal function closely and avoid nephrotoxic agents (4) Electrolyte abnormality: Code(s): E87.8 - Other disorders of electrolyte and fluid balance, not elsewhere classified Status: Acute Assessment and Plan: Improving. Potassium and magnesium slightly elevated with downward trend. Potassium 5.2 today. Sodium minimally decreased. [place] to be secondary to acute dehydration and has improved with rehydration. Oral potassium and magnesium on hold Monitor BMP and mag daily Continue telemetry. Reviewed (5) Chronic atrial fibrillation: Code(s): I48.20 - Chronic atrial fibrillation, unspecified Status: Acute Assessment and Plan: Rate is controlled. Continue eliquis Metoprolol on hold given hypotension. Will plan to resume at lower dose tomorrow if BP remains stable (6) CHF (congestive heart failure): Qualifiers: Heart failure chronicity: chronic Heart failure type: diastolic Qualified Code(s): I50.32 - Chronic diastolic (congestive) heart failure Code(s): I50.9 - Heart failure, unspecified Status: Acute Assessment and Plan: Chronic. Chest CT showed cardiomegaly with pulmonary vascular congestion and anasarca. She is asymptomatic and respiratory status is stable. IV fluids have been discontinued Bumex on hold given hypotension. Resume when clinically appropriate. Monitor volume status closely. (7) Abnormal finding on CT scan: Code(s): R93.89 - Abnormal findings on diagnostic imaging of other specified body structures Status: Acute Assessment and Plan: Head/cervical CT demonstrated incidental finding of right suprahilar medially located opacity, incompletely imaged with recommendations for follow-up nonemergent chest CT for further eval. Follow up chest CT showed large azygos vein with no evidence of suprahilar mass. No further evaluation warranted. Additional Plan Given stable blood pressures, she can be downgraded from IMU to medical floor with telemetry. Subjective Date/time seen: 10/11/20 10:40 Interval history: Date of service: 10/11/2020 Angie Knox is an 84-year-old female with history of atrial fibrillation on chronic anticoagulation, diastolic heart failure, stage 3 chronic kidney disease, hypertension, remote history of colon cancer s/p colon resection, hypothyroidism, and several other comorbidities who is seen in follow-up for hypotension. She is feeling about the same today. She is still quite tearful. She is upset about being in the hospital and wants to go home. Otherwise, she has no concerns at this time
[2020-10-11] MEDS: METOPROLOL TARTRATE 25 MG TABLET PO (12:09)
[2020-10-11] MEDS: traMADol/ACETAMINOPHEN (*CRX) (ULTRACET) 37.5/325 MG TABLET 1 TAB PO (15:38)
[2020-10-11] MEDS: CHOLECALCIFEROL 1,000 UNITS TABLET 2000 UNITS PO (15:41)
--- NOTE | 2020-10-11 16:42 | PC.NURSE ---
This patient, Radha Knox, was transferred to [facility] on 10/11/20 at 1630. Personal belongings sent with patient. Report given to Laila. Appropriate documentation sent with patient.
[2020-10-11] MEDS: PRAMIPEXOLE 0.125 MG TABLET PO (18:26)
--- NOTE | 2020-10-11 18:34 | ADMGEN ---
This patient, Radha Knox, was admitted to 3 Med Surg Room 325-02 at 1635. Patient/family oriented to hospital policies and general routines including ID bracelet, bed and alarms, visiting hours, pain management, procedures, bathroom and other care routines, personal items, smoking policy, room service/diet, and visiting hours. Information on how to activate the Rapid Response Team has been discussed. Patient/Family are encouraged to report perceived risks to care and to ask questions if they do not understand what they are told or what they should do.
[2020-10-11] MEDS: METOPROLOL TARTRATE 12.5 MG TABLET PO (22:10)
[2020-10-11] MEDS: traZODone HCL 50 MG TABLET PO (22:12)
[2020-10-12] VITALS (12 sets, daily range): BP systolic 93–135; BP diastolic 51–75; PULSE 60–123; RESP 20; TEMP 36.3–36.4; O2SAT 92–99
[2020-10-12] MEDS: chlordiazePOXIDE (*CRX) 5 MG CAPSULE PO (03:21)
--- NOTE | 2020-10-12 03:35 | PC.NURSE ---
0336: Dr. Sharon Culp notified to inform that Right forearm IV access came out during transfer BSC to bed via [employer] assist. LVM to inquire on whether to re-start IV access. All IVF's are currently d/c'd. Awaiting response at this time.
--- NOTE | 2020-10-12 03:42 | PC.NURSE ---
0342: Dr. Mullen returned call with orders to leave IV access out for now and endorse to AM shift that if a need should arrise for IV peripheral access then to call MD to obtain another order.
[2020-10-12] MEDS: LEVOTHYROXINE SODIUM 100 MCG TABLET PO (06:18)
[2020-10-12 06:23] LABS: Hematocrit 27.9 % (37.0-47.0); Hemoglobin 9.1 g/dL (12.0-15.0)
[2020-10-12 06:35] LABS: Anion Gap 6 mmol/L (8-16); Blood Urea Nitrogen 79 mg/dL (7-17); Calcium 9.3 mg/dL (8.4-10.2); Carbon Dioxide 23 mmol/L (22-30); Chloride 107 mmol/L (98-107); Estimated CRCL calculation 31 ml/min; Estimated Glomerular Filt Rate 43; Glucose 96 mg/dL (65-105); Magnesium 2.6 mg/dL (1.6-2.3); Potassium 5.4 mmol/L (3.4-5.0); Sodium 136 mmol/L (137-145)
[2020-10-12] MEDS: ACETAMINOPHEN 325 MG TABLET 650 MG PO (08:32)
[2020-10-12] MEDS: DOCUSATE SODIUM 100 MG CAPSULE PO ×2 (08:33→20:36)
[2020-10-12] MEDS: THIAMINE HCL 50 MG TABLET PO (08:33)
[2020-10-12] MEDS: polyethylene glycoL 3350 17 GM POWD.PACK PO (08:34)
[2020-10-12] MEDS: MIDODRINE HCL 2.5 MG TABLET PO ×2 (08:34→17:58)
[2020-10-12] MEDS: SERTRALINE HCL 25 MG TABLET PO (08:34)
[2020-10-12] MEDS: APIXABAN 5 MG TABLET PO ×2 (08:34→17:58)
[2020-10-12] MEDS: METOPROLOL TARTRATE 12.5 MG TABLET PO ×2 (08:34→20:36)
[2020-10-12] MEDS: traMADol/ACETAMINOPHEN (*CRX) (ULTRACET) 37.5/325 MG TABLET 1 TAB PO (10:00)
--- NOTE | 2020-10-12 14:18 | PM.IMPN ---
Progress Note: A&P Assessment and Plan (1) Hypotension: Code(s): I95.9 - Hypotension, unspecified Status: Inactive Assessment and Plan: Improving. BP as low as 75/34 at presentation. Likely secondary to acute dehydration in setting of poor PO intake and diuretics.. Cortisol, TSH levels reviewed. BP improving and SBP has been >110 today. Last BP 116/75 Monitor BP closely with goal SBP >90 and MAP >65 Decrease midodrine to 2.5 mg BID. Continue to wean as BP allows MADELIN hose Antihypertensives are on hold. Metoprolol was resumed at low dose given tachycardia. BP tolerating well. (2) Acute dehydration: Code(s): E86.0 - Dehydration Status: Acute Assessment and Plan: Secondary to poor PO intake and diuretics. Encourage PO intake Monitor volume status closely with I&Os. (3) Acute on chronic kidney failure: Code(s): N17.9 - Acute kidney failure, unspecified; N18.9 - Chronic kidney disease, unspecified Status: Acute Assessment and Plan: Creatinine elevated at 2.2 at presentation. Baseline around 1.2-1.4. Likely pre-renal secondary to acute dehydration. Renal function is back to her baseline Monitor renal function closely and avoid nephrotoxic agents (4) Electrolyte abnormality: Code(s): E87.8 - Other disorders of electrolyte and fluid balance, not elsewhere classified Status: Acute Assessment and Plan: Improving. Potassium and magnesium slightly elevated with downward trend. Sodium minimally decreased. [place] to be secondary to acute dehydration and has improved with rehydration. Potassium slightly decreased at 5.4 Oral potassium and magnesium on hold Monitor BMP and mag daily Continue telemetry. Reviewed Initiate low-potassium diet (5) Chronic atrial fibrillation: Code(s): I48.20 - Chronic atrial fibrillation, unspecified Status: Acute Assessment and Plan: Rate control. Telemetry reviewed. She has few episodes where she becomes tachycardic in the 120s which are very brief and seem to correlate with activity. Continue eliquis Metoprolol resumed. Continue 12.5 mg b.i.d. Uptitrate as needed and as BP allows. Rate currently controlled on this dose. (6) CHF (congestive heart failure): Qualifiers: Heart failure chronicity: chronic Heart failure type: diastolic Qualified Code(s): I50.32 - Chronic diastolic (congestive) heart failure Code(s): I50.9 - Heart failure, unspecified Status: Acute Assessment and Plan: Chronic. Chest CT showed cardiomegaly with pulmonary vascular congestion and anasarca. She is asymptomatic and respiratory status is stable. Bumex on hold given hypotension. Resume when clinically appropriate. Monitor volume status closely. (7) Abnormal finding on CT scan: Code(s): R93.89 - Abnormal findings on diagnostic imaging of other specified body structures Status: Acute Assessment and Plan: Head/cervical CT demonstrated incidental finding of right suprahilar medially located opacity, incompletely imaged with recommendations for follow-up nonemergent chest CT for further eval. Follow up chest CT showed large azygos vein with no evidence of suprahilar mass. No further evaluation warranted. (8) Positive blood culture: Code(s): R78.81 - Bacteremia Status: Acute Assessment and Plan: 1/2 bottles with growth of coag negative staph. Contamination is most likely. Await final results of blood cultures Subjective Date/time seen: 10/12/20 14:18 Interval history: Date of service: 10/12/2020 Angie Knox is an 84-year-old female with history of atrial fibrillation on chronic anticoagulation, diastolic heart failure, stage 3 chronic kidney disease, hypertension, remote history of colon cancer s/p colon resection, hypothyroidism, and several other comorbidities who is seen in follow-up for hypotension. She co
[2020-10-12] MEDS: CHOLECALCIFEROL 1,000 UNITS TABLET 2000 UNITS PO (17:57)
[2020-10-12] MEDS: PRAMIPEXOLE 0.125 MG TABLET PO (17:58)
[2020-10-12] MEDS: traZODone HCL 50 MG TABLET PO (20:36)
[2020-10-13] VITALS (15 sets, daily range): BP systolic 64–101; BP diastolic 30–87; PULSE 71–150; RESP 16–26; TEMP 35.8–36.4; O2SAT 97–100
[2020-10-13] MEDS: traMADol/ACETAMINOPHEN (*CRX) (ULTRACET) 37.5/325 MG TABLET 1 TAB PO (05:17)
[2020-10-13] MEDS: LEVOTHYROXINE SODIUM 100 MCG TABLET PO (05:20)
--- NOTE | 2020-10-13 05:35 | PC.NURSE ---
0530: Patient transferring from bed to chair w/ assist x2. Telemetry has been reading steady HR of 140-mid to upper 160's and holding. Dr. Keyes notified and VM left of current situation. 0535: Current HR trending down to 95-105. No apparent distress noted at this time. Will continue to monitor.
--- NOTE | 2020-10-13 06:03 | PC.NURSE ---
0605: Dr. Keyes returned my call with orders to continue to monitor since HR is trending down. Currently, HR is 114 and VS remain stable. Pt sitting up in chair at bedside w/ no further complaints.
[2020-10-13 06:10] LABS: Hematocrit 26.3 % (37.0-47.0); Hemoglobin 8.6 g/dL (12.0-15.0)
[2020-10-13 06:23] LABS: Anion Gap 5 mmol/L (8-16); Blood Urea Nitrogen 70 mg/dL (7-17); Calcium 9.9 mg/dL (8.4-10.2); Carbon Dioxide 23 mmol/L (22-30); Chloride 108 mmol/L (98-107); Estimated CRCL calculation 37 ml/min; Estimated Glomerular Filt Rate 53; Glucose 83 mg/dL (65-105); Magnesium 2.4 mg/dL (1.6-2.3); Potassium 5.5 mmol/L (3.4-5.0); Sodium 136 mmol/L (137-145)
[2020-10-13] MEDS: METOPROLOL TARTRATE 12.5 MG TABLET PO (08:02)
[2020-10-13] MEDS: SERTRALINE HCL 25 MG TABLET PO (08:02)
[2020-10-13] MEDS: THIAMINE HCL 50 MG TABLET PO (08:02)
[2020-10-13] MEDS: APIXABAN 5 MG TABLET PO ×2 (08:02→17:07)
[2020-10-13] MEDS: DOCUSATE SODIUM 100 MG CAPSULE PO ×2 (08:03→20:29)
[2020-10-13] MEDS: polyethylene glycoL 3350 17 GM POWD.PACK PO (08:04)
[2020-10-13] MEDS: MIDODRINE HCL 2.5 MG TABLET PO ×4 (08:04→17:09)
--- NOTE | 2020-10-13 08:14 | P.PNIM_ITS ---
Progress Note: A&P Assessment and Plan (1) Hypotension: Code(s): I95.9 - Hypotension, unspecified <Nai TolbertEze White PA-C - Last Filed: 10/13/20 08:37> Status: Inactive <Naiabdias Carbajalcrystal, PA-C - Last Filed: 10/13/20 08:37> Assessment and Plan: Improving. BP as low as 75/34 at presentation. [place] to be secondary to acute dehydration in setting of poor PO intake and diuretics. Cortisol, TSH levels reviewed. Last BP 101/61. * Monitor BP closely with goal SBP >90 and MAP >65 * Continue midodrine to 2.5 mg BID. Continue to wean as BP allows * MADELIN brown * Antihypertensives are on hold. Metoprolol was resumed given tachycardia and BP has become a bit softer since restarting, but still remaining stable. <Nai White PA-C - Last Filed: 10/13/20 08:37> (2) Acute dehydration: Code(s): E86.0 - Dehydration <Nai TolbertEze White PA-C - Last Filed: 10/13/20 08:37> Status: Acute <Nai JEze White PA-C - Last Filed: 10/13/20 08:37> Assessment and Plan: Secondary to poor PO intake and diuretics. * Encourage PO intake * Monitor volume status closely with I&Os. <Nai White PA-C - Last Filed: 10/13/20 08:37> (3) Acute on chronic kidney failure: Code(s): N17.9 - Acute kidney failure, unspecified; N18.9 - Chronic kidney disease, unspecified <Nai DidiEze White PA-C - Last Filed: 10/13/20 08:37> Status: Acute <Nai DidiEze White, PA-C - Last Filed: 10/13/20 08:37> Assessment and Plan: Creatinine elevated at 2.2 at presentation. Baseline around 1.2-1.4. Likely pre-renal secondary to acute dehydration. Renal function is back to her baseline * Monitor renal function closely and avoid nephrotoxic agents <Nai White, PA-C - Last Filed: 10/13/20 08:37> (4) Chronic atrial fibrillation: Code(s): I48.20 - Chronic atrial fibrillation, unspecified <Nai White PA-C - Last Filed: 10/13/20 08:37> Status: Acute <Nai White PA-C - Last Filed: 10/13/20 08:37> Assessment and Plan: Telemetry reviewed. Rate is uncontrolled today, mostly in 100-120s but occasionally up to 140s * Continue eliquis * Increase metoprolol to 25 mg. Monitor HR closely while watching BP to ensure it tolerates increased dose. Case discussed with her fraternity adviser. Will pursue formal consultation to cardiology if unable to control HR with medication <Nai White PA-C - Last Filed: 10/13/20 08:37> (5) Electrolyte abnormality: Code(s): E87.8 - Other disorders of electrolyte and fluid balance, not elsewhere classified <Nai White PA-C - Last Filed: 10/13/20 08:37> Status: Acute <Nai White PA-C - Last Filed: 10/13/20 08:37> Assessment and Plan: Potassium and magnesium slightly elevated with downward trend. Sodium minimally decreased. [place] to be secondary to acute dehydration and improved with rehydration. Potassium has slightly increased. * Oral potassium and magnesium on hold * Monitor BMP and mag daily * Continue telemetry. Reviewed * Low-potassium diet <Nai White PA-C - Last Filed: 10/13/20 08:37> (6) CHF (congestive heart failure): Qualifiers: Heart failure chronicity: chronic Heart failure type: diastolic Qualified Code(s): I50.32 - Chronic diastolic (congestive) heart failure <Nai White PA-C - Last Filed: 10/13/20 08:37> Code(s): I50.9 - Heart failure, unspecified <Nai White PA-C - Last Filed: 10/13/20 08:37> Status:
--- NOTE | 2020-10-13 08:14 | PM.IMPN ---
Progress Note: A&P Assessment and Plan (1) Hypotension: Code(s): I95.9 - Hypotension, unspecified <Nai TolbertEze White PA-C - Last Filed: 10/13/20 08:37> Status: Inactive <Nai Carbajalcrystal PA-C - Last Filed: 10/13/20 08:37> Assessment and Plan: Improving. BP as low as 75/34 at presentation. [place] to be secondary to acute dehydration in setting of poor PO intake and diuretics. Cortisol, TSH levels reviewed. Last BP 101/61. Monitor BP closely with goal SBP >90 and MAP >65 Continue midodrine to 2.5 mg BID. Continue to wean as BP allows MADELIN hose Antihypertensives are on hold. Metoprolol was resumed given tachycardia and BP has become a bit softer since restarting, but still remaining stable. <Nai DidiEze White PA-C - Last Filed: 10/13/20 08:37> (2) Acute dehydration: Code(s): E86.0 - Dehydration <Nai TolbertEze White PA-C - Last Filed: 10/13/20 08:37> Status: Acute <Nai TolbertEze Ravencrystal PA-C - Last Filed: 10/13/20 08:37> Assessment and Plan: Secondary to poor PO intake and diuretics. Encourage PO intake Monitor volume status closely with I&Os. <Nai DidiEze White PA-C - Last Filed: 10/13/20 08:37> (3) Acute on chronic kidney failure: Code(s): N17.9 - Acute kidney failure, unspecified; N18.9 - Chronic kidney disease, unspecified <Nai JEze White PA-C - Last Filed: 10/13/20 08:37> Status: Acute <Nai DidiEze White, PA-C - Last Filed: 10/13/20 08:37> Assessment and Plan: Creatinine elevated at 2.2 at presentation. Baseline around 1.2-1.4. Likely pre-renal secondary to acute dehydration. Renal function is back to her baseline Monitor renal function closely and avoid nephrotoxic agents <Nai Madie White, PA-C - Last Filed: 10/13/20 08:37> (4) Chronic atrial fibrillation: Code(s): I48.20 - Chronic atrial fibrillation, unspecified <Nai TolbertEze Ravencrystal SHANNON - Last Filed: 10/13/20 08:37> Status: Acute <Nai TolbertEze RavenMARK rojasYecenia - Last Filed: 10/13/20 08:37> Assessment and Plan: Telemetry reviewed. Rate is uncontrolled today, mostly in 100-120s but occasionally up to 140s Continue eliquis Increase metoprolol to 25 mg. Monitor HR closely while watching BP to ensure it tolerates increased dose. Case discussed with her revenue integrity analyst. Will pursue formal consultation to cardiology if unable to control HR with medication <Nai TolbertEze Ravencrystal SHANNON - Last Filed: 10/13/20 08:37> (5) Electrolyte abnormality: Code(s): E87.8 - Other disorders of electrolyte and fluid balance, not elsewhere classified <Nai White SHANNON - Last Filed: 10/13/20 08:37> Status: Acute <Nai JEze Ravencrystal SHANNON - Last Filed: 10/13/20 08:37> Assessment and Plan: Potassium and magnesium slightly elevated with downward trend. Sodium minimally decreased. [place] to be secondary to acute dehydration and improved with rehydration. Potassium has slightly increased. Oral potassium and magnesium on hold Monitor BMP and mag daily Continue telemetry. Reviewed Low-potassium diet <Nai TolbertEze Ravencrystal SHANNON - Last Filed: 10/13/20 08:37> (6) CHF (congestive heart failure): Qualifiers: Heart failure chronicity: chronic Heart failure type: diastolic Qualified Code(s): I50.32 - Chronic diastolic (congestive) heart failure <Nai JEze White SHANNON - Last Filed: 10/13/20 08:37> Code(s): I50.9 - Heart failure, unspecified <SUNIL PatrickNixon - Last Filed: 10/13/20 08:37> Status: Acute <Nai JEze RavenSUNIL rojasNixon - Last Filed: 10/13/20 08:37> Assessment and Plan: Chronic. Chest CT showed cardiomegaly with pulmonary vascular congestion and anasarca. She is asymptomatic and respiratory status is stable. Bumex on hold given hypotension. Resume when clinically appropriate. Monitor volume status closely. <Nai J. Ravenac
--- NOTE | 2020-10-13 12:48 | PC.NURSE ---
POArgelia Espinosa, called for an update. Made aware of blood pressures and heart rates throughout shift.
[2020-10-13 16:17] LABS: SARS-CoV-2 RNA PCR Negative
[2020-10-13] MEDS: CHOLECALCIFEROL 1,000 UNITS TABLET 2000 UNITS PO (17:07)
[2020-10-13] MEDS: PRAMIPEXOLE 0.125 MG TABLET PO (17:08)
[2020-10-13 17:11] LABS: Alveolar/Arterial O2 Gradient 101.3 mmHg; Base Excess ABG -2.1 mEq/l (+/-2.0); Carboxyhemoglobin 0.3 % THb (0-2.0); Device NASAL CANNULA; Fractional Inspired Oxygen 40 %; HCO3 ABG 22.4 mEq/l (22.0-26.0); Methemoglobin ABG 0.3 %THb (0-1.5); Modified Allen's Test Pass; Oxygen Content ABG 12.6 %vol (16.0-22.0); Oxygen Saturation ABG 98.8 % (95.0-100.0); Oxyhemoglobin 97.2 % THb (90.0-100.0); PCO2 ABG 36.8 mmHg (35.0-45.0); PO2 ABG 141.6 mmHg (80.0-100.0); PO2 FiO2 Ratio Arterial Blood 3.54 %; Reduced Hemoglobin 2.2 %THb (0-5.0); Site Drawn LEFT RADIAL; pH ABG 7.402 (7.350-7.450)
--- NOTE | 2020-10-13 17:13 | ECG_ITS ---
Measurements Intervals [place] Rate: 90 P: [place]: 0 QRS: -48 QRSD: 94 T: 8 QT: 345 QTc: 424 Interpretive Statements ATRIAL FIBRILLATION INCOMPLETE RIGHT BUNDLE BRANCH BLOCK LOW QRS VOLTAGE IN PRECORDIAL LEADS POOR R WAVE PROGRESSION, CONSIDER ANTERIOR INFARCT INFERIOR INFARCT, AGE INDETERMINATE BASELINE ARTIFACT- I, II, AVR, AVL, V3, V5 ABNORMAL ECG Electronically Signed On 10-13-2020 20:00:36 CDT by Jf Melvin D.O.
[2020-10-13 17:16] LABS: Glucose Point of Care 71 mg/dl (65-105)
[2020-10-13] MEDS: SIMETHICONE 80 MG TAB.CHEW PO (17:21)
[2020-10-13 18:01] LABS: Troponin I < 0.012 ng/mL (0.000-0.034)
--- NOTE | 2020-10-13 18:42 | PC.NURSE ---
Around 1620 this nurse received a phone call from patient's family member Alisa. Noted that when speaking to her mother, she reported feeling numb all over and difficulty speaking. Upon assessment, this nurse noted patient laying in bed in semi-unger's position with purple noted to face and finger tips. Vital signs noted 75% on room air, 98/58, 94, 20, 97.9. Patient complained of difficulty breathing. Patient placed on 6 Liters of oxygen per minute per nasal cannula. Rapid response called. Dr. Elliott, ICU charge nurse, Med Surg charge nurse, and respiratory therapy responded. New orders received per Dr. Elliott. SPO2 increased to 100% and oxygen levels increased to 100 and oxygen levels tapered to 2LPM/NC. Denies pain at the time of rapid response. Alert and oriented to person, place, situation, and time. Results pending. Argelia BLEDSOE, at bedside.
[2020-10-13 19:53] LABS: Hematocrit 24.4 % (37.0-47.0); Hemoglobin 7.8 g/dL (12.0-15.0); Mean Corpuscular Hemoglobin 34.5 pg (26-34); Mean Platelet Volume 10.8 fl (7.4-10.4); Platelet Count Result 154 k/mm3 (150-375); Red Blood Count 2.26 M/mm3 (4.2-5.4); Red Cell Distribution Width 18.6 % (11.5-14.5); White Blood Count 4.5 K/mm3 (4.5-10.0)
[2020-10-13 20:02] LABS: Anion Gap 4 mmol/L (8-16); Blood Urea Nitrogen 61 mg/dL (7-17); Calcium 9.6 mg/dL (8.4-10.2); Carbon Dioxide 24 mmol/L (22-30); Chloride 108 mmol/L (98-107); Estimated CRCL calculation 41 ml/min; Estimated Glomerular Filt Rate 60; Glucose 92 mg/dL (65-105); Potassium 5.1 mmol/L (3.4-5.0); Sodium 136 mmol/L (137-145)
[2020-10-13 20:14] LABS: Troponin I < 0.012 ng/mL (0.000-0.034)
[2020-10-13] MEDS: traZODone HCL 50 MG TABLET PO (20:29)
[2020-10-13 23:54] LABS: Troponin I < 0.012 ng/mL (0.000-0.034)
[2020-10-14] VITALS (12 sets, daily range): BP systolic 81–99; BP diastolic 44–75; PULSE 68–132; RESP 18–20; TEMP 36.3–36.4; O2SAT 90–96
[2020-10-14] MEDS: chlordiazePOXIDE (*CRX) 5 MG CAPSULE PO (01:52)
[2020-10-14] MEDS: ACETAMINOPHEN 325 MG TABLET 650 MG PO ×3 (01:52→20:20)
--- NOTE | 2020-10-14 02:31 | PC.NURSE ---
10/14/20 at 0230 Patient very tearful, wanting to call daughter, assisted patient in using the telephone. Patient spoke to Diallo for awhile, this nurse updated Diallo on plan of care at this time. TDialRNC
[2020-10-14] MEDS: traMADol/ACETAMINOPHEN (*CRX) (ULTRACET) 37.5/325 MG TABLET 1 TAB PO (03:53)
[2020-10-14] MEDS: LEVOTHYROXINE SODIUM 100 MCG TABLET PO (06:25)
[2020-10-14 06:28] LABS: Hemoglobin 7.8 g/dL (12.0-15.0); Mean Corpuscular HGB Conc 32.5 g/dl (32-36); Mean Corpuscular Hemoglobin 35.8 pg (26-34); Mean Corpuscular Volume 110.1 fl (80-100); Mean Platelet Volume 11.2 fl (7.4-10.4); Platelet Count Result 155 k/mm3 (150-375); Red Blood Count 2.18 M/mm3 (4.2-5.4); Red Cell Distribution Width 18.4 % (11.5-14.5); White Blood Count 5.4 K/mm3 (4.5-10.0)
[2020-10-14 06:39] LABS: Anion Gap 3 mmol/L (8-16); Blood Urea Nitrogen 56 mg/dL (7-17); Calcium 9.7 mg/dL (8.4-10.2); Carbon Dioxide 25 mmol/L (22-30); Chloride 107 mmol/L (98-107); Estimated CRCL calculation 41 ml/min; Estimated Glomerular Filt Rate 60; Glucose 77 mg/dL (65-105); Potassium 5.2 mmol/L (3.4-5.0); Sodium 135 mmol/L (137-145)
--- NOTE | 2020-10-14 08:07 | PM.IMPN ---
Progress Note: A&P Additional Plan pt hyperkalemic, hyponatremic, hypotensive, and hypoglycemic yesterday during rapid, random cortisol ordered CT abd pelvis as pt w pain on OAC w hypotension and tachycardia r/o retroperitoneal bleeding (pt w large body habitus PE exam findings unreliable) cortisol and CT reviewed w/o etiology phone call to daughter, pt chronically hypotensive, called this morning requesting hospice discussion w pt she would like to be DNR and would like hospice eval family in agreement [facility] hosp[facility] consult placed to [facility] director anticipate dc tomorrow home w Hospice care Subjective Date/time seen: 10/14/20 08:07 pt tearful would like to go home requests hospice eval phone call to daughter, pt chronically hypotensive, pt called her at 2am this morning requesting hospice discussion w pt she would like to be DNR and would like hospice eval family in agreement Review of Systems Review of Systems: All systems reviewed & are unremarkable except as noted in HPI and below Exam Narrative: Exam Narrative: GEN: NAD, cooperative, obese HEENT: NCAT, MMM, EOMI Neck: no JVD Heart: IRR Lungs: CTA B/l Abd: soft, NT, ND, bowel sounds normoactive Ext: moves all, no cyanosis, no clubbing, 1+ pitting edema LE b/l Neuro: no focal deficits CN intact Psych: mood and affect congruent depressed Objective Data Vital Signs Vital Signs: Vital Signs - 24 hr 10/13/20 09:00 10/13/20 12:00 10/13/20 12:25 Temperature 97.5 F L 96.5 F L Pulse Rate 95 80 76 Respiratory Rate 16 16 Blood Pressure 92/60 L 64/30 L Pulse Oximetry 100 97 10/13/20 13:08 10/13/20 14:57 10/13/20 16:00 Temperature Pulse Rate 94 80 Respiratory Rate Blood Pressure 84/60 L 88/50 L Pulse Oximetry 10/13/20 17:07 10/13/20 20:00 10/13/20 20:31 Temperature Pulse Rate 95 106 H 81 Respiratory Rate 26 H Blood Pressure 101/87 Pulse Oximetry 10/13/20 22:00 10/14/20 00:00 10/14/20 04:00 Temperature 96.4 F L Pulse Rate 71 80 132 H Respiratory Rate 20 Blood Pressure 96/67 L Pulse Oximetry 100 10/14/20 05:29 Temperature 97.4 F L Pulse Rate 71 Respiratory Rate 20 Blood Pressure 90/44 L Pulse Oximetry 90 Intake/Output Intake/Output: Intake & Output 10/11/20 10/12/20 10/13/20 10/14/20 23:59 23:59 23:59 23:59 Intake Total 760 1230 1135 Output Total 1500 700 Balance -463 934 7668 Meds/Results Medications: Active Medications Generic Name Dose Route Start Last Admin Trade Name Freq PRN Reason Stop Dose Admin Acetaminophen 650 mg 10/09/20 21:39 10/14/20 06:24 Acetaminophen 325 Mg Tablet PO 650 mg Q4H PRN Administration Mild Pain (1-3) or Fever Apixaban 5 mg 10/09/20 17:00 10/13/20 17:07 Apixaban 5 Mg Tablet PO 5 mg BID SYBIL Administration Bisacodyl 10 mg 10/11/20 10:50 Bisacodyl 10 Mg Suppository RECTAL QAM PRN Constipation Chlordiazepoxide HCl 5 mg 10/10/20 15:42 10/14/20 01:52 Chlordiazepoxide (*Crx) 5 Mg Capsule PO 5 mg Q6H PRN Administration Agitation Docusate Sodium 100 mg 10/10/20 21:00 10/13/20 20:29 Docusate Sodium 100 Mg Capsule PO 100 mg Q12HR SYBIL Administration Levothyroxine Sodium 100 mcg 10/09/20 08:50 10/14/20 06:25 Levothyroxine Sodium 100 Mcg Tablet PO 100 mcg DAILY@0630 SYBIL Administration Metoprolol Tartrate 12.5 mg 10/13/20 21:00 10/13/20 20:31 Metoprolol Tartrate 12.5 Mg Tablet PO Not Given Q12HR SYBIL Midodrine 5 mg 10/14/20 09:00 Midodrine Hcl 2.5 Mg Tablet PO TID SYBIL Polyethylene Glycol 17 gm 10/10/20 09:00 10/13/20 08:04 Polyethylene Glycol 3350 17 Gm Powd.Pack PO 17 gm QAM SYBIL Administration Pramipexole Dihydrochloride 0.125 mg 10/09/20 21:45 10/13/20 17:08 Pramipexole 0.125 Mg Tablet PO 0.125 mg QPM SYBIL Administration Sertraline HCl 25 mg 10/11/20 09:00 10/13/20 08:02 Sertraline Hcl 25 Mg Tablet PO 25 mg DAILY SC
[2020-10-14] MEDS: polyethylene glycoL 3350 17 GM POWD.PACK PO (09:18)
[2020-10-14] MEDS: SERTRALINE HCL 25 MG TABLET PO (09:18)
[2020-10-14] MEDS: MIDODRINE HCL 2.5 MG TABLET 5 MG PO ×3 (09:18→17:57)
[2020-10-14] MEDS: DOCUSATE SODIUM 100 MG CAPSULE PO ×2 (09:18→20:20)
[2020-10-14] MEDS: SIMETHICONE 80 MG TAB.CHEW PO ×4 (09:18→20:21)
[2020-10-14] MEDS: METOPROLOL TARTRATE 12.5 MG TABLET PO ×2 (09:19→20:21)
[2020-10-14] MEDS: THIAMINE HCL 50 MG TABLET PO (09:20)
[2020-10-14] MEDS: APIXABAN 5 MG TABLET PO (09:20)
--- NOTE | 2020-10-14 11:10 | PCOTNOTE ---
Attempted to see patient at this time, however patient was with daughter and [facility] [employer] for hospice evaluation.
[2020-10-14] MEDS: SODIUM CHLORIDE 0.9% IV 1,000 ML 75 ML IV CONT (13:04)
[2020-10-14] MEDS: CHOLECALCIFEROL 1,000 UNITS TABLET 2000 UNITS PO (17:56)
[2020-10-14] MEDS: PRAMIPEXOLE 0.125 MG TABLET PO (17:58)
[2020-10-14] MEDS: traZODone HCL 50 MG TABLET PO (20:21)
--- NOTE | 2020-10-14 23:16 | PC.NURSE ---
Spoke to Wendi Oliver at 23:15 about patients low BP (81/55) and she ordered a stat bolus of 500ml to try and help increase her pressure. -AEW RN
[2020-10-14] MEDS: SODIUM CHLORIDE 0.9% IV 500 ML IV CONT (23:44)
[2020-10-15] VITALS: PULSE 83
[2020-10-15] MEDS: ACETAMINOPHEN 325 MG TABLET 650 MG PO ×2 (02:10→06:51)
[2020-10-15] MEDS: DEXTROSE 50% 25 GM/50 ML SYRINGE (02:35)
--- NOTE | 2020-10-15 02:40 | PC.NURSE ---
patient woke up around 02:00 stating she was hungry, offered her some food and checked her sugar, she was at a critical low of 17. Pushed dextrose and called Dr. Velasquez to let her know. Put in orders for hypoglycemia protocol. She asked that we halt all insulin at this time. -ELVIA RN
[2020-10-15 02:56] LABS: Glucose Point of Care 73 mg/dl (65-105)
[2020-10-15 02:56] LABS: Glucose Point of Care < 20 mg/dl (65-105)
[2020-10-15 04:00] VITALS: PULSE 92
[2020-10-15] MEDS: chlordiazePOXIDE (*CRX) 5 MG CAPSULE PO (05:04)
[2020-10-15] MEDS: LEVOTHYROXINE SODIUM 100 MCG TABLET PO (05:04)
[2020-10-15 05:33] VITALS: BP 98/64; PULSE 91; RESP 18; TEMP 36.6; O2SAT 97
[2020-10-15 08:00] VITALS: PULSE 137
--- NOTE | 2020-10-15 08:27 | PM.DS ---
DS: Admitting Diagnosis Admitting Diagnosis Admitting Diagnosis: (1) Frequent falls: Code(s): R29.6 - Repeated falls Status: Acute (2) Hypoglycemia: Code(s): E16.2 - Hypoglycemia, unspecified Status: Acute (3) Chronic anticoagulation: Code(s): Z79.01 - long term acute care registered nurse (current) use of anticoagulants Status: Acute (4) Essential (primary) hypertension: Code(s): I10 - Essential (primary) hypertension Status: Acute (5) Chronic atrial fibrillation: Code(s): I48.20 - Chronic atrial fibrillation, unspecified Status: Acute (6) CKD (chronic kidney disease) stage 3, GFR 30-59 ml/min: Code(s): N18.3 - Chronic kidney disease, stage 3 (moderate) Status: Acute (7) Hematoma of frontal scalp: Code(s): S00.03XA - Contusion of scalp DS: Discharge Diagnosis Discharge Diagnosis (1) Positive blood culture: Code(s): R78.81 - Bacteremia Status: Acute (2) Acute on chronic kidney failure: Code(s): N17.9 - Acute kidney failure, unspecified; N18.9 - Chronic kidney disease, unspecified Status: Acute (3) Syncope: Code(s): R55 - Syncope and collapse Status: Acute (4) Electrolyte abnormality: Code(s): E87.8 - Other disorders of electrolyte and fluid balance, not elsewhere classified Status: Acute (5) Abnormal finding on CT scan: Code(s): R93.89 - Abnormal findings on diagnostic imaging of other specified body structures Status: Acute (6) Acute dehydration: Code(s): E86.0 - Dehydration Status: Acute (7) Frequent falls: Code(s): R29.6 - Repeated falls Status: Acute (8) Generalized weakness: Code(s): R53.1 - Weakness Status: Acute (9) Impaired mobility and activities of daily living: Code(s): Z74.09 - Other reduced mobility; Z78.9 - Other specified health status Status: Acute (10) Hematoma of frontal scalp: Code(s): S00.03XA - Contusion of scalp, initial encounter Status: Acute (11) Frequent falls: Code(s): R29.6 - Repeated falls Status: Acute (12) Chronic anticoagulation: Code(s): Z79.01 - [facility] (current) use of anticoagulants Status: Acute (13) CHF (congestive heart failure): Qualifiers: Heart failure chronicity: chronic Heart failure type: diastolic Qualified Code(s): I50.32 - Chronic diastolic (congestive) heart failure Code(s): I50.9 - Heart failure, unspecified Status: Acute (14) Edema: Code(s): R60.9 - Edema, unspecified Status: Acute (15) Hyperparathyroidism: Code(s): E21.3 - Hyperparathyroidism, unspecified Status: Acute (16) Hypomagnesemia: Code(s): E83.42 - Hypomagnesemia Status: Acute (17) Essential (primary) hypertension: Code(s): I10 - Essential (primary) hypertension Status: Acute (18) Vitamin D deficiency: Code(s): E55.9 - Vitamin D deficiency, unspecified Status: Acute (19) Urinary incontinence in female: Code(s): R32 - Unspecified urinary incontinence Status: Acute (20) RLS (restless legs syndrome): Code(s): G25.81 - Restless legs syndrome Status: Acute (21) Osteoporosis without current pathological fracture: Qualifiers: Osteoporosis type: unspecified Qualified Code(s): M81.0 - Age-related osteoporosis without current pathological fracture Code(s): M81.0 - Age-related osteoporosis without current pathological fracture Status: Acute (22) Insomnia: Qualifiers: Insomnia type: unspecified Qualified Code(s): G47.00 - Insomnia, unspecified Code(s): G47.00 - Insomnia, unspecified Status: Acute (23) Hypothyroidism (acquired): Code(s): E03.9 - Hypothyroidism, unspecified Status: Acute (24) Chronic diastolic heart failure: Code(s): I50.32 - Chronic diastolic (congestive) heart failure
[2020-10-15] MEDS: polyethylene glycoL 3350 17 GM POWD.PACK PO (08:55)
[2020-10-15] MEDS: MIDODRINE HCL 2.5 MG TABLET 5 MG PO ×2 (08:56→12:58)
[2020-10-15] MEDS: SERTRALINE HCL 25 MG TABLET PO (08:56)
[2020-10-15] MEDS: SIMETHICONE 80 MG TAB.CHEW PO (08:56)
[2020-10-15] MEDS: DOCUSATE SODIUM 100 MG CAPSULE PO (08:56)
[2020-10-15 08:57] VITALS: PULSE 103
[2020-10-15] MEDS: METOPROLOL TARTRATE 12.5 MG TABLET PO (08:57)
[2020-10-15 09:14] VITALS: O2SAT 96
[2020-10-15] MEDS: traMADol/ACETAMINOPHEN (*CRX) (ULTRACET) 37.5/325 MG TABLET 1 TAB PO (10:52)
--- NOTE | 2020-10-15 15:48 | PC.NURSE ---
Called RAKAN Stout to notify her patients ria was found in room after discharge. Argelia said she would work on finding somebody to pick it up.
== END 2020-10-15 13:39 | disposition hospice, home (50) | DRG 641 ==
LOC: ANHED 10-09 05:41 → ANHIMU 10-09 06:57 → ANH3MEDSUR 10-12 10:24 → ANHIMU 10-18 14:53
PROVIDERS: Hospitalist; Admitting Provider Internal Medicine; Emergency Provider Emergency Medicine; PCP Family Medicine; Visit Provider Physician Assistant
DX: E86.0 Dehydration (principal); N17.9 Acute kidney failure, unspecified; I48.20 Chronic atrial fibrillation, unspecified; I13.0 Hypertensive heart and chronic kidney disease with heart failure and stage 1 through stage 4 chronic kidney disease, or unspecified chronic kidney disease; I50.32 Chronic diastolic (congestive) heart failure; R78.81 Bacteremia; E16.0 Drug-induced hypoglycemia without coma; Z20.822 Contact with and (suspected) exposure to COVID-19; I95.9 Hypotension, unspecified; Z66 Do not resuscitate; E83.41 Hypermagnesemia; E87.1 Hypo-osmolality and hyponatremia; E87.5 Hyperkalemia; R93.89 Abnormal findings on diagnostic imaging of other specified body structures; N18.30 Chronic kidney disease, stage 3 unspecified; E03.9 Hypothyroidism, unspecified; R29.6 Repeated falls; S00.03XA Contusion of scalp, initial encounter; R55 Syncope and collapse; G25.81 Restless legs syndrome; R32 Unspecified urinary incontinence; M81.0 Age-related osteoporosis without current pathological fracture; I35.0 Nonrheumatic aortic (valve) stenosis; F41.9 Anxiety disorder, unspecified; Z74.09 Other reduced mobility; Z78.9 Other specified health status; Z79.899 Other long term (current) drug therapy; Z85.038 Personal history of other malignant neoplasm of large intestine
CPT/HCPCS: 36415; 36600; 70450; 70486; 71045; 71250; 71275; 72125; 73610; 74176; 74177; 80048; 80053; 81001; 82375; 82533; 82805; 82948; 83050; 83605; 83735; 84484; 85014; 85018; 85025; 85027; 85610; 85730; 87040; 87077; 87186; 93005; 96360; 96361; 97110; 97116; 97161; 97165; 97530; 97535; 99285; A9270; C9803; J7030; J7040; Q9967; U0003; U0005